=== PATIENT | female | born 1960 | race Caucasian/White ===

== ENCOUNTER 2023-04-11 14:45 | Outpatient (OUT) | payer BC, SELFPAY ==
--- NOTE | 2023-04-11 14:50 | MM_ITS ---
Patient Name: DESHAWN MANCIA MR#: [id number] : 1960 Exam Date: 04/11/2023 Ordering Doctor: IRMA Loredo CNP RADIOLOGY REPORT PROCEDURE: MM TOMOSYNTHESIS SCREENING BI COMPARISON: MG STEREO CORE NDL W CLIP LT, 11/16/2021. MAMMO POST BIOPSY LEFT, 11/16/2021. INDICATIONS: Screening Mammogram Calculator Name NCI Breast Cancer Risk Assessment Tool 5 Year Breast Cancer Risk 1.70% Lifetime Breast Cancer Risk 7.20% Personal Breast Cancer No Personal Ovarian Cancer No Treatments None Family Cancers None LOCATION: [facility] BREAST COMPOSITION: Heterogeneously dense,which may obscure small masses. FINDINGS: DIAGNOSTIC CATEGORY 2--BENIGN FINDING. NO CHANGE FROM COMPARISON. Scattered benign-appearing calcifications are present. Scattered benign-appearing lymph nodes are present. RIGHT BREAST: No significant suspicious finding. LEFT BREAST: No significant suspicious finding. Stable areas of focal asymmetry and two micro clip markers upper outer quadrant. RECOMMENDATIONS: ROUTINE MAMMOGRAM AND CLINICAL EVALUATION IN 12 MONTHS. PLEASE NOTE: A NORMAL MAMMOGRAM DOES NOT EXCLUDE THE POSSIBILITY OF BREAST CANCER. A CLINICALLY SUSPICIOUS PALPABLE LUMP SHOULD BE BIOPSIED. Dictated by: William Melchor MD on 04/12/2023 at 09:23 Approved by: William Melchor MD on 04/12/2023 at 09:26
== END 2023-04-11 14:46 | disposition home or self-care (01) ==
LOC: MAMMO 14:45
PROVIDERS: PCP Nurse Practitioner; Visit Provider Nurse Practitioner
DX: Z12.31 Encounter for screening mammogram for malignant neoplasm of breast (principal)
CPT/HCPCS: 77063; 77067

== ENCOUNTER 2025-03-27 07:36 | Outpatient (OUT) | payer MEDICARE, SELFPAY ==
--- OUTSIDE RECORDS SUMMARY | 2025-03-18 06:27 | XMS_ITS | Continuity of Care Document ---
Author Organization [facility] Address [address] [place] [address] Phone Care Team Providers Care Travel Agency Manager Name Role Phone Alexia Loredo NP-C Attending Provider Alexia Loredo NP-Francisco Primary Care Provider Care Teams Patient Care Team Team Status: Active Member Role/Relationship Status Dates Alexia Loredo NP-Francisco Primary Care Provider Active Visit Care Team Team Status: Active Member Role/Relationship Status Dates IFRAH Kahn Attending Provider Active Start: January 27, 2025 Patient Care Team Team Status: Inactive Member Role/Relationship Status Dates IFRAH Kahn Primary Care Provider Active Start: March 18, 2025 End: March 18, 2025Desire Kahntending ProviderActiveStart: March 18, 2025 End: March 18, 2025 Chief Complaint and Reason for Visit Chief Complaint Admit Date Medicare Wellness March 18, 2025 10:24am Reason for Visit Admit Date Elevated blood pressure reading March 18, 2025 10:24am Encounter for initial annual wellness visit (AWV) in Medicare patient March 18, 2025 10:24am Encounter for screening mamm ogram for malignant neoplasm of breast March 18, 2025 10:24am Epigastric pain March 18, 2025 10:24am Hiatal hernia March 18, 2025 10:24am Knee pain, left March 18, 2025 10:24am Mixed hyperlipidemia March 18, 2025 10:24am Allergies, Adverse Reactions, Alerts Allergen Type Severity Reaction Last Updated Verified Status No Known Allergies Allergy Unknown March 18, 2025 10:55amYesActive Social History Smoking Status Unknown if ever smoked Observation Status Observation Response Date of Response Legal Sex Female (finding) Sex Assigned At BirthFemaleMay 1960 Family History Relationship Condition Age at Onset Recorded Date/T tianna mother Diabetes mellitus Unknown Problems Active Problems Problem Diagnosis/Recorded Date Onset Date Stat us Polyp of urethra March 15, 2025 2:41pm Unknown Active Encounter for initial annual wellness visit (AWV) in Medicare patient March 18, 2025 6:22am Unknown A ctive Encounter for screening mamm ogram for malignant neoplasm of breast March 13, 2025 6:12pm Unknown Activ e Elevated blood pressure reading March 15, 2025 2:4 1pm Unknown Active Mixed hyperlipidemia March 18, 2025 6:24am Unknow n Active Epigastric pain March 18, 2025 11:22am Unknown Active Diverticulitis of colon with perforation March 15, 2025 2:41pm Unknown Active Knee pain, left March 18, 2025 11:21am Unknown Active Hiatal hernia March 18, 2025 11:22am Unknown Active Medications Medication Status Dose Units Route Directions Qty Days Refills S tart Date Stop Date End Date Reason(s) Instructions Adherence Multivitamin tablet Active 1 TAB PO Daily March 18, 2025 12:00amComplies with drug therapyAscorbic Acid (Vitamin C) 500 mg uvizkwPqatvi829GBSQUyrngCosjcovk 11th, 2025 12:00amComplies with drug therapyOmega-3 Fatty Acids ntzsjewIfgmso531CQCWOazbqZsjedmoq 11th, 2025 12:00am Complies with drug therapyMecobalamin (Vitamin B12) 500 mcg tablet,chewable ActiveMCGPONovember 2024 12:00amComplies with drug therapyOmeprazole 20 mg capsule,delayed release(DR/EC)Zzpkpr89BNXPFzddc756Raupgnqi 11th, 2025 12:00am Epigastric pain Hiatal hernia Epigastric pain Diaphragmatic hernia without obstruction or gangreneComplies with drug therapy Vital Signs Vital Reading Result Reference Range Collection Date/Time Height 65 [in_i] March 18, 2025 10:27uyYvlmpo13.31 kgMarch 18, 2025 10:37amBody Luxpksykllc50.5 [degF]97.6-99.0March 18, 2025 10:37amHeart Rate72 /min 60-100March 18, 2025 10:37amRespiratory rate18 /caf42-76EgvomuqtMarch 18, 2025 10:37amOxygen saturation by Pulse zwqpoxmg70 %95-100March 18, 2025 10:37am BP Zwuvkfcl068 mm[Hg]100-140March 18, 2025 10:37amBP Wruukwbvy02 mm[Hg] 60-100March 18, 2025 10:37amBMI (Body Mass Index)34.9 kg/f8TlrlvjudMarch 18, 2025 10:37am Advance Directives Advance Directive Response Recorded Date/ Time Advance Directives No January 12:36pm Insurance Providers Guarantor Edie Braxton Address [address] [place] [id number] Info.Home Phone: Coverage Status Update:2025 Payer Group Member ID Coverage Type Subscriber Relationship to Subscriber Effective Date Expiration Date Medicare [id number] Posey Id: [id number] [address] [facility] [address] Home Phone: Email: [email or web address] PFFS [id number] Posey Id: [id number] [address] [facility] [address] Home Phone: Email: [email or web address] Encounters Encounter Location(s) Arrival/Admit Date Discharge/Departure Date Discharge/Departure Disposition Provider(s) Non-patient / Non-visit -[facility] Family Medicine [facility] [place] [facility] [place] [place] 2024 11:59pm Alexia Loredo NP-IVONeparted Physician/Provider Office Visit-[facility] Family Medicine [facility]2024 10:24amNovember 2024 11:25amDischarged to home care or self care (routine discharge)ONEL KahnC Recent Diagnosis Onset Date Admit Date Elevated blood pressure reading Unknown March 18, 2025 10:24am Encounter for initial annual wellness visit (AWV) in Medicare patient Unknown March 18, 2025 10:24am Encounter for screening mamm ogram for malignant neoplasm of breast Unknown March 18, 2025 10:24 am Epigastric pain Unknown March 18, 025 10:24am Hiatal hernia Unknown March 18, 025 10:24am Knee pain, left Unknown March 18 025 10:24am Mixed hyperlipidemia Unknown March 182024 10:24am Assessments Diagnosis Onset Date Resolution Status Admit Date Elevated blood pressure reading acuteNovember 2024 10:24amEncounter for initial annual wellness visit (AWV) in Medicare patientacuteNovember 2024 10:24amEncounter for screening mammogram for malignant neoplasm of breastacuteNov2024 10:24am Epigastric painacuteNovember 2024 10:24amHiatal herniaacuteNovember 2024 10:24amKnee pain, leftacuteNovember 2024 10:24amMixed hyperlipidemia acuteNovember 2024 10:24am Plan of Treatment Author [facility]ia [facility]oredo [facility]Authored[facility] 2024 6:25amReviewed Ht/Wt/BMI Recommend eye exams yearly Recommend dental exam: twice a year Balance work/leisure activities exercise is recommended most days of the week (appropriate as chronic conditions allow) follow up yearly and prn will order mammogram no current meds check labs recommend diet low in fat and processed foods no current medications DASH diet Limit caffeine Contact office if chest pain, pressures, dizziness, shortness of breath, swelling in the legs Recommend slow position changes if you develop dizziness with position changes Future Tests Future scheduled test information is unavailable Pending Tests Test Name Ordered Date Scheduled Date Comprehensive Metabolic Panel March 18 6:25am XR knee LT 3V - NOT FOR ER USEMarch 18, 2025 11:21amMM screening mammo BI w/CADNovember 2024 6:23am Future Visits Future appointment information is unavailable Future Procedures Procedure Name Ordered Date Scheduled Date Dipstick and Microscopic March 18, 2025 6:2 5am Complete Blood Count Auto DiffNovember 2024 6:25amLipid PanelNovember 2024 6:25amThyroid Stimulating HormoneMarc[facility] 20[facility] 6:25am Future Medications Future medication information is unavailable Patient Instructions Patient instructions are unavailable
--- OUTSIDE RECORDS SUMMARY | 2025-03-27 07:43 | XMS_ITS | Clinical Summary ---
Author Organization [facility] Address [address] [place] [address], [address] [place] [address] Care Team Providers Care Fitting Supervisor Name Role Phone James David Joel APRN - HEAD OF CONSERVATION Primary Care Provider Allergies No known active allergies Medications MedicationSigDispense QuantityRefillsLast FilledStart DateEnd DateStatus Multiple Vitamin (MULTI VITAMIN DAILY PO) Take by mouthActive Blood Pressure KIT Indications:Elevated blood pressure reading1 kit by Does not apply route 2 times daily 1 kit 01/17/2019Active omeprazole (PRILOSEC) 20 MG delayed release capsule Indications:Gastroesophageal reflux disease, esophagitis presence not specified Take 1 capsule by mouth daily 90 capsule 01/17/2019Active levothyroxine (SYNTHROID) 75 MCG tablet Indications:Hypothyroidism, unspecified typeTake 1 tablet by mouth daily 60 tablet 02/01/2019Active Active Problems ProblemNoted DateDiagnosed EzqtBgmqzwvytesiin50/25/2019Elevated blood pressure egdlhbk8301/30/20190082Kdnpcnb92/25/2019Gastroesophageal reflux eqsfbak1501/17/2019 Resolved Problems ProblemNoted DateDiagnosed DateResolved DateColon cancer gvykzisxi09/11/2019 03/17/2019 Immunizations ImmunizationAdministration DatesNext DueInfluenza Virus Rfhczql0502/21/2019 Family History Medical HistoryRelationNameCommentsHigh Blood PressureFatherHigh Blood Pressure MotherRelationNameStatusCommentsFatherAliveMotherAlive Social History Tobacco UseTypesPacks/DayYears UsedDateSmoking Tobacco: FormerCigarettes Smokeless Tobacco: NeverAlcohol UseStandard Drinks/WeekCommentsYes0 (1 standard drink = 0.6 oz pure alcohol)PHQ-2AnswerDate RecordedPHQ-2 Ncouz446 CommentsNoSex and Gender InformationValueDate RecordedSex Assigned at BirthNot on fileLegal TsyYozlhr19/23/2019 2:01 PM EDTGender IdentityNot on file Sexual OrientationNot on file Last Filed Vital Signs Vital SignReadingTime TakenCommentsBlood Jhxkvlsg478/7802/20/2019 3:30 PM EDT Dnybi767402/20/2019 3:30 PM JMHXnyksemchtb39.1 ??C (97 ??F)02/20/2019 2:52 PM EDT Respiratory Fyqu5880 3:30 PM EDTOxygen Giiordhoai33%02/20/2019 3:30 PM EDTInhaled Oxygen Concentration--Ntackt18.7 kg (200 lb)02/20/2019 1:37 PM EDT Vavogb999.6 cm (5' 6 )02/20/2019 1:37 PM EDTBody Mass Index32.281 1:37 PM EDT Plan of Treatment Not on file Insurance Care Teams Team MemberRelationshipSpecialtyStart DateEnd Date David Ramirez APRN - HEAD OF CONSERVATION PCP - GeneralNurse Practitioner, Family12/28/18
--- OUTSIDE RECORDS SUMMARY | 2025-03-27 07:43 | XMS_ITS | Clinical Summary ---
Author Organization [employer] [facility] tem Address [facility] [place] [address] Care Team Providers Care Rig Mechanic Name Role Phone Alexia Loredo MANAGER [employer] Primary Care Provider Allergies No known active allergies Medications MedicationSigDispense QuantityRefillsLast FilledStart DateEnd DateStatus sod sulf-pot chloride-mag sulf 1.479-0.188- 0.225 gram tablet See instructional sheet given by office. Patient was given a [employer] voucher to use, this is not to be ran through patients insurance. 24 tablet 04/20/2022ctive omeprazole (PriLOSEC) 40 mg capsule Take 1 capsule (40 mg total) by mouth in the morning.03/31/2022ctive MULTIVITAMIN ORAL Take by mouth daily. Women's One A Day 50+Active psyllium husk (METAMUCIL ORAL) Take 2 tablets by mouth in the morning.Active Active Problems No known active problems Family History Medical HistoryRelationNameCommentsNo Known ProblemsFatherHypertensionMother RelationNameStatusCommentsFatherDeceasedMotherAlive Social History Tobacco UseTypesPacks/DayYears UsedDateSmoking Tobacco: FormerCigarettesQuit: 2018Smokeless Tobacco: Never Tobacco Cessation:Counseling Given: Not Answered Alcohol UseStandard Drinks/WeekCommentsYes0 (1 standard drink = 0.6 oz pure alcohol)sociallyChildcareAnswerDate JvndtitfFmzjbcevdRdowjas78/12/2019Employment AnswerDate JjwvsbzlGvbkscajkhIcywrbh15/12/2019Hunger ScreeningAnswerDate RecordedWithin the past 12 months we worried whether our food would run out before we got money to buy more.Never True04/20/2022Within the past 12 months the food we bought just didn't last and we didn't have money to get more.Never True04/20/2022CommentsUnknownSex and Gender InformationValueDate RecordedSex Assigned at BirthNot on fileLegal McjTmcwva45/06/2015 12:12 PM EDT Gender IdentityNot on fileSexual OrientationNot on file Last Filed Vital Signs Vital SignReadingTime TakenCommentsBlood Jznnldse647/80106/21/2021 12:53 PM EST Pulse--Szktdmkjhuy36.5 ??C (97.7 ??F)04/20/2022 12:53 PM ESTRespiratory Rate-- Oxygen Saturation--Inhaled Oxygen Concentration--Qtppji07.5 kg (195 lb) 04/20/2022 12:53 PM NMJWswjrz702.6 cm (5' 6 )04/20/2022 12:53 PM ESTBody Mass Index31.4704/20/2022 12:53 PM EST Plan of Treatment Health MaintenanceDue DateLast DoneCommentsDepression Asgxljbaw67/23/1972Tobacco Zkgaoxhzo18/23/1972DTaP,Tdap and Td Vaccines (1 - Tdap)09/27/1978Zoster (Shingles) Vaccine (1 of 2)09/27/2009dult BMI Zklethpnu50Fall Risk Abcoaxhhy06/23/2025OVID-19 Vaccine ( season)2025 03/18/2021, 06/08/2020, 05/15/2020Influenza Vtjgpoy80/, 02/21/2019, 02/19/2018, Additional history enyssyBafasiqqped99 RSV ( or age 60+ yrs) (1 - 1-dose 75+ series)09/27/2034 Medical Devices Not on file Procedures Procedure NamePriorityDate/TimeAssociated DiagnosisCommentsCOLONOSCOPYRoutine 05/25/2022 Diverticulitis from Last 3 Months or Most Recently Relevant to Health Maintenance Results * Colonoscopy (05/25/2022) Narrative Authorizing ProviderResult TypeResult StatusMichaeguillermo DELANEY PROCEDURE ORDERABLESFinal ResultPerforming OrganizationAddressCity/State/ZIP CodePhone Number MANUALLY TRANSCRIBED RESULTS from Last 3 Months or Most Recently Relevant to Health Maintenance Insurance Care Teams Team MemberRelationshipSpecialtyStart DateEnd Date Alexia Loredo, MANAGER [employer] PCP - GeneralNurse Qvazfikzfglr81/22/22
--- OUTSIDE RECORDS SUMMARY | 2025-03-27 07:43 | XMS_ITS | Clinical Summary ---
Author Organization [facility] Address [address] [place] [address] Care Team Providers Care Billing And Quality Technician Name Role Phone Aakash Hoffmann MD Primary Care Provider [phone] Alexia Loredo NP Unavailable [phone] Allergies No known active allergies Active Problems ProblemNoted DateDiagnosed DateEncounter for screening mammogram for malignant neoplasm of gfknba2605/15/2023 Family History Medical HistoryRelationNameCommentsHypertensionFatherHypertensionMotherRelation NameStatusCommentsFatherMother Social History Tobacco UseTypesPacks/DayYears UsedDateSmoking Tobacco: Every DayCigarettes Tobacco Cessation:Ready to Q uit: Not Asked; Counseling Given: Not Answered Alcohol UseStandard Drinks/TpdgRaceugjfOul61 (1 standard drink = 0.6 oz pure alcohol)CommentsUnknownSex and Gender InformationValueDate RecordedSex Assigned at BirthNot on fileLegal PuiCebxnr84/14/2023 12:34 PM EDTGender IdentityNot on fileSexual OrientationNot on file Last Filed Vital Signs Vital SignReadingTime TakenCommentsBlood Ckjhrhbi254/70005/10/2023 1:42 PM EST Ndhpt681605/10/2023 1:42 PM TQBUzisrrvlnfq56.6 ??C (97.8 ??F)05/10/2023 1:42 PM ESTRespiratory Klhp704405/10/2023 1:42 PM ESTOxygen Saturation--Inhaled Oxygen Concentration--Singpm29.5 kg (204 lb)05/10/2023 1:42 PM UWACljeue780.6 cm (5' 6 )05/10/2023 1:42 PM ESTBody Mass Index32.9305/10/2023 1:42 PM EST Plan of Treatment Not on file Insurance Care Teams Team MemberRelationshipSpecialtyStart DateEnd Date Aakash Hoffmann MD PCP - GeneralFamily Medicine11/18/22 Alexia Loredo NP Referring PhysicianNurse Practitioner11/18/22
--- OUTSIDE RECORDS SUMMARY | 2025-03-27 07:49 | XMS_ITS | CCD ---
Author Organization [facility]iniSyn[facility] Care Team Providers Care Habilitation Worker Name Role Phone Torrey Snow Primary Care Provider [phone] TORREY SNOW Primary Care Unavailable FARHAT JOHNSON Attending Unavailable TORREY SNOW Referring Unavailable TORREY SNOW Primary Care Unavailable TORREY SNOW Referring Unavailable TORREY SNOW Primary Care Unavailable TORREY SNOW Referring Unavailable TORREY SNOW Primary Care Unavailable TORREY SNOW Referring Unavailable TORREY SNOW Primary Care Unavailable MICAELA GOULD Admitting Unavailable MICAELA GOULD Attending Unavailable TORREY SNOW Primary Care Unavailable DR MOMO GOLDMAN Consulting Unavailaaron LADD, DR CANDICE Noyola Attending Unavailable WILBERTO, DR CANDICE Noyola Admitting Unavailable AICHHOLZ, SCHOOL PATROL ALEXIA Primary Care Unavailable Ruiz, DR Thomas Consulting Unavailable WILBERTO, DR CANDICE Noyola Consulting Unavailable JOEY, DR LIU Consulting Unavailable DILLAN, DEANNA Consulting Unavailable AICHHOLZ, SCHOOL PATROL ALEXIA Consulting Unavailable AICHHOLZ, SCHOOL PATROL ALEXIA Primary Care Unavailable AICHHOLZ, SCHOOL PATROL ALEXIA Attending Unavailable AICHHOLZ, SCHOOL PATROL ALEXIA Admitting Unavailable AICHHOLZ, SCHOOL PATROL ALEXIA Consulting Unavailable AICHHOLZ, SCHOOL PATROL ALEXIA Primary Care Unavailable AICHHOLZ, SCHOOL PATROL ALEXIA Attending Unavailable AICHHOLZ, SCHOOL PATROL ALEXIA Admitting Unavailable AICHHOLZ, SCHOOL PATROL ALEXIA Consulting Unavailable AICHHOLZ, SCHOOL PATROL ALEXIA Primary Care Unavailable AICHHOLZ, SCHOOL PATROL ALEXIA Attending Unavailable AICHHOLZ, SCHOOL PATROL ALEXIA Admitting Unavailable DR MICAELA AQUINO Consulting Unavailable Ruiz, DR Thomas Consulting Unavailable AICHHOLZ, SCHOOL PATROL ALEXIA Primary Care Unavailable AICHHOLZ, SCHOOL PATROL ALEXIA Attending Unavailable AICHHOLZ, SCHOOL PATROL ALEXIA Admitting Unavailable AICHHOLZ, SCHOOL PATROL ALEXIA Consulting Unavailable SUSI, DR MOMO Beavers Consulting Unavailaaron LOREDO, SCHOOL PATROL ALEXIA Primary Care Unavailable SUSI, DR MOMO Beavers Attending Unavailaaron GOLDMAN, DR MOMO Beavers Admitting UnavailDR Maurice Lima Consulting Unavailable AICHHOLZ, SCHOOL PATROL ALEXIA Primary Care Unavailable AICHHOLZ, SCHOOL PATROL ALEXIA Attending Unavailable AICHHOLZ, SCHOOL PATROL ALEXIA Admitting Unavailable AICHHOLZ, SCHOOL PATROL ALEXIA Consulting Unavailable SUSI, DR MOMO Beavers Consulting Unavailaaron LOREDO, SCHOOL PATROL ALEXIA Primary Care Unavailable SUSI, DR MOMO Beavers Attending Unavailaaron GOLDMAN, DR MOMO Beavers Admitting UnavailHENRIQUE Baires Consulting Unavailable EVITA YOUSSEF Consulting Unavailable SHINE MIRELES Consulting Unavailable Alexia Hall Attending Provider Alexia Hall Primary Care Provider Medications Current Medications MedicationDrug Class(es)DatesSig (Normalized)Sig (Original)ascorbic acid 500 mg oral tablet (1 source)Vitamin CStart: 04-35-0077fxmd 1 tablet by mouth once dailyAscorbic Acid (Vitamin C) 500 mg tablet Active 500 MG PO Daily March 18, 2025 12:00am Complieswith drug therapyazithromycin 250 mg oral tablet (2 sources)Macrolide AntimicrobialStart: 01-04-2019 End: 67-61-0472kryg 1 tablet by mouth once dailyazithromycin (ZITHROMAX) 250 MG tablet Take 1 tablet by mouth daily for 4 days 4 tablet 0 01/04/2019 01/08/2019 ActiveStart: 01-04-2019 End: 57-82-8111hwwcbasdhouy (ZITHROMAX) tablet 500 mgBlood Pressure KIT (1 source)Start: 22-77-4498Gfrmq Pressure KIT Indications: Elevated blood pressure reading 1 kit by Does not apply route 2 times daily 1 kit 0 01/17/2019 Activecalcium chloride 0.0014 meq/ml / potassium chloride 0.004 meq/ml / sodium chloride 0.103 meq/ml / sodium lactate 0.028 meq/ml injectable solution (1 source)Start: 74-64-5675lqgvbynn ringers infusionlevothyroxine sodium 0.075 mg oral tablet (1 source)l-ThyroxineStart: 29-97-6534seug 1 tablet by mouth once daily levothyroxine (SYNTHROID) 75 MCG tablet Indications: Hypothyroidism, unspecified type Take 1 tabletby mouth daily 60 tablet 0 02/01/2019 ActiveMultiple Vitamin (MULTI VITAMIN DAILY PO) (1 source)Multiple Vitamin (MULTI VITAMIN DAILY PO) Take by mouth 0 Active Multivitamin tablet (1 source)Start: 16-26-1921eeir 1 tablet by mouth once dailyMultivitamin tablet Active 1 TAB PO Daily March 18, 2025 12:00am Complies with drug therapy [place]-3 Fatty Acids capsule (1 source)Start: 32-63-9921fzvp 1 capsule by mouth once dailyOmega-3 Fatty Acids capsule Active 500 MG PO Daily March 18, 2025 12:00am Complies with drug th erapyomeprazole 20 mg delayed release oral capsule (2 sources)Proton Pump InhibitorStart: 40-00-7031idjt 1 capsule by mouth once dailyOmeprazole 20 mg capsule,delayed release(DR/EC) Active 20 MG PO Daily 30 March 18, 2025 12:00am Epigastric pain Hiatal hernia Epigastric pain Diaphragmatic hernia without obstruction or gangrene Complies with drug therapy Start: 07-66-0151gedy 1 capsule by mouth once dailyomeprazole (PRILOSEC) 20 MG delayed release capsule Indications: Gastroesophageal reflux disease, es ophagitis presence not specified Take 1 capsule by mouth daily 90 capsule 0 01/17/2019 Activevitamin b12 0.5 mg chewable tablet (1 source)Vitamin F00Wjvot: 54-19-2416Msvvkgybbmp (Vitamin B12) 500 mcg tablet,chewable Active MCG PO March 18, 2025 12:00am Complies with drug therapy Completed/Discontinued Medications MedicationDrug Class(es)DatesSig (Normalized)Sig (Original)magnesium sulfate 0.0277 meq/ml / potassium sulfate 0.0374 meq/ml / sodium sulfate 0.257 meq/ml oral solution (1 source)Start: 02-01-2019 End: 99-74-4129Ne Sulfate-K Sulfate-Mg Sulf (SUPREP BOWEL PREP KIT) 17.5-3.13-1.6 GM/177ML SOLN Take as directed 2Bottle 0 02/01/2019 02/20/2019 Discontinued (Stop Taking at Discharge)50 ml sodium chloride 9 mg/ml injection (1 source)Start: 01-04-2019 End: 01-04-20190.9 % sodium chloride bolustraMADol hydrochloride 50 mg oral tablet (1 source)Opioid AgonistStart: 01-04-2019 End: 16-01-8167dnyHFAkl (ULTRAM) tablet 50 mg Problems Active Problems Problem ClassificationProblemDateDocumented DateEpisodic/ChronicAbdominal hernia (3 sources)Diaphragmatic hernia without obstruction or gangrene; Translations: [Hiatal hernia]Onset: 394911-25-0176IemgeluyWixtflkem pain (2 sources)Epigastric pain; Translations: [Epigastric pain]73-81-0445Wtpdsgpb Anxiety disorders (1 source)Anxiety; Translations: [Anxiety]Onset: 597363-27-1630Gokayis Disorders of lipid metabolism (2 sources)Mixed hyperlipidemia; Translations: [Mixed hyperlipidemia]03-18-2025 ChronicDiverticulosis and diverticulitis (4 sources)Diverticulitis of large intestine with perforation and abscess without bleeding; Translations: [Diverticulitis of colon with perforation]Onset: 24-05-2601BbgiempTfuzwnjsvo disorders (1 source)Gastroesophageal reflux disease; Translations: [Gastroesophageal reflux disease]Onset: 854811-67-9712PhdauajRoavdiazrcls breast conditions (1 source)Diffuse cystic mastopathy of left breast; Translations: [DIFFUSE CYSTIC MASTOPATHY LT BREAST]Onset: 20-89-3709HvlsywvUecjo circulatory disease (3 sources)Elevated blood pressure; Translations: [Elevated blood-pressure reading, without diagnosis of hypertension]Onset: 545754-52-9888Vaegvhaq Other diseases of bladder and urethra (1 source)Polyp of urethra; Translations: [Urethral caruncle]18-08-5259Xfbrodwa Other liver diseases (1 source)Liver disease, unspecified; Translations: [LIVER DISEASE UNSPECIFIED] Onset: 38-52-5271DnhnparLgitw non-traumatic joint disorders (2 sources)Pain in left knee; Translations: [Left knee pain]05-15-5470Erjtrgtl Other nutritional; endocrine; and metabolic disorders (1 source)Obesity, unspecified; Translations: [OBESITY UNSPECIFIED]Onset: 49-84-6742NwxxdozYhsmk nutritional; endocrine; and metabolic disorders (1 source)Body mass index (BMI) 32.0-32.9, adult; Translations: [BODY MASS INDEX BMI 32.0-32.9 ADULT]Onset: 55-19-6388HbcmwbcAbyej screening for suspected conditions (not mental disorders or infectious disease) (15 sources)Other abnormal and inconclusive findings on diagnostic imaging of breast; Translations: [Encounter for screening mammogram for malignant neoplasm of breast]Onset: 12-01-9845IpgvuvekDinwcixpy (except that caused by tuberculosis or sexually transmitted disease) (1 source)Infective pneumonia; Translations: [Pneumonia due to organism]Episodic Screening and history of mental health and substance abuse codes (1 source)Personal history of nicotine dependence; Translations: [PERSONAL HISTORY OF NICOTINE DEPEND]Onset: 83-76-0520CrqwsymsGqhdbls disorders (1 source)Hypothyroidism; Translations: [Hypothyroidism]Onset: 01-30-2019 80-46-6943MfxazsnUgnumvvsvghw (1 source)Patient encounter status; Translations: [Colon cancer screening]Onset: 451775-81-9460Zaysawrcbkrv (1 source)CONTACT W/AND (SUSP) EXPOS COVID-19; Translations: [CONTACT W/AND (SUSP) EXPOS COVID-19]Onset: 04-13-2022 Past or Other Problems Problem ClassificationProblemDateDocumented DateEpisodic/ChronicNonmalignant breast conditions (1 source)Hypertrophy of breast; Translations: [HYPERTROPHY OF BREAST]Onset: 84-01-2208Nqfahhze Results Test NameValueInterpretationReference RangeFacilityCovid-19 PCR (CVDTBH)on 15-16-1071JLSA-CoV-2 (COVID-19) RNA JOSE E+probe Ql (Unsp spec)Not detectedNormal NOT DETECTEDThe [facility] HospitalComment on above:Result Comment: This test is not yet approved or cleared by the [place] FDA. When there are no FDA- approved or cleared tests available, and other criteria are met, FDA can make tests available under an emergency access mechanism called an Emergency Use Authorization (EUA). The EUA for this test is supported by the [place] of Health and Human Service's (HHS's) declaration that circumstances exist to justify the emergency use of in vitro diagnostics for the detection and/or diagnosis of the virus that causes COVID-19. This EUA will remain in effect (meaning this test can be used) for the duration of the COVID-19 declaration justifying emergency of IVDs, unless it is terminated or revoked by FDA (after which the test may no longer be used). When diagnostic testing is negative, the possibility of a false negative should be considered in the context of a patient's recent exposures and the presence of clinical signs and symptoms consistent with SARS-CoV-2.Performed By: #### CBC #### [facility] [address] [place] [address] Dr. Isaiah Harrell AUTO DIFFon 23-51-0776NGMI #0.0 103/ulNormal0.0-0.1[facility] HospitalComment on above:Performed By: #### CBC #### [facility] [address] [place] [address] Dr. Isaiah NevesBasophils/100 WBC (Bld)0.6 %Normal0.2-2.0[facility] Comment on above:Performed By: #### CBC #### [facility] [address] [place] [address] Dr. Isaiah Lara #0.3 103/ulNormal0.0-0.7The [facility] HospitalComment on above: Performed By: #### CBC #### [facility] [address] [place] [address] Dr. Isaiah Goodrichosinophils/100 WBC (Bld)3.9 %Normal0.9-7.0[facility] Comment on above:Performed By: #### CBC #### [facility] [address] [place] [address] Dr. Isaiah Goodrichrythrocyte distribution width (RBC) [Ratio]12.3 %Pfelhu94.0-15.0 [facility] HospitalComment on above:Performed By: #### CBC #### [facility] [address] [place] [address] Dr. Isaiah NevesHematocrit (Bld) [Volume fraction]35.3 %Critically low36.0-48.0 The [facility] HospitalComment on above:Performed By: #### CBC #### [facility] [address] [place] [address] Dr. Isaiah NevesHemoglobin (Bld) [Mass/Vol]12.1 g/sGXkgcpc48.0-16.0The [facility] HospitalComment on above:Performed By: #### CBC #### [facility] [address] [place] [address] Dr. Isaiah Spangler #0.02 10e3/ulNormal0.00-0.03The [facility] HospitalComment on above:Performed By: #### CBC #### [facility] [address] [place] [address] Dr. Isaiah Spangler %0.3 %Normal0.0-0.5The [facility] HospitalComment on above: Performed By: #### CBC #### [facility] [address] [place] [address] Dr. Isaiah Pitt #1.8 103/ulNormal1.2-3.8The [facility] HospitalComment on above:Performed By: #### CBC #### [facility] [address] [place] [address] Dr. Isaiah Mistryhocytes/100 WBC (Bld)26.7 %Voqjlv85.5-60.0The [facility] HospitalComment on above:Performed By: #### CBC #### [facility] [address] [place] [address] Dr. Isaiah NavaUAL DIFF REQNONormalThe [facility] HospitalComment on above: Performed By: #### CBC #### [facility] [address] [place] [address] Dr. Isaiah Wesley (RBC) [Entitic mass]31.0 myAldmje84.7-34.0The [facility] HospitalComment on above:Performed By: #### CBC #### [facility] [address] [place] [address] Dr. Isaiah Jaeger (RBC) [Mass/Vol]34.3 g/kNAbspse52.9-35.2The [facility] HospitalComment on above:Performed By: #### CBC #### [facility] [address] [place] [address] Dr. Isaiah JaegerV (RBC) [Entitic vol]90.5 vVCnghby95.0-99.0The [facility] HospitalComment on above:Performed By: #### CBC #### [facility] [address] [place] [address] Dr. Isaiah Garcia #0.4 103/ulNormal0.3-0.8The [facility] HospitalComment on above:Performed By: #### CBC #### [facility] [address] [place] [address] Dr. Isaiah Hurstocytes/100 WBC (Bld)6.4 %Normal1.7-12.0The [facility] Comment on above:Performed By: #### CBC #### [facility] [address] [place] [address] Dr. Isaiah Krueger #4.1 103/ulNormal1.4-6.5The [facility] HospitalComment on above:Performed By: #### CBC #### [facility] [address] [place] [address] Dr. Isaiah Wuutrophils/100 WBC (Bld)62.1 %Eeszoz12.0-75.0The [facility] HospitalComment on above:Performed By: #### CBC #### [facility] [address] [place] [address] Dr. Isaiah Holet mean volume (Bld) [Entitic vol]10.0 fLNormal9.5-13.5The [facility] HospitalComment on above:Performed By: #### CBC #### [facility] [address] [place] [address] Dr. Isaiah ChambersT282 103/zuIqjuyj250-470Jkt [facility] HospitalComment on above: Performed By: #### CBC #### [facility] [address] [place] [address] Dr. Isaiah GaleC3.90 106/ulCritically low4.20-5.40The [facility] HospitalComment on above:Performed By: #### CBC #### [facility] [address] [place] [address] Dr. Isaiah NevesWBC6.6 103/ulNormal4.0-11.0The [facility] HospitalComment on above: Performed By: #### CBC #### [facility] [address] [place] [address] Dr. Isaiah JasonF 14(COMP METB)on 63-15-3113Oiqlyzt [Mass/Vol]2.8 g/dL Critically low3.4-5.0The [facility] HospitalComment on above:Performed By: #### CMP #### [facility] [address] [place] [address] Dr. Isaiah NevesAlbumin/Globulin [Mass ratio]0.7 {ratio}NormalThe [facility] HospitalComment on above:Performed By: #### CMP #### [facility] [address] [place] [address] Dr. Isaiah GlassP [Catalytic activity/Vol]112 U/ZPmhdxl55-088Tfv [facility] HospitalComment on above:Performed By: #### CMP #### [facility] [address] [place] [address] Dr. Isaiah Guajardo [Catalytic activity/Vol]48 U/UErwbya40-27Pos [facility] HospitalComment on above:Performed By: #### CMP #### [facility] [address] [place] [address] Dr. Isaiah Leung gap [Moles/Vol]9.6 mmol/LNormalThe [facility] HospitalComment on above:Performed By: #### CMP #### [facility] [address] [place] [address] Dr. Isaiah Vanegas [Catalytic activity/Vol]22 U/RAcrouf59-56Qur [facility] HospitalComment on above:Performed By: #### CMP #### [facility] [address] [place] [address] Dr. Isaiah NevesBilirubin [Mass/Vol]0.2 mg/dLNormal0.2-1.0The [facility] Comment on above:Performed By: #### CMP #### [facility] [address] [address] [address] Isaiah NevesCalcium [Mass/Vol]8.7 mg/dLNormal8.5-10.1The [facility] Comment on above:Performed By: #### CMP #### [facility] [address] [address] [address] Isaiah NevesChloride [Moles/Vol]104 mmol/KIwmmxq68-267Bjz [facility] Comment on above:Performed By: #### CMP #### [facility] [address] [place] [address] Dr. Isaiah NevesCO2 [Moles/Vol]27.0 mmol/POyrozz24.0-32.0The [facility] Comment on above:Performed By: #### CMP #### [facility] [address] [place] [address] Dr. Isaiah NevesCreatinine [Mass/Vol]0.53 mg/dLCritically low0.55-1.02The [facility] HospitalComment on above:Performed By: #### CMP #### [facility] [address] [place] [address] Dr. Isaiah GoodrichGFR-AF MEXICAN>60Normal>=60The [facility] HospitalComment on above:Performed By: #### CMP #### [facility] [address] [address] [address] Isaiah GoodrichGFR-NON AF MEXICAN>60Normal>=60The [facility] HospitalComment on above:Performed By: #### CMP #### [facility] [address] [address] [address] Isaiah NevesGlobulin (S) [Mass/Vol]3.8 g/dLNormalThe [facility] HospitalComment on above:Performed By: #### CMP #### [facility] [address] [address] [address] Isaiah NevesGlucose [Mass/Vol]119 mg/dLCritically runz14-661[facility] HospitalComment on above:Performed By: #### CMP #### [facility] [address] [address] [address] Isaiah NevesPotassium [Moles/Vol]3.6 mmol/LNormal3.5-5.1The [facility] Comment on above:Performed By: #### CMP #### [facility] [address] [address] [address] Isaiah NevesProtein [Mass/Vol]6.6 g/dLNormal6.4-8.2[facility] Comment on above:Performed By: #### CMP #### [facility] [address] [address] [address] Isaiah Leonardodium [Moles/Vol]137 mmol/FMxjbxz825-774ZrcLancaster Municipal Hospital Comment on above:Performed By: #### CMP #### [facility] [address] [address] [address] Isaiah NevesUrea nitrogen [Mass/Vol]3.0 mg/dLCritically low7.0-18.0[facility] HospitalComment on above:Performed By: #### CMP #### [facility] [address] [address] [address] Isaiah Bergman nitrogen/Creatinine [Mass ratio]5.7 mg/mgNormalThe [facility] HospitalComment on above:Performed By: #### CMP #### [facility] [address] [address] [address] Isaiah Harrell AUTO DIFFon 77-37-1677EEQX #0.0 103/ulNormal0.0-0.1[facility] HospitalComment on above:Performed By: #### CBC #### [facility] [address] [address] [address] Isaiah NevesBaleannephils/100 WBC (Bld)0.6 %Normal0.2-2.0[facility] Comment on above:Performed By: #### CBC #### [facility] [address] [place] [address] Dr. Colon ChangEO #0.2 103/ulNormal0.0-0.7The [facility] HospitalComment on above: Performed By: #### CBC #### [facility] [address] [place] [address] Dr. Isaiah Goodrichosinophils/100 WBC (Bld)3.0 %Normal0.9-7.0The [facility] Comment on above:Performed By: #### CBC #### [facility] [address] [place] [address] Dr. Isaiah Goodrichrythrocyte distribution width (RBC) [Ratio]12.5 %Fywepl33.0-15.0 The [facility] HospitalComment on above:Performed By: #### CBC #### [facility] [address] [place] [address] Dr. Isaiah NevesHematocrit (Bld) [Volume fraction]36.0 %Ecqvwm06.0-48.0The [facility] HospitalComment on above:Performed By: #### CBC #### [facility] [address] [place] [address] Dr. Isaiah NevesHemoglobin (Bld) [Mass/Vol]12.2 g/sBTbjkts95.0-16.0The [facility] HospitalComment on above:Performed By: #### CBC #### [facility] [address] [place] [address] Dr. Isaiah Spangler #0.02 10e3/ulNormal0.00-0.03The [facility] HospitalComment on above:Performed By: #### CBC #### [facility] [address] [place] [address] Dr. Isaiah Spangler %0.3 %Normal0.0-0.5The [facility] HospitalComment on above: Performed By: #### CBC #### [facility] [address] [place] [address] Dr. Isaiah Pitt #1.7 103/ulNormal1.2-3.8The [facility] HospitalComment on above:Performed By: #### CBC #### [facility] [address] [place] [address] Dr. Yilan ChangLymphocytes/100 WBC (Bld)24.7 %Dqczpx23.5-60.0The [facility] HospitalComment on above:Performed By: #### CBC #### [facility] [address] [place] [address] Dr. Isaiah NavaUAL DIFF REQNONormalThe [facility] HospitalComment on above: Performed By: #### CBC #### [facility] [address] [place] [address] Dr. Isaiah Jaeger (RBC) [Entitic mass]31.3 ocSejxge87.7-34.0The [facility] HospitalComment on above:Performed By: #### CBC #### [facility] [address] [place] [address] Dr. Isaiah Jaeger (RBC) [Mass/Vol]33.9 g/tBJcbclh53.9-35.2The [facility] HospitalComment on above:Performed By: #### CBC #### [facility] [address] [place] [address] Dr. Isaiah Jaeger (RBC) [Entitic vol]92.3 dMRfngfn75.0-99.0The [facility] HospitalComment on above:Performed By: #### CBC #### [facility] [address] [place] [address] Dr. Isaiah Garcia #0.5 103/ulNormal0.3-0.8The [facility] HospitalComment on above:Performed By: #### CBC #### [facility] [address] [place] [address] Dr. Isaiah Hurstocytes/100 WBC (Bld)6.6 %Normal1.7-12.0The [facility] Comment on above:Performed By: #### CBC #### [facility] [address] [place] [address] Dr. Isaiah Krueger #4.5 103/ulNormal1.4-6.5The [facility] HospitalComment on above:Performed By: #### CBC #### [facility] [address] [place] [address] Dr. Isaiah Wuutrophils/100 WBC (Bld)64.8 %Qscjbw34.0-75.0The [facility] HospitalComment on above:Performed By: #### CBC #### [facility] Laboratory [address] [address] [address] Isaiah NevesPlatelet mean volume (Bld) [Entitic vol]10.1 fLNormal9.5-13.5The [facility] HospitalComment on above:Performed By: #### CBC #### [facility] [address] [address] [address] Isaiah NevesPLT272 103/bhSxyagw866-830Fwi [facility] on above: Performed By: #### CBC #### [facility] [address] [place] [address] Dr. Isaiah NevesRBC3.90 106/ulCritically low4.20-5.40The [facility] on above:Performed By: #### CBC #### [facility] [address] [place] [address] Dr. Isaiah NevesWBC7.0 103/ulNormal4.0-11.0The [facility] HospitalComment on above: Performed By: #### CBC #### [facility] [address] [place] [address] Dr. Isaiah NevesPROAp 14(COMP METB)on [id number] [Mass/Vol]2.6 g/dL Critically low3.4-5.0The [facility] on above:Performed By: #### CBC #### [facility] [address] [place] [address] Dr. Isaiah NevesAlbumin/Globulin [Mass ratio]0.7 {ratio}NormalThe [facility] HospitalCompromed[facility] on above:Performed By: #### CBC #### [facility] [address] [place] [address] Dr. Isaiah GlassP [Catalytic activity/Vol]125 U/LCritically enss20-506But [facility] on above:Performed By: #### CBC #### [facility] [address] [address] [address] Isaiah GlassT [Catalytic activity/Vol]60 U/LCritically mfty36-14Guk [facility] HospitalComment on above:Performed By: #### CBC #### [facility] [address] [address] [address] Isaiah NevesAnion gap [Moles/Vol]10.8 mmol/LNormalThe [facility] Comment on above:Performed By: #### CBC #### [facility] [address] [address] [address] Isaiah NevesAST [Catalytic activity/Vol]28 U/HEsyhwd26-27Tey [facility] HospitalComment on above:Performed By: #### CBC #### [facility] [address] [address] [address] Isaiah NevesBilirubin [Mass/Vol]0.3 mg/dLNormal0.2-1.0The [facility] Comment on above:Performed By: #### CBC #### [facility] [address] [address] [address] Isaiah NevesCalcium [Mass/Vol]8.1 mg/dLCritically low8.5-10.1The [facility] HospitalComment on above:Performed By: #### CBC #### [facility] [address] [address] [address] Isaiah NevesChloride [Moles/Vol]103 mmol/DAlabvj44-708Cez [facility] Comment on above:Performed By: #### CBC #### [facility] Laboratory [address] [address] [address] Isaiah NevesCO2 [Moles/Vol]25.7 mmol/MQcxkvr81.0-32.0The [facility] Comment on above:Performed By: #### CBC #### [facility] [address] [address] [address] Isaiah NevesCreatinine [Mass/Vol]0.51 mg/dLCritically low0.55-1.02The [facility] HospitalComment on above:Performed By: #### CBC #### [facility] [address] [address] [address] Isaiah GoodrichGFR-AF MEXICAN>60Normal>=60The [facility] HospitalComment on above:Performed By: #### CBC #### [facility] [address] [place] [address] Dr. Isaiah GoodrichGFR-NON AF MEXICAN>60Normal>=60The [facility] HospitalComment on above:Performed By: #### CBC #### [facility] [address] [place] [address] Dr. Isaiah NevesGlobulin (S) [Mass/Vol]3.8 g/dLNormalThe [facility] HospitalComment on above:Performed By: #### CBC #### [facility] [address] [place] [address] Dr. Isaiah NevesGlucose [Mass/Vol]110 mg/dLCritically dezx34-049Msn [facility] HospitalComment on above:Performed By: #### CBC #### [facility] [address] [place] [address] Dr. Isaiah NevesPotassium [Moles/Vol]3.5 mmol/LNormal3.5-5.1The [facility] Comment on above:Performed By: #### CBC #### [facility] [address] [place] [address] Dr. Isaiah NevesProtein [Mass/Vol]6.4 g/dLNormal6.4-8.2The [facility] Comment on above:Performed By: #### CBC #### [facility] [address] [place] [address] Dr. Isaiah NevesSodium [Moles/Vol]136 mmol/HLerztr361-722Cqe [facility] Comment on above:Performed By: #### CBC #### [facility] [address] [place] [address] Dr. Isaiah NevesUrea nitrogen [Mass/Vol]7.0 mg/dLNormal7.0-18.0The [facility] HospitalComment on above:Performed By: #### CBC #### [facility] [address] [place] [address] Dr. Isaiah NevesUrea nitrogen/Creatinine [Mass ratio]13.7 mg/mgNoWVUMedicine Harrison Community HospitalComment on above:Performed By: #### CBC #### [facility] [address] [id number] Isaiah NevesXR ABD FLAT UP_PA Satya [id number] ABD FLAT UP_PA CHEXAM: XR ABD FLAT UP_PA , 03/30/2022. COMPARISON STUDY: CT of the abdomen and pelvis with contrast 03/28/2022. FINDINGS: A total of 4 images were sent for interpretation. HISTORY: Lower abdominal pain. IMPRESSION: 1. The cardiomediastinal contours are within normal limits. 2. No dense consolidation, effusion, edema, failure or pneumothorax suspected. Minimal atelectatic change/fibrosis near the left costophrenic angle region noted. 3. High attenuation material within diverticula involving intrapelvic segment of the sigmoid colon is noted. Abnormal thickened appearance to the segment is suspected. Extraluminal foci of gas within the mid pelvic region from perforated diverticulitis again suspected. Please see report of CT of the abdomen and pelvis from 03/28/2022 for further detail. 4. The bowel pattern does not appear to be obstructive. Multiple subcentimeter pelvic phleboliths are identified. There are also clustered vascular phleboliths lateral to the left 10th and 11th ribs again noted. 5. Mild mid lumbar dextrocurvature with multilevel degenerative changes from L2-L3 through L5-S1 levels again noted. Electronically authenticated by: DEANNA DILLAN Date: 2022-03-30 11:07[facility] CenterCB AUTO DIFFon [id number] #0.0 103/ulNormal0.0-0.1The [facility] HospitalComment on above:Performed By: #### CBC #### [facility] [address] [place], [place] [address] Dr. Isaiah NevesBasophils/100 WBC (Bld)0.5 %Normal0.2-2.0The [facility] Comment on above:Performed By: #### CBC #### [facility] [address] [address] [address] Isaiah Lara #0.2 103/ulNormal0.0-0.7The [facility] HospitalComment on above: Performed By: #### CBC #### [facility] [address] [place] [address] Dr. Isaiah Goodrichosinophils/100 WBC (Bld)2.8 %Normal0.9-7.0The [facility] Comment on above:Performed By: #### CBC #### [facility] [address] [place] [address] Dr. Isaiah Goodrichrythrocyte distribution width (RBC) [Ratio]12.5 %Krfkrl31.0-15.0 The [facility] HospitalComment on above:Performed By: #### CBC #### [facility] [address] [place] [address] Dr. Isaiah NevesHematocrit (Bld) [Volume fraction]35.9 %Critically low36.0-48.0 The [facility] HospitalComment on above:Performed By: #### CBC #### [facility] [address] [place] [address] Dr. Isaiah NevesHemoglobin (Bld) [Mass/Vol]12.0 g/wUGwktun32.0-16.0The [facility] HospitalComment on above:Performed By: #### CBC #### [facility] [address] [place] [address] Dr. Isaiah Spangler #0.03 10e3/ulNormal0.00-0.03The [facility] HospitalComment on above:Performed By: #### CBC #### [facility] [address] [place] [address] Dr. Isaiah Spangler %0.4 %Normal0.0-0.5The [facility] HospitalComment on above: Performed By: #### CBC #### [facility] [address] [place] [address] Dr. Isaiah Pitt #1.6 103/ulNormal1.2-3.8The [facility] HospitalComment on above:Performed By: #### CBC #### [facility] [address] [place] [address] Dr. Yilan ChangLymphocytes/100 WBC (Bld)20.0 %Critically low20.5-60.0The [facility] HospitalComment on above:Performed By: #### CBC #### [facility] [address] [place] [address] Dr. Isaiah Roman DIFF REQNONormalThe [facility] HospitalComment on above: Performed By: #### CBC #### [facility] [address] [place] [address] Dr. Isaiah Jaeger (RBC) [Entitic mass]31.1 dfMpubjx60.7-34.0The [facility] HospitalComment on above:Performed By: #### CBC #### [facility] [address] [place] [address] Dr. Isaiah Jaeger (RBC) [Mass/Vol]33.4 g/oOAxlomi79.9-35.2The [facility] HospitalComment on above:Performed By: #### CBC #### [facility] [address] [place] [address] Dr. Isaiah Mcmahan (RBC) [Entitic vol]93.0 rHZchzse43.0-99.0The [facility] HospitalComment on above:Performed By: #### CBC #### [facility] [address] [place] [address] Dr. Isaiah Garcia #0.4 103/ulNormal0.3-0.8The [facility] HospitalComment on above:Performed By: #### CBC #### [facility] [address] [place] [address] Dr. Isaiah Hurstocytes/100 WBC (Bld)5.3 %Normal1.7-12.0The [facility] Comment on above:Performed By: #### CBC #### [facility] [address] [place] [address] Dr. Isaiah Krueger #5.5 103/ulNormal1.4-6.5The [facility] HospitalComment on above:Performed By: #### CBC #### [facility] [address] [place] [address] Dr. Isaiah Wuutrophils/100 WBC (Bld)71.0 %Arrtny35.0-75.0The [facility] Hospitalment on above:Performed By: #### CBC #### [facility] [address] [address] [address] Isaiah Holet mean volume (Bld) [Entitic vol]10.1 fLNormal9.5-13.5The [facility] HospitalComment on above:Performed By: #### CBC #### [facility] [address] [address] [address] Isaiah NevesPLT245 103/mvCrdqib862-989Cxf [facility] on above: Performed By: #### CBC #### [facility] [address] [place] [address] Dr. Isaiah NevesRBC3.86 106/ulCritically low4.20-5.40The [facility] on above:Performed By: #### CBC #### [facility] [address] [place] [address] Dr. Isaiah NevesWBC7.8 103/ulNormal4.0-11.0The [facility] on above: Performed By: #### CBC #### [facility] [address] [place] [address] Dr. Isaiah Torres 14(COMP METB)on [id number] [Mass/Vol]2.7 g/dL Critically low3.4-5.0The [facility] on above:Performed By: #### CMP #### [facility] [address] [place] [address] Dr. Isaiah NevesAlbumin/Globulin [Mass ratio]0.7 {ratio}NormalThe [facility] on above:Performed By: #### CMP #### [facility] [address] [place] [address] Dr. Isaiah GlassP [Catalytic activity/Vol]141 U/LCritically spps81-243Qoc [facility] on above:Performed By: #### CMP #### [facility] [address] [address] [address] Isaiah GlassT [Catalytic activity/Vol]92 U/LCritically aavg92-67Lwx [facility] HospitalComment on above:Performed By: #### CMP #### [facility] [address] [address] [address] Isaiah Zamoraon gap [Moles/Vol]16.8 mmol/LNormalThe [facility] Comment on above:Performed By: #### CMP #### [facility] [address] [address] [address] Isaiah NevesAST [Catalytic activity/Vol]65 U/LCritically tphz40-63Jkc [facility] HospitalComment on above:Performed By: #### CMP #### [facility] [address] [address] [address] Isaiah NeevsBilirubin [Mass/Vol]0.4 mg/dLNormal0.2-1.0The [facility] Comment on above:Performed By: #### CMP #### [facility] [address] [address] [address] Isaiah NevesCalcium [Mass/Vol]8.0 mg/dLCritically low8.5-10.1The [facility] HospitalComment on above:Performed By: #### CMP #### [facility] [address] [address] [address] Isaiah NevesChloride [Moles/Vol]104 mmol/TCoermw79-655Rvy [facility] Comment on above:Performed By: #### CMP #### [facility] [address] [address] [address] Isaiah NevesCO2 [Moles/Vol]20.6 mmol/LCritically low21.0-32.0The [facility] HospitalComment on above:Performed By: #### CMP #### [facility] [address] [address] [address] Isaiah NevesCreatinine [Mass/Vol]0.49 mg/dLCritically low0.55-1.02The [facility] HospitalComment on above:Performed By: #### CMP #### [facility] [address] [place] [address] Dr. Isaiah GoodrichGFR-AF MEXICAN>60Normal>=60The [facility] HospitalComment on above:Performed By: #### CMP #### [facility] [address] [place] [address] Dr. Isaiah GoodrichGFR-NON AF MEXICAN>60Normal>=60The [facility] HospitalComment on above:Performed By: #### CMP #### [facility] [address] [place] [address] Dr. Isaiah NevesGlobulin (S) [Mass/Vol]4.0 g/dLNormalThe [facility] HospitalComment on above:Performed By: #### CMP #### [facility] [address] [place] [address] Dr. Isaiah NevesGlucose [Mass/Vol]72 mg/dLCritically aoo19-918Llk [facility] HospitalComment on above:Performed By: #### CMP #### [facility] [address] [place] [address] Dr. Isaiah NevesPotassium [Moles/Vol]3.4 mmol/LCritically low3.5-5.1The [facility] HospitalComment on above:Performed By: #### CMP #### [facility] [address] [place] [address] Dr. Isaiah NevesProtein [Mass/Vol]6.7 g/dLNormal6.4-8.2[facility] Comment on above:Performed By: #### CMP #### [facility] [address] [place] [address] Dr. Isaiah NevesSodium [Moles/Vol]138 mmol/IViejfv989-974Uny [facility] Comment on above:Performed By: #### CMP #### [facility] [address] [place] [address] Dr. Isaiah NevesUrea nitrogen [Mass/Vol]14.0 mg/dLNormal7.0-18.0The [facility] HospitalComment on above:Performed By: #### CMP #### [facility] [address] [place] [address] Dr. Isaiah NevesUrea nitrogen/Creatinine [Mass ratio]28.6 mg/mgNoalThKettering Health TroyComment on above:Performed By: #### CMP #### [facility] [address] [place] [address] Dr. Isaiah Harrell AUTO DIFFon [id number] #0.0 103/ulNormal0.0-0.1The [facility] HospitalComment on above:Performed By: #### CBC #### [facility] [address] [place] [address] Dr. Isaiah NevesBasophils/100 WBC (Bld)0.3 %Normal0.2-2.0[facility] Comment on above:Performed By: #### CBC #### [facility] [address] [place] [address] Dr. Isaiah Lara #0.1 103/ulNormal0.0-0.7The [facility] HospitalComment on above: Performed By: #### CBC #### [facility] [address] [place] [address] Dr. Isaiah Goodrichosinophils/100 WBC (Bld)1.2 %Normal0.9-7.0[facility] Comment on above:Performed By: #### CBC #### [facility] [address] [place] [address] Dr. Isaiah Goodrichrythrocyte distribution width (RBC) [Ratio]12.8 %Pwirmx70.0-15.0 The [facility] HospitalComment on above:Performed By: #### CBC #### [facility] [address] [place] [address] Dr. Isaiah NevesHematocrit (Bld) [Volume fraction]37.8 %Sxtzlr10.0-48.0The [facility] HospitalComment on above:Performed By: #### CBC #### [facility] [address] [place] [address] Dr. Isaiah NevesHemoglobin (Bld) [Mass/Vol]12.9 g/xPQupecj58.0-16.0The [facility] HospitalComment on above:Performed By: #### CBC #### [facility] [address] [place] [address] Dr. Isaiah Spangler #0.03 10e3/ulNormal0.00-0.03The [facility] HospitalComprom[facility] on above:Performed By: #### CBC #### [facility] [address] [place] [address] Dr. Isaiah Spangler %0.3 %Normal0.0-0.5The [facility] HospitalComp[facility] on above: Performed By: #### CBC #### [facility] [address] [place] [address] Dr. Isaiah Pitt #1.5 103/ulNormal1.2-3.8The [facility] HospitalComprom[facility] on above:Performed By: #### CBC #### [facility] [address] [place] [address] Dr. Isiaah Mistryhocytes/100 WBC (Bld)15.5 %Critically low20.5-60.0The [facility] HospitalComprom[facility] on above:Performed By: #### CBC #### [facility] [address] [place] [address] Dr. Isaiah NaavUAL DIFF REQNONormalThe [facility] on above: Performed By: #### CBC #### [facility] [address] [place] [address] Dr. Isaiah Jaeger (RBC) [Entitic mass]31.6 fyGdtfez00.7-34.0The [facility] on above:Performed By: #### CBC #### [facility] [address] [place] [address] Dr. Isaiah Jaeger (RBC) [Mass/Vol]34.1 g/kQRvxyxl98.9-35.2The [facility] on above:Performed By: #### CBC #### [facility] [address] [place] [address] Dr. Isaiah Jaeger (RBC) [Entitic vol]92.6 xVNsieeq86.0-99.0The [facility] HospitalComment on above:Performed By: #### CBC #### [facility] [address] [address] [address] Isaiah Garcia #0.4 103/ulNormal0.3-0.8The [facility] HospitalComment on above:Performed By: #### CBC #### [facility] [address] [address] [address] Isaiah Hurstocytes/100 WBC (Bld)4.2 %Normal1.7-12.0The [facility] Comment on above:Performed By: #### CBC #### [facility] [address] [place] [address] Dr. Isaiah Krueger #7.5 103/ulCritically high1.4-6.5The [facility] Comment on above:Performed By: #### CBC #### [facility] [address] [place] [address] Dr. Isaiah Wuutrophils/100 WBC (Bld)78.5 %Critically high43.0-75.0The [facility] HospitalComment on above:Performed By: #### CBC #### [facility] [address] [place] [address] Dr. Isaiah Jeffries mean volume (Bld) [Entitic vol]9.8 fLNormal9.5-13.5The [facility] HospitalComment on above:Performed By: #### CBC #### [facility] [address] [place] [address] Dr. Isaiah NevesPLT250 103/vlQeaxxf628-209Ozg [facility] HospitalComment on above: Performed By: #### CBC #### [facility] [address] [place] [address] Dr. Isaiah NevesRBC4.08 106/ulCritically low4.20-5.40The [facility] HospitalComment on above:Performed By: #### CBC #### [facility] [address] [place] [address] Dr. Isaiah NevesWBC9.5 103/ulNormal4.0-11.0The [facility] HospitalComment on above: Performed By: #### CBC #### [facility] [address] [address] [address] Isaiah NevesCT ABD/PELV W CONon [id number] ABD/PELV W CONEXAMINATION: CT ABD/PELV W CON, 03/28/2022 9:19 AM EST HISTORY: Lower abdominal pain fever COMPARISON: None. TECHNIQUE: CT scan of the abdomen and pelvis was performed with IV contrast. CT dose reduction technique was used, including Automated Exposure Control. FINDINGS: LUNG BASES: No visible pulmonary or pleural disease. LIVER: Diffuse hypoattenuation consistent with hepatic steatosis. Focal area of sclerosis inferior right hepatic lobe measuring 1.2 cm axial image 52, nonspecific. Subtle contour deformity lateral inferior capsule axial image 54. BILIARY: No dilatation or calcification. PANCREAS: No lesion, fluid collection, ductal dilatation, or atrophy. SPLEEN: No enlargement or focal lesion. ADRENALS: No mass or enlargement. KIDNEYS: Left renal cortical cyst. No hydronephrosis or obstructing nephrolithiasis BOWEL/MESENTERY: Moderate wall thickening of the sigmoid colon with surrounding inflammatory changes. Area of mixed extraluminal air, soft tissue and fluid attenuation axial image 107 measuring 3.3 cm. Small hiatal hernia. Nonobstructive bowel gas pattern. Normal appendix. AORTA/VASCULAR: No aneurysm or dissection. RETROPERITONEUM: No mass or adenopathy. LYMPH NODES: No adenopathy. URINARY BLADDER: No visible focal wall thickening, lesion, or calculus. PELVIC ORGANS: No visible mass. Pelvic organs appropriate for patient age. ABDOMINAL WALL: No mass or hernia. BONES: No bony lesion or fracture. OTHER: Negative. IMPRESSION: Acute perforated sigmoid colon diverticulitis with likely developing phlegmon Right hepatic lobe capsular and parenchymal lesions as described above, nonspecific Electronically authenticated by: MAURICE MELCHOR Date: 2022-03-28 11:13NoWVUMedicine Harrison Community HospitalCULTURE BLOODon [id number] examination of blood, cultureCulture Observations: NO GROWTH AT 5 DAYS.NormalThe [facility] HospitalComment on above:Performed By: #### CBC #### [facility] [address] [address] [address] Isaiah NevesMicroscopic examination of blood, cultureCulture Observations: NO GROWTH AT 5 DAYS.NormalThe [facility] HospitalComment on above:Performed By: #### CBC #### [facility] [address] [place] [address] Dr. Isaiah Dunnevid-19 PCR (CVDTB)on [id number]-CoV-2 (COVID-19) RNA JOSE E+probe Ql (Unsp spec)Not detectedNormalNOT DETECTEDThe [facility] Comment on above:Result Comment: When diagnostic testing is negative, the possibility of a false negative should be considered in the context of a patient's recent exposures and the presence of clinical signs and symptoms consistent with SARS-CoV-2. This test is not yet approved or cleared by the [place] FDA. When there are no FDA-approved or cleared tests available, and other criteria are met, FDA can make tests available under an emergency access mechanism called an Emergency Use Authorization (EUA). The EUA for this test is supported by the [place] of Health and Human Service's declaration that circumstances exist to justify the emergency use of in vitro diagnostics for the detection and/or diagnosis of the virus that causes COVID-19. This EUA will remain in effect for the duration of the COVID-19 declaration justifying emergency of IVDs, unless it is terminated or revoked by the FDA (after which the test may no longer be used).Performed By: #### CVDTBH #### [facility] [address] [place] [address] Dr. Isaiah Luciano URINE PROFILEon [id number] Ql (U)SMALLAbnormal NEGATIVELancaster Municipal HospitalComment on above:Performed By: #### ERUR #### [facility] [address] [place] [address] Dr. Isaiah Herrera (U)CLEARNormalCLEARLancaster Municipal HospitalComment on above: Performed By: #### ERUR #### [facility] [address] [place] [address] Dr. Isaiah Castro (U)YELLOWNormalYELLOWThe [facility] HospitalComment on above: Performed By: #### ERUR #### [facility] [address] [place] [address] Dr. Isaiah Ovalle micrscopic examination will be performed if indicated. NormalLancaster Municipal HospitalComment on above:Performed By: #### ERUR #### [facility] [address] [place] [address] Dr. Isaiah NevesGlucose Ql (U)NegativeNormalNEGATIVELancaster Municipal HospitalComment on above:Performed By: #### ERUR #### [facility] [address] [place] [address] Dr. Isaiah NevesHemoglobin Ql (U)NegativeNormalNEGATIVELancaster Municipal Hospital Comment on above:Performed By: #### ERUR #### [facility] [address] [place] [address] Dr. Isaiah NevesKetones Ql (U)15 mg/dlAbnormalNEGWVUMedicine Barnesville Hospital Comment on above:Performed By: #### ERUR #### [facility] [address] [place] [address] Dr. Isaiah NevesLEUKOCYTESNegativeNormalNEGATIVELancaster Municipal HospitalComment on above:Performed By: #### ERUR #### [facility] [address] [place] [address] Dr. Isaiah NevesNitrite Ql (U)NegativeNormalNEGATIVELancaster Municipal HospitalComment on above:Performed By: #### ERUR #### [facility] [address] [place] [address] Dr. Isaiah NevespH (U)6.0 [pH]Normal5-9Lancaster Municipal HospitalComment on above: Performed By: #### ERUR #### [facility] [address] [place] [address] Dr. Isaiah NevesSPEC GRAVITY1.327Iwizgd5.005-<=1.025Lancaster Municipal HospitalComment on above:Performed By: #### ERUR #### [facility] [address] [place] [address] Dr. Isaiah Peoples PROTEINTRACENormalNEGATIVE/ TRACELancaster Municipal HospitalComment on above:Performed By: #### ERUR #### [facility] [address] [place] [address] Dr. Isaiah WISE INDNOT INDICATEDNormalThe [facility] HospitalComment on above:Performed By: #### ERUR #### [facility] [address] [place] [address] Dr. Isaiah Bustamante Qn (U)4 {Julien'U}/dLAbnormal0.2 - 1.0The [facility] HospitalComment on above:Performed By: #### ERUR #### [facility] [address] [place] [address] Dr. Isaiah NevesLIPASEon [id number] [Catalytic activity/Vol]91.0 U/LNormal 73.0-393.0The [facility] HospitalComment on above:Performed By: #### CBC #### [facility] [address] [place] [address] Dr. Isaiah NevesPROF 14(COMP METB)on 32-61-1596Zzrmbui [Mass/Vol]3.4 g/dLNormal 3.4-5.0The [facility] HospitalComment on above:Performed By: #### CBC #### [facility] [address] [place] [address] Dr. Isaiah NevesAlbumin/Globulin [Mass ratio]0.8 {ratio}NormalThe [facility] HospitalComment on above:Performed By: #### CBC #### [facility] [address] [place] [address] Dr. Isaiah High [Catalytic activity/Vol]130 U/LCritically dvjj63-975Xve [facility] HospitalComment on above:Performed By: #### CBC #### [facility] [address] [place] [address] Dr. Isaiah Guajardo [Catalytic activity/Vol]104 U/LCritically lwtp86-16Foi [facility] HospitalComment on above:Performed By: #### CBC #### [facility] [address] [place] [address] Dr. Isaiah Leung gap [Moles/Vol]13.1 mmol/LNormalThe [facility] Comment on above:Performed By: #### CBC #### [facility] [address] [address] [address] Isaiah NevesAST [Catalytic activity/Vol]72 U/LCritically vycu32-10Mrv [facility] HospitalComment on above:Performed By: #### CBC #### [facility] [address] [address] [address] Isaiah NevesBilirubin [Mass/Vol]0.6 mg/dLNormal0.2-1.0The [facility] Comment on above:Performed By: #### CBC #### [facility] [address] [address] [address] Isaiah NevesCalcium [Mass/Vol]8.7 mg/dLNormal8.5-10.1The [facility] Comment on above:Performed By: #### CBC #### [facility] [address] [address] [address] Isaiah NevesChloride [Moles/Vol]99 mmol/JOzbcux67-287Ifo [facility] Comment on above:Performed By: #### CBC #### [facility] [address] [address] [address] Isaiah NevesCO2 [Moles/Vol]24.7 mmol/PSztqgt27.0-32.0The [facility] Comment on above:Performed By: #### CBC #### [facility] [address] [address] [address] Isaiah NevesCreatinine [Mass/Vol]0.66 mg/dLNormal0.55-1.02The [facility] HospitalComment on above:Performed By: #### CBC #### [facility] [address] [address] [address] Isaiah GoodrichGFR-AF MEXICAN>60Normal>=60The [facility] HospitalComment on above:Performed By: #### CBC #### [facility] [address] [address] [address] Isaiah GoodrichGFR-NON AF MEXICAN>60Normal>=60The [facility] HospitalComment on above:Performed By: #### CBC #### [facility] [address] [address] [address] Isaiah NevesGlobulin (S) [Mass/Vol]4.4 g/dLNormOhio State Health SystemComment on above:Performed By: #### CBC #### [facility] [address] [address] [address] Isaiah NevesGlucose [Mass/Vol]95 mg/wQUvdisg13-781Fce [facility] Comment on above:Performed By: #### CBC #### [facility] [address] [address] [address] Isaiah NevesPotassium [Moles/Vol]3.8 mmol/LNormal3.5-5.1The [facility] Comment on above:Performed By: #### CBC #### [facility] [address] [address] [address] Isaiah eNvesProtein [Mass/Vol]7.8 g/dLNormal6.4-8.2The [facility] Comment on above:Performed By: #### CBC #### [facility] [address] [address] [address] Isaiah NevesSodium [Moles/Vol]133 mmol/LCritically ivx010-855Box [facility] HospitalComment on above:Performed By: #### CBC #### [facility] [address] [address] [address] Isaiah NevesUrea nitrogen [Mass/Vol]13.0 mg/dLNormal7.0-18.0The [facility] HospitalComment on above:Performed By: #### CBC #### [facility] [address] [address] [address] Isaiah Bergman nitrogen/Creatinine [Mass ratio]19.7 mg/mgNoWVUMedicine Harrison Community HospitalComment on above:Performed By: #### CBC #### [facility] [address] [address] [address] Isaiah NevesMAMMVeronica POST BIOPSY LEFTon [id number] POST BIOPSY LEFTPatient: DESHAWN BRAXTON Stephan Exam Date: 11/16/2021 : 1960 Gender:F Ordering : IRMA LOREDO [facility] Admission #: [id number] Family : Order #: [id number] CLICK HERE TO VIEW EXAM RADIOLOGY REPORT PROCEDURE: MAMMOGRAM POST BIOPSY IMAGES COMPARISON: MG MAMM LT DIAG FU, 11/04/2021. MG STEREO CORE NDL W CLIP LT, 11/16/2021. INDICATIONS: Mammography abnormal BREAST COMPOSITION: FINDINGS: BIOPSY MARKER: 2 metallic markers are identified. A spring marker indicates biopsy of the medial abnormality. A butterfly marker indicates biopsy the lateral abnormality. BREAST FINDINGS: Expected postprocedural changes with subcutaneous stranding and air Dictated by: Maurice Melchor MD on 11/16/2021 at 11:04 Approved by: Maurice Melchor MD on 11/16/2021 at 11:06[facility] CenterMG STEREO CORE NDL W CLIP LTon [id number] STEREO CORE NDL W CLIP LTPatient: DESHAWN BRAXTON Exam Date: 11/16/2021 : 1960 Gender:F Ordering : IRMA LOREDO [facility] Admission #: [id number] Family : Order #: [id number] CLICK HERE TO VIEW EXAM This report includes an Addendum and supersedes previous reports for this exam. RADIOLOGY REPORT PROCEDURE: MAMMOGRAM BIOPSY STEREO CORE COMPARISON: MG STEREO CORE NDL W CLIP LT, 11/16/2021. INDICATIONS: Abnormal findings on diagnostic imaging of breast DESCRIPTION: Following informed consent, digital stereotactic mammographic views were obtained to localize the lesion. Multiple vacuum-assisted core biopsies were obtained. Specimen images were obtained to confirm proper sampling. The location of the biopsy was then marked as indicated below. FINDINGS: RECOMMENDATIONS: SPECIMEN #, LOCATION: 6 samples medial left breast SPECIMEN IMAGE: Mild obtain BIOPSY NEEDLE: 10 gauge Revolve(r) vacuum core biopsy needle. MARKER(S) PLACED: A single spring shaped metallic marker was placed in the appropriate targeted location. MEDICATION: 3 cubic cm Buffered 1% lidocaine superficial; 7 cubic cm 1% lidocaine with epinephrine deep. COMPLICATIONS: None. PATHOLOGY / LAB: Pending. CONCLUSION: 1. Technically successful biopsy of the medial left breast lesion. 2. Pathology results are pending. An addendum will be added when pathology results are final. Dictated by: Maurice Melchor MD on 11/16/2021 at 11:16 Approved by: Maurice Melchor MD on 11/16/2021 at 11:16 ADDENDUM: The pathology report is now available and shows benign findings concordant with the imaging findings. Final diagnosis fibrocystic enves . Evidence of neoplasm is not seen. Surgical pathology report faxed to the ordering provider and receipt verified with Subha by telephone Dictated by: Maurice Melchor MD on 11/25/2021 at 08:51 Approved by: Maurice Melchor MD on 11/25/2021 at 08:52[facility] CenterMG STEREO CORE NDL W CLIP LTPatient: DESAHWN BRAXTON Exam Date: 11/16/2021 : 1960 Gender:F Ordering : IRMA ALEXIADennys LOREDO [facility] Admission #: [id number] Family : Order #: [id number] CLICK HERE TO VIEW EXAM This report includes an Addendum and supersedes previous reports for this exam. RADIOLOGY REPORT PROCEDURE: MAMMOGRAM BIOPSY STEREO CORE COMPARISON: MG MAMM LT DIAG FU, 11/04/2021. INDICATIONS: Mammography abnormal DESCRIPTION: Following informed consent, digital stereotactic mammographic views were obtained to localize the lesion. Multiple vacuum-assisted core biopsies were obtained. Specimen images were obtained to confirm proper sampling. The location of the biopsy was then marked as indicated below. FINDINGS: RECOMMENDATIONS: SPECIMEN #, LOCATION: Six samples, lateral left breast SPECIMEN IMAGE: Not obtained BIOPSY NEEDLE: 10 gauge Revolve(r) vacuum core biopsy needle. MARKER(S) PLACED: A single butterfly shape metallic marker was placed in the appropriate targeted location. MEDICATION: 5 cubic cm Buffered 1% lidocaine superficial; 10 cubic cm 1% lidocaine with epinephrine deep. COMPLICATIONS: None. PATHOLOGY / LAB: Pending. CONCLUSION: 1. Technically successful biopsy of the left lateral breast lesion. 2. Pathology results are pending. An addendum will be added when pathology results are final. Dictated by: Maurice Melchor MD on 11/16/2021 at 11:06 Approved by: Maurice Melchor MD on 11/16/2021 at 11:15 ADDENDUM: The pathology report is now available and shows benign findings concordant with the imaging findings. 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 Evidence of neoplasm is not seen. Pathology report faxed to ordering provider and confirmed by telephone with Subha Dictated by: Maurice Melchor MD on 11/25/2021 at 08:48 Approved by: Maurice Melchor MD on 11/25/2021 at 08:50[facility] CenterMG MAMM LT DIAG FUon [id number] MAMM LT DIAG FUPatient: DESHAWN BRAXTON Exam Date: 11/04/2021 : 1960 Gender:F Ordering : IRMA ALEXIA [facility]ED[facility] Admission #: [id number] Family : Order #: [id number] CLICK HERE TO VIEW EXAM RADIOLOGY REPORT PROCEDURE: MAMMOGRAM LEFT DIAGNOSTIC DIGITAL FOLLOW UP, 11/04/2021, 09:51 ULTRASOUND BREAST LEFT LIMITED, 11/04/2021, 10:13 COMPARISON: MG MAMM SCREEN 3D SHARDA CAD, 10/19/2021. INDICATIONS: Abnormal findings on diagnostic imaging of breast Calculator Name NCI Breast Cancer Risk Assessment Tool 5 Year Breast Cancer Risk 1.10% Lifetime Breast Cancer Risk 5.00% Personal Breast Cancer No Personal Ovarian Cancer No Treatments None Family Cancers None LOCATION: [facility] BREAST COMPOSITION: Heterogeneously dense,which may obscure small masses. FINDINGS: DIAGNOSTIC CATEGORY 4--SUSPICIOUS FOR MALIGNANCY. FINDING DOES NOT EXHIBIT CLASSIC FINDINGS OF BREAST CANCER: Spot compression views demonstrate two persistent areas of focal asymmetry with mild architectural distortion upper outer quadrant left breast. Ultrasound demonstrates a lesion at the 3 o'clock position, hard on elastography measuring 1.3 x 1.1 x 1.1 cm, this likely corresponds to the more superior lesion on the MLO projection. The 2nd lesion seen by mammography is not definitively seen by ultrasound. These findings were discussed with the patient. Stereotactic breast biopsy of both lesions was recommended to the patient. RECOMMENDATIONS: STEREOTACTIC BREAST BIOPSY: LEFT BREAST - TWO LESIONS PLEASE NOTE: A NORMAL MAMMOGRAM DOES NOT EXCLUDE THE POSSIBILITY OF BREAST CANCER. A CLINICALLY SUSPICIOUS PALPABLE LUMP SHOULD BE BIOPSIED. Dictated by: Maurice Melchor MD on 11/04/2021 at 10:48 Approved by: Maurice Melchor MD on 11/04/2021 at 11:01[facility] CenterUS BREAST LEFT LIMITEDon [id number] BREAST LEFT LIMITEDPatient: DESHAWN BRAXTON Exam Date: 11/04/2021 : 1960 Gender:F Ordering : IRMA LOREDO [facility] Admission #: [id number] Family : Order #: [id number] CLICK HERE TO VIEW EXAM RADIOLOGY REPORT PROCEDURE: MAMMOGRAM LEFT DIAGNOSTIC DIGITAL FOLLOW UP, 11/04/2021, 09:51 ULTRASOUND BREAST LEFT LIMITED, 11/04/2021, 10:13 COMPARISON: MG MAMM SCREEN 3D SHARDA CAD, 10/19/2021. INDICATIONS: Abnormal findings on diagnostic imaging of breast Calculator Name NCI Breast Cancer Risk Assessment Tool 5 Year Breast Cancer Risk 1.10% Lifetime Breast Cancer Risk 5.00% Personal Breast Cancer No Personal Ovarian Cancer No Treatments None Family Cancers None LOCATION: [facility] BREAST COMPOSITION: Heterogeneously dense,which may obscure small masses. FINDINGS: DIAGNOSTIC CATEGORY 4--SUSPICIOUS FOR MALIGNANCY. FINDING DOES NOT EXHIBIT CLASSIC FINDINGS OF BREAST CANCER: Spot compression views demonstrate two persistent areas of focal asymmetry with mild architectural distortion upper outer quadrant left breast. Ultrasound demonstrates a lesion at the 3 o'clock position, hard on elastography measuring 1.3 x 1.1 x 1.1 cm, this likely corresponds to the more superior lesion on the MLO projection. The 2nd lesion seen by mammography is not definitively seen by ultrasound. These findings were discussed with the patient. Stereotactic breast biopsy of both lesions was recommended to the patient. RECOMMENDATIONS: STEREOTACTIC BREAST BIOPSY: LEFT BREAST - TWO LESIONS PLEASE NOTE: A NORMAL MAMMOGRAM DOES NOT EXCLUDE THE POSSIBILITY OF BREAST CANCER. A CLINICALLY SUSPICIOUS PALPABLE LUMP SHOULD BE BIOPSIED. Dictated by: Maurice Melchor MD on 11/04/2021 at 10:48 Approved by: Maurice Melchor MD on 11/04/2021 at 11:01[facility] CenterMG MAMM SCREEN 3D SHARDA CADon [id number] MAMM SCREEN 3D SHARDA CADPatient: DESHAWN BRAXTON Exam Date: 10/19/2021 : 1960 Gender:F Ordering : IRMA LOREDO [facility] Admission #: [id number] Family : Order #: [id number] CLICK HERE TO VIEW EXAM RADIOLOGY REPORT PROCEDURE: MAMMOGRAM SCREENING 3D BILATERAL CAD COMPARISON: MG MAMM SHARDA SCRN W CAD DIG, 05/06/2013. INDICATIONS: Screening for malignant neoplasm of breast Calculator Name NCI Breast Cancer Risk Assessment Tool 5 Year Breast Cancer Risk 1.10% Lifetime Breast Cancer Risk 5.00% Personal Breast Cancer No Personal Ovarian Cancer No Treatments None Family Cancers None LOCATION: [facility] BREAST COMPOSITION: Heterogeneously dense,which may obscure small masses. FINDINGS: DIAGNOSTIC CATEGORY 0--INCOMPLETE: NEED ADDITIONAL IMAGING EVALUATION. RIGHT BREAST: No significant suspicious finding. LEFT BREAST: 2 asymmetric areas of greater density within the upper-outer quadrant, mid breast suspected to represent dense residual fibroglandular tissue, but a mass cannot be completely excluded when compared to patient's most recent studies (May 06, 2013). Spot magnification views and ultrasound evaluation are recommended to exclude a mass. RECOMMENDATIONS: ADDITIONAL MAMMOGRAPHIC VIEWS REQUIRED: LEFT BREAST - LEFT CRANIOCAUDAL SPOT MAGNIFICATION VIEW - LEFT OBLIQUE SPOT MAGNIFICATION VIEW - ULTRASOUND: LEFT BREAST PLEASE NOTE: A NORMAL MAMMOGRAM DOES NOT EXCLUDE THE POSSIBILITY OF BREAST CANCER. A CLINICALLY SUSPICIOUS PALPABLE LUMP SHOULD BE BIOPSIED. Dictated by: Micaela Aquino M.D. on 10/20/2021 at 09:43 Approved by: Micaela Aquino M.D. on 10/20/2021 at 10:38[facility] HospitalOG PANEL 2: 30 to 65on 10-14-2021..NormalLancaster Municipal Hospital Comment on above:Result Comment: Performed at: WBPerformed By: #### CBC #### [facility] [address] [place] [address] Dr. Isaiah Wright Gdln ACOG Wsmsudd42-30HywuadMtfWVUMedicine Harrison Community HospitalComment on above:Performed By: #### CBC #### [facility] [address] [address] [address] Isaiah NevesDIAGNOSIS:CommentBarney Children's Medical CenterComment on above: Result Comment: NEGATIVE FOR INTRAEPITHELIAL LESION OR MALIGNANCY. Performed at: WBPerformed By: #### CBC #### [facility] [address] [address] [address] Isaiah NevesHPV AptimaNegativeNormalNegativeLancaster Municipal HospitalComment on above:Result Comment: This nucleic acid amplification test detects fourteen high-risk HPV types (16,18,31,33,35,39,45,51,52,56,58,59,66,68) without differentiation. Performed at: =GPerformed By: #### CBC #### [facility] [address] [place] [address] Dr. Isaiah NevesMethodology:CommentWadsworth-Rittman Hospital on above: Result Comment: This liquid based ThinPrep(R) pap test was screened with the use of an image guided system. Performed at: WBPerformed By: #### CBC #### [facility] [address] [place] [address] Dr. Isaiah NevesNote:CommentNoCenterville on above:Result Comment: The Pap smear is a screening test designed to aid in the detection of premalignant and malignant conditions of the uterine cervix. It is not a diagnostic procedure and should not be used as the sole means of detecting cervical cancer. Both false-positive and false-negative reports do occur. . Performed at: WBPerformed By: #### CBC #### [facility] [address] [place] [address] Dr. Isaiah NevesPerformed by:CommentNoCenterville on above: Result Comment: Deb Linda, Case Repairer (ASCP) Performed at: WBPerformed By: #### CBC #### [facility] [address] [place] [address] Dr. Isaiah NevesSpecimegail adequacy:CommentWadsworth-Rittman Hospital on above:Result Comment: Satisfactory for evaluation. Performed at: WBPerformed By: #### CBC #### [facility] [address] [place] [address] Dr. Isaiah Harrell AUTO DIFFon [id number] #0.0 103/ulNormal0.0-0.1L[facility] Municipal HospitalComment on above:Performed By: #### CBC #### [facility] [address] [place] [address] Dr. Isaiah NevesBasophils/100 WBC (Bld)0.7 %Normal0.2-2.0[facility] Comment on above:Performed By: #### CBC #### [facility] [address] [place] [address] Dr. Isaiah Lara #0.1 103/ulNormal0.0-0.7The [facility] HospitalComment on above: Performed By: #### CBC #### [facility] [address] [place] [address] Dr. Isaiah Goodrichosinophils/100 WBC (Bld)2.3 %Normal0.9-7.0The [facility] Comment on above:Performed By: #### CBC #### [facility] [address] [place] [address] Dr. Isaiah Goodrichrythrocyte distribution width (RBC) [Ratio]13.4 %Lzsfja60.0-15.0 The [facility] HospitalComment on above:Performed By: #### CBC #### [facility] [address] [place] [address] Dr. Isaiah NevesHematocrit (Bld) [Volume fraction]42.0 %Nxjvjy19.0-48.0The [facility] HospitalComment on above:Performed By: #### CBC #### [facility] [address] [place] [address] Dr. Isaiah NevesHemoglobin (Bld) [Mass/Vol]13.3 g/iMOvnhsq32.0-16.0The [facility] Harrison Community Hospitalment on above:Performed By: #### CBC #### [facility] [address] [place] [address] Dr. Isaiah Spangler #0.01 10e3/ulNormal0.00-0.03The [facility] HospitalComment on above:Performed By: #### CBC #### [facility] [address] [place] [address] Dr. Isaiah Spangler %0.2 %Normal0.0-0.5The [facility] HospitalComment on above: Performed By: #### CBC #### [facility] [address] [place] [address] Dr. Isaiah Pitt #2.1 103/ulNormal1.2-3.8The [facility] HospitalComment on above:Performed By: #### CBC #### [facility] [address] [place] [address] Dr. Isaiah Hoppermphocytes/100 WBC (Bld)37.8 %Inxtgv85.5-60.0The [facility] HospitalComment on above:Performed By: #### CBC #### [facility] [address] [place] [address] Dr. Isaiah NavaUAL DIFF REQNONormalThe [facility] HospitalComment on above: Performed By: #### CBC #### [facility] [address] [place] [address] Dr. Isaiah Jaeger (RBC) [Entitic mass]30.9 oeBrrkyj16.7-34.0The [facility] HospitalComment on above:Performed By: #### CBC #### [facility] [address] [place] [address] Dr. Isaiah Jaeger (RBC) [Mass/Vol]31.7 g/hKLzdlxx89.9-35.2The [facility] HospitalComment on above:Performed By: #### CBC #### [facility] [address] [place] [address] Dr. Isaiah Jaeger (RBC) [Entitic vol]97.4 gUJslzil85.0-99.0The [facility] HospitalComment on above:Performed By: #### CBC #### [facility] [address] [place] [address] Dr. Isaiah Garcia #0.4 103/ulNormal0.3-0.8The [facility] HospitalComment on above:Performed By: #### CBC #### [facility] [address] [place] [address] Dr. Isaiah Hurstocytes/100 WBC (Bld)7.0 %Normal1.7-12.0The [facility] Comment on above:Performed By: #### CBC #### [facility] [address] [place] [address] Dr. Isaiah Krueger #2.9 103/ulNormal1.4-6.5The [facility] HospitalComment on above:Performed By: #### CBC #### [facility] [address] [address] [address] Isaiah Wuutrophils/100 WBC (Bld)52.0 %Jelgco52.0-75.0[facility] on above:Performed By: #### CBC #### [facility] [address] [address] [address] Isaiah Holet mean volume (Bld) [Entitic vol]11.0 fLNormal9.5-13.5The [facility] on above:Performed By: #### CBC #### [facility] [address] [place] [address] Dr. Isaiah NevesPLT273 103/gtKuovrc022-356Zhx [facility] on above: Performed By: #### CBC #### [facility] [address] [place] [address] Dr. Isaiah NevesRBC4.31 106/ulNormal4.20-5.40The [facility] on above:Performed By: #### CBC #### [facility] [address] [place] [address] Dr. Isaiah NevesWBC5.6 103/ulNormal4.0-11.0[facility] on above: Performed By: #### CBC #### [facility] [address] [place] [address] Dr. Isaiah NevesLIPID PROFILEon [id number]-HDL RATIO [facility] HospitalComp[facility] on above:Result Comment: 3.3 - 4.4 LOW RISK 4.4 - 7.1 AVERAGE RISK 7.1 - 11.0 MODERATE RISK >11.0 HIGH RISKPerformed By: #### URIC, TSH, LIPID, CMP #### [facility] [address] [place] [address] Dr. Isaiah NevesCholesterol [Mass/Vol]238 mg/dLCritically high<=200The [facility] on above:Performed By: #### URIC, TSH, LIPID, CMP #### [facility] [address] [place] [address] Dr. Isaiah Houstonesterol in HDL [Mass/Vol]84 mg/dLCritically vvjn69-45SlgMercy Health St. [facility] on above:Performed By: #### URIC, TSH, LIPID, CMP #### [facility] [address] [address] [address] Isaiah NevesCholesterol in LDL [Mass/Vol]144.4 mg/dLNoWVUMedicine Harrison Community HospitalComment on above:Performed By: #### URIC, TSH, LIPID, CMP #### [facility] [address] [address] [address] Isaiah Houstonesterluan.total/Cholesterol in HDL [Mass ratio]2.8 {ratio} NormalThe [facility] HospitalCompromedica [facility] on above:Performed By: #### URIC, TSH, LIPID, CMP #### [facility] [address] [address] [address] Isaiah Escobedo NORMAL> or = 60 mg/dl - LOW CARDIOVASCULAR RISK <40 mg/dl - HIGH CARDIOVASCULAR RISKNoWVUMedicine Harrison Community HospitalComment on above:Performed By: #### URIC, TSH, LIPID, CMP #### [facility] [address] [address] [address] Isaiah Horton CALC NORMALSEE BELOWBarney Children's Medical CenterComment on above:Result Comment: <100 mg/dl OPTIMAL 100 - 129 mg/dl NEAR OR ABOVE OPTIMAL 130 - 159 mg/dl BORDERLINE HIGH 160 - 189 mg/dl HIGH >190 mg/dl VERY HIGH Performed By: #### URIC, TSH, LIPID, CMP #### [facility] [address] [address] [address] Isaiah NevesTriglyceride [Mass/Vol]48 mg/dLNormal<=150[facility] Comment on above:Performed By: #### URIC, TSH, LIPID, CMP #### [facility] [address] [address] [address] Isaiah NevesVLDL CALC9.6 mg/dLNoWVUMedicine Harrison Community HospitalComment on above: Performed By: #### URIC, TSH, LIPID, CMP #### [facility] [address] [address] [address] Isaiah Torres 14(COMP METB)on [id number] [Mass/Vol]3.9 g/dLNormal 3.4-5.0The [facility] HospitalComment on above:Performed By: #### URIC, TSH, LIPID, CMP #### [facility] [address] [place] [address] Dr. Isaiah NevesAlbumin/Globulin [Mass ratio]1.0 {ratio}NormalThe [facility] HospitalComment on above:Performed By: #### URIC, TSH, LIPID, CMP #### [facility] [address] [place] [address] Dr. Isaiah High [Catalytic activity/Vol]77 U/QEmfbel29-216Xhu [facility] HospitalComment on above:Performed By: #### URIC, TSH, LIPID, CMP #### [facility] [address] [place] [address] Dr. Isaiah Guaajrdo [Catalytic activity/Vol]35 U/EJprwvv59-22Obf [facility] HospitalComment on above:Performed By: #### URIC, TSH, LIPID, CMP #### [facility] [address] [place] [address] Dr. Isaiah Leung gap [Moles/Vol]13.9 mmol/LNormalThe [facility] Comment on above:Performed By: #### URIC, TSH, LIPID, CMP #### [facility] [address] [place] [address] Dr. Isaiah Vanegas [Catalytic activity/Vol]25 U/WAyemam73-69Ohn [facility] Community Hospitalment on above:Performed By: #### URIC, TSH, LIPID, CMP #### [facility] [address] [place] [address] Dr. Isaiah NevesBilirubin [Mass/Vol]0.6 mg/dLNormal0.2-1.0The [facility] Comment on above:Performed By: #### URIC, TSH, LIPID, CMP #### [facility] [address] [place] [address] Dr. Isaiah NevesCalcium [Mass/Vol]8.9 mg/dLNormal8.5-10.1The [facility] Comment on above:Performed By: #### URIC, TSH, LIPID, CMP #### [facility] [address] [address] [address] Isaiah NevesChloride [Moles/Vol]102 mmol/AZkengl97-261Olh [facility] Comment on above:Performed By: #### URIC, TSH, LIPID, CMP #### [facility] [address] [address] [address] Isaiah NevesCO2 [Moles/Vol]26.1 mmol/RZqqvcb86.0-32.0The [facility] Comment on above:Performed By: #### URIC, TSH, LIPID, CMP #### [facility] [address] [place] [address] Dr. Isaiah NevesCreatinine [Mass/Vol]0.67 mg/dLNormal0.55-1.02The [facility] HospitalComment on above:Performed By: #### URIC, TSH, LIPID, CMP #### [facility] [address] [place] [address] Dr. Isaiah GoodrichGFR-AF MEXICAN>60Normal>=60The [facility] HospitalComment on above:Performed By: #### URIC, TSH, LIPID, CMP #### [facility] [address] [place] [address] Dr. Isaiah GoodrichGFR-NON AF MEXICAN>60Normal>=60The [facility] HospitalComment on above:Performed By: #### URIC, TSH, LIPID, CMP #### [facility] [address] [place] [address] Dr. Isaiah NevesGlobulin (S) [Mass/Vol]3.9 g/dLNormalThe [facility] HospitalComment on above:Performed By: #### URIC, TSH, LIPID, CMP #### [facility] [address] [place] [address] Dr. Isaiah NevesGlucose [Mass/Vol]99 mg/bETxxfhr95-686Yob [facility] Comment on above:Performed By: #### URIC, TSH, LIPID, CMP #### [facility] [address] [address] [address] Isaiah NevesPotassium [Moles/Vol]4.0 mmol/LNormal3.5-5.1The [facility] Comment on above:Performed By: #### URIC, TSH, LIPID, CMP #### [facility] [address] [place] [address] Dr. Isaiah NevesProtein [Mass/Vol]7.8 g/dLNormal6.4-8.2The [facility] Comment on above:Performed By: #### URIC, TSH, LIPID, CMP #### [facility] [address] [place] [address] Dr. Isaiah Leonardodium [Moles/Vol]138 mmol/YHpparn854-016Ckd [facility] Comment on above:Performed By: #### URIC, TSH, LIPID, CMP #### [facility] [address] [place] [address] Dr. Isaiah NevesUrea nitrogen [Mass/Vol]15.0 mg/dLNormal7.0-18.0[facility] HospitalComment on above:Performed By: #### URIC, TSH, LIPID, CMP #### [facility] [address] [place] [address] Dr. Isaiah Bergman nitrogen/Creatinine [Mass ratio]22.4 mg/mgNoWVUMedicine Harrison Community HospitalComment on above:Performed By: #### URIC, TSH, LIPID, CMP #### [facility] [address] [place] [address] Dr. Isaiah Torres [id number] uIU/mLCritically high0.358-3.740[facility] HospitalComment on above:Performed By: #### URIC, TSH, LIPID, CMP #### [facility] [address] [place] [address] Dr. Isaiah LUCIA BELOWBarney Children's Medical CenterComment on above: Result Comment: <0.34 UIU/ml HYPERTHYROID 0.34-5.60 UIU/ml EUTHYROID >5.60 UIU/ml HYPOTHYROIDPerformed By: #### URIC, TSH, LIPID, CMP #### [facility] [address] [address] [address] Isaiah Peoples RANDOM W/MICROSCOPICon [id number]V SEENLancaster Municipal HospitalComment on above:Performed By: #### CBC #### [facility] [address] [address] [address] Isaiah NevesBilirubin Ql (U)NegativeNormalNEGATIVERiverside Methodist Hospital on above:Performed By: #### CBC #### [facility] [address] [address] [address] Isaiah NevesCASTSEENAbnormalNONE SEENLancaster Municipal HospitalComment on above: Performed By: #### CBC #### [facility] [address] [address] [address] Isaiah NevesClarity (U)CLEARNormalCLEARLancaster Municipal HospitalComment on above: Performed By: #### CBC #### [facility] [address] [address] [address] Isaiah NevesColor (U)YELLOWNormalYELLOWLancaster Municipal HospitalComment on above: Performed By: #### CBC #### [facility] [address] [address] [address] Isaiah NevesCrystals LM Nom (Urine sed)NONE SEENNormalNONE SEENLancaster Municipal HospitalComment on above:Performed By: #### CBC #### [facility] [address] [address] [address] Colon ChangEpithelial cells LM Ql (Urine sed)RARENormalNONE SEEN /RARELancaster Municipal HospitalComment on above:Performed By: #### CBC #### [facility] [address] [address] [address] Isaiah NevesGlucose Ql (U)NegativeNormalNEGATIVELancaster Municipal HospitalComment on above:Performed By: #### CBC #### [facility] [address] [address] [address] Isaiah NevesHemoglobin Ql (U)NegativeNormalNEGATIVELancaster Municipal Hospital Comment on above:Performed By: #### CBC #### [facility] [address] [address] [address] Isaiah NevesHYALINE CASTRARENormalThe [facility] HospitalComment on above: Performed By: #### CBC #### [facility] [address] [address] [address] Isaiah Carreraones Ql (U)NegativeNormalNEGATIVELancaster Municipal HospitalComment on above:Performed By: #### CBC #### [facility] [address] [address] [address] Isaiah NevesLEUKOCYTESNegativeNormalNEGATIVEThe [facility] HospitalComment on above:Performed By: #### CBC #### [facility] [address] [address] [address] Isaiah NevesMUCOUSSMALLAbnormalNONE SEENLancaster Municipal HospitalComment on above:Performed By: #### CBC #### [facility] [address] [address] [address] Isaiah Mazariegostrite Ql (U)NegativeNormalNEGATIVELancaster Municipal HospitalComment on above:Performed By: #### CBC #### [facility] [address] [address] [address] Isaiah NevespH (U)6.0 [pH]Normal5-9[facility] HospitalComment on above: Performed By: #### CBC #### [facility] [address] [address] [address] Isaiah NevesRBCNONE SEENAbnormal0-2The [facility] HospitalComment on above: Performed By: #### CBC #### [facility] [address] [address] [address] Isaiah NevesSPEC GRAVITY1.784Wdkurh1.005-<=1.025The [facility] HospitalComment on above:Performed By: #### CBC #### [facility] [address] [address] [address] Isaiah NevesUA PROTEINNegativeNormalNEGATIVE/ TRACEThe [facility] Comment on above:Performed By: #### CBC #### [facility] [address] [address] [address] Isaiah NevesUrobilinogen Qn (U)0.2 {Julien'U}/dLNormal0.2 - 1.0The [facility] HospitalComment on above:Performed By: #### CBC #### [facility] [address] [address] [address] Isaiah NevesWBC0-2AbnormalNONE SEENThe [facility] HospitalComment on above: Performed By: #### CBC #### [facility] [address] [place] [address] Dr. Isaiah NevesURIC ACID SERUMon [id number] [Mass/Vol]5.9 mg/dLNormal 2.6-6.0The [facility] HospitalComment on above:Performed By: #### URIC, TSH, LIPID, CMP #### [facility] [address] [place] [address] Dr. Isaiah NevesLipid Profileon [id number] [Mass/Vol]257 mg/dLHigh<200 [facility] HospitalComment on above:Result Comment: Cholesterol Guidelines: <200 Desirable 200-240 Borderline >240 UndesirablePerformed By: #### CDP, LIP, CMPX #### [facility] [address] [place] [address] [place] [address] Serger: Isael Riojas, CLAREholesterol in HDL [Mass/Vol]88 mg/dLNormal>40 [facility] HospitalCompromedica [facility] on above:Result Comment: HDL Guidelines: <40 Undesirable 40-59 Borderline >59 DesirablePerformed By: #### CDP, LIP, CMPX #### [facility] [address] [place] [address] Serger: CLARE Spragueholesterol in LDL [Mass/Vol]158 mg/dLHigh0-130 [facility] HospitalComp[facility] on above:Result Comment: LDL Guidelines: <100 Desirable 100-129 Near to/above Desirable 130-159 Borderline >159 Undesirable Direct (measured) LDL and calculated LDL are not interchangeable tests.Performed By: #### CDP, LIP, CMPX #### [facility] [address] [place], [place] [id number] Serger: Kathryn Spraguestkaitlynn.total/Cholesterol in HDL [Mass ratio] 2.9 {ratio}Normal<5[facility] HospitalComment on above:Performed By: #### CDP, LIP, CMPX #### [facility] [address] [place], [place] [id number] Serger: Isael Riojas MDTriglyceride [Mass/Vol]54 mg/dLNormal<150[facility] Institute Of LivingComment on above:Result Comment: Triglyceride Guidelines: <150 Desirable 150-199 Borderline 200-499 High >499 Very high Based on AHA Guidelines for fasting triglyceride, February 2012.Performed By: #### CDP, LIP, CMPX #### [address] [place], [place] [id number] Serger: CLARE Spragueholesterol in VLDL [Mass/Vol]NOT REPORTEDNormal 1-30[facility] Of LivingComment on above:Performed By: #### CDP, LIP, CMPX #### [facility] [address] [place] [address] Serger: Isael Riojas [facility] CENTERM DIGITAL SCREEN W OR WO CAD BILATERALon [id number] DIGITAL SCREEN W OR WO CAD BILATERALEXAMINATION: BILATERAL DIGITAL SCREENING MAMMOGRAM 01/30/2019 TECHNIQUE: Screening mammography was performed with tomosynthesis including MLO and CC views of the bilateral breasts. Computer aided detection was used for the interpretation of this exam. COMPARISON: 05/06/2013 HISTORY: Screening. No current complaints nor prior procedures. Breast cancer in mother. FINDINGS: There are scattered areas of fibroglandular density. No new dominant masses, suspicious calcifications, nor areas of architectural distortion are seen. Tomosynthesis images demonstrate no suspicious abnormality. IMPRESSION: 1. Benign mammogram. 2. Based on the Tyrer-Cuzick (ERIN) model, this patient's lifetime risk for developing breast cancer is 25.6%. The [place] [employer] considers women with a 20% or greater lifetime risk for developing breast cancer as high risk. Women at high risk may benefit from additional screening, which may include an annual screening mammogram alternating every six (6) months with a breast MRI, as appropriate. Recommend this patient consult with her preferred provider about a Genetic Counseling consultation to discuss formal risk assessment and a Medical Oncology consultation to discuss risk reduction strategies. Assistance, if requested, is available through [facility]'s High-Risk Breast Program at [phone] or by placing an [facility] referral to the High-[facility] Clinic. BIRADS: BIRADS - CATEGORY 1 Negative, no evidence of malignancy. Normal interval follow-up is recommended in 12 months. OVERALL ASSESSMENT - NEGATIVE A letter of notification will be sent to the patient regarding the results. The [place] [employer] recommends annual mammograms for women 40 years and older. Interpreted by: Momo Darby MD Signed by: Momo Darby MD 01/30/19 Final resultNormalFayette County Memorial Hospital w/reflex to FT4on [id number] Qn 13.09 m[IU]/LHigh0.30-5.00[facility] HospitalComment on above:Performed By: #### JACQUELINE JASON, CMPX #### [facility] [address] [place] [address] Serger: Isael Riojas MDThyroxine, Freeon [id number], Free0.87 ng/dLLow0.93-1.70[facility] HospitalComment on above:Performed By: #### CASIE LIP, CMPX #### [facility] [address] [place] [address] Serger: LYDIA SpragueR CHEST (2 VW)on [id number] CHEST (2 VW) EXAMINATION: TWO XRAY VIEWS OF THE CHEST 01/30/2019 9:44 am COMPARISON: January 04, 2019 HISTORY: ORDERING SYSTEM PROVIDED HISTORY: Pneumonia due to infectious organism, unspecified laterality, unspecified part of lung TECHNOLOGIST PROVIDED HISTORY: follow up pneumonia FINDINGS: The cardiomediastinal silhouette is stable. The lungs are grossly clear. There is no pleural effusion. There is no pneumothorax. There is no acute osseous abnormality. IMPRESSION: No acute cardiopulmonary disease. Interpreted by: Andrey Sin MD Signed by: Andrey Sin MD 01/30/19 Final resultNoHenry County Hospital Auto Differentialon 01-04-2019 Basophils (Bld) [#/Vol]0.05 10*3/[facility] [place], KYBasophils/100 WBC (Bld)1 %0 - 2 %[facility], KYDifferential TypeNOT REPORTEDBethesda North Hospital [place], [place] Eosinophils (Bld) [#/Vol]0.17 10*3/[facility] [place], KYEosinophils/100 WBC (Bld)3 %1 - 4 %[facility]- [place], KYErythrocyte distribution width (RBC) [Ratio] 12.9 %11.8 - 14.4 %[facility], KYHematocrit (Bld) [Volume fraction]43.1 % 36.3 - 47.1 %[facility], KYHemoglobin (Bld) [Mass/Vol]14.5 g/dL11.9 - 15.1 g/dLAshtabula County Medical Center, KYImmature granulocytes (Bld) [#/Vol]0 %0[facility] [place], KYImmature granulocytes (Bld) [#/Vol]10*3/[facility] [place], KYLymphocytes (Bld) [#/Vol]2.19 10*3/[facility] [place], KYLymphocytes/100 WBC (Bld)38 %24 - 43 %[facility], KYMCH (RBC) [Entitic mass]32.7 pg25.2 - 33.5 pgBethesda North Hospital [place], KYMCHC (RBC) [Mass/Vol]33.6 g/dL28.4 - 34.8 g/dLKettering Health [facility]- [place], [place] MCV (RBC) [Entitic vol]97.1 fL82.6 - 102.9 fLAshtabula County Medical Center, KYMonocytes (Bld) [#/Vol]0.37 10*3/[facility] [place], KYMonocytes/100 WBC (Bld)7 %3 - 12 %[facility], MANJINDERPlatelet mean volume (Bld) [Entitic vol]9.6 fL8.1 - 13.5 fLAshtabula County Medical Center, KYPlatelets (Bld) [#/Vol]NOT REPORTEDPasadena, KYPlatelets (Bld) [#/Vol]279 10*3/uLAshtabula County Medical Center, INRBC (Bld) [#/Vol]4.44 10*6/uL3.95 - 5.11 m/[facility], INRBC morphology finding Nom (Bld)NOT REPORTEDAshtabula [facility], INSegmented neutrophils/100 WBC (Bld)51 %36 - 65 %[facility], MANJINDERSegs Absolute2.92[facility], INWBC (Bld) [#/Vol]5.7 10*3/uLAshtabula County Medical Center, INWBC (Bld) [#/Vol]0.0 10*3/uL0.0 per 100 WBCAshtabula County Medical Center, KYWBC MorphologyNOT REPORTEDAshtabula County [facility] Center, INCBC with Diffon [id number]. Basophil0.05 k/uLNormal0.00-0.20[facility] HospitalComment on above:Performed By: #### CDP, LIP, CMPX #### [address] [place] [address] Serger: Lázaro Sprague.Imm.Granulocyte<0.46Rqqzux3.00-0.30[facility] HospitalComment on above:Performed By: #### CDP, LIP, CMPX #### [address] [place] [id number] Serger: Lázaro Sprague.Neutrophil (Seg)2.92 k/uLNormal1.50-8.10[facility] HospitalComment on above:Performed By: #### CDP, LIP, CMPX #### [address] [place] [id number] Serger: Isael Shine, MDBasophils/100 WBC (Bld)1 %Normal0-2[facility] HospitalComment on above:Performed By: #### CDP, LIP, CMPX #### [address] [place] [address] Serger: Isael Riojas MDEosinophils (Bld) [#/Vol]0.17 10*3/uLNormal 0.00-0.44MerMercy Health [facility] HospitalComment on above:Performed By: #### CDP, LIP, CMPX #### [address] [place] [address] Serger: JESSE Spragueosinophils/100 WBC (Bld)3 %Normal1-4[facility] HospitalComment on above:Performed By: #### CDP, LIP, CMPX #### [address] [place] [address] Serger: Isael Riojas MDErythrocyte distribution width (RBC) [Ratio]12.9 %Zjowzg95.8-14.4[facility] HospitalComment on above:Performed By: #### CDP, LIP, CMPX #### [address] [place] [address] Serger: Isael Riojas MDHematocrit (Bld) [Volume fraction]43.1 %Normal 36.3-47.1[facility] HospitalComment on above:Performed By: #### CDP, LIP, CMPX #### [address] [place] [address] Serger: Isael Riojas MDHemoglobin (Bld) [Mass/Vol]14.5 g/dLNormal 11.9-15.1[facility] HospitalComment on above:Performed By: #### CDP, LIP, CMPX #### [address] [place], [facility]83 Serger: Isael Riojas MDImmature granulocytes (Bld) [#/Vol]0 %Normal0 [facility] HospitalComment on above:Performed By: #### CDP, LIP, CMPX #### [address] [place], [place] [id number] Serger: Akbar Spraguemphocytes (Bld) [#/Vol]2.19 10*3/uLNormal 1.10-3.70[facility] HospitalComment on above:Performed By: #### CDP, LIP, CMPX #### [address] [place] [address] Serger: Alejandrina Spraguehocytes/100 WBC (Bld)38 %Ceaiby06-55Ioihs Tiffin HospitalComment on above:Performed By: #### CDP, LIP, CMPX #### [address] [place], [facility]83 Serger: KATHY Sprague (RBC) [Entitic mass]32.7 clHleuyk98.2-33.5 [facility] HospitalComment on above:Performed By: #### CDP, LIP, CMPX #### [address] [place] [address] Serger: KATHY SpragueC (RBC) [Mass/Vol]33.6 g/yISdoawf22.4-34.8 [facility] HospitalComment on above:Performed By: #### CDP, LIP, CMPX #### [address] [place], [place] [id number] Serger: ROHIT Sprague (RBC) [Entitic vol]97.1 eWBvcpqv02.6-102.9 [facility] HospitalComment on above:Performed By: #### CDP, LIP, CMPX #### [address] [place], [facility]83 Serger: BETZY Spragueonocytes (Bld) [#/Vol]0.37 10*3/uLNormal 0.10-1.20[facility] HospitalComment on above:Performed By: #### CDP, LIP, CMPX #### [address] [place], [facility]83 Serger: BETZY Spragueonocytes/100 WBC (Bld)7 %Normal3-12[facility] HospitalComment on above:Performed By: #### CDP, LIP, CMPX #### [address] [place] [address] Serger: Dung Sprague (Seg)51 %Ohfunq99-93Yylbb [facility]iff[facility] HospitalComment on above:Performed By: #### CDP, LIP, CMPX #### [address] [place], [place] [address] Serger: TUTU Sprague Automated0.0 per 100 WBCNormal0.0[facility] HospitalComment on above:Performed By: #### CDP, LIP, CMPX #### [address] [place] [address] Serger: Yesenia Sprague mean volume (Bld) [Entitic vol]9.6 fL Normal8.1-13.5[facility] North HospitalComment on above:Performed By: #### CDP, LIP, CMPX #### [address] [place], [facility]83 Serger: SHERI Spraguelatelets (Bld) [#/Vol]279 10*3/dWKfarzy669-930 [facility] HospitalComment on above:Performed By: #### CDP, LIP, CMPX #### [address] [place], [facility]83 Serger: HERB Sprague (Bld) [#/Vol]4.44 10*6/uLNormal3.95-5.11[facility] HospitalComment on above:Performed By: #### CDP, LIP, CMPX #### [facility] [address] [place] [address] Serger: OCRY Sprague (Bld) [#/Vol]5.7 10*3/uLNormal3.5-11.3[facility] HospitalComment on above:Performed By: #### CDP, LIP, CMPX #### [facility] [address] [place] [address] Serger: Cora Sprague PerformedNOT REPORTEDNormalMercy Melbourne HospitalComment on above:Performed By: #### CDP, LIP, CMPX #### [address] [place] [address] Serger: Laura Spraguetelets (d) [#/Vol]NOT REPORTEDNormalMercy Melbourne HospitalComment on above:Performed By: #### CDP, LIP, CMPX #### [facility] [address] [place] [address] Serger: HERB Sprague morphology finding Nom (Bld)NOT REPORTED NormalMercy Melbourne HospitalComment on above:Performed By: #### CDP, LIP, CMPX #### [facility] [address] [place] [address] Serger: CORY Sprague MorphologyNOT REPORTEDNormalMercy Melbourne HospitalComment on above:Performed By: #### CDP, LIP, CMPX #### [facility] [address] [place], [place] [address] Serger: CLARE Spragueomp Metabolic Pr/rfx MGon [id number] [Catalytic activity/Vol]29 U/LNormal<32[facility] HospitalComment on above: Performed By: #### CDP, LIP, CMPX #### [facility] [address] [place], [place] [address] Serger: Isael Riojas MD(cont.)[facility] HospitalComment on above:Result Comment: Average GFR for 50-59 years old: 93 mL/min/1.73sq m Chronic Kidney Disease: <60 mL/min/1.73sq m Kidney failure: <15 mL/min/1.73sq m eGFR calculated using average adult body mass. Additional eGFR calculator available at: http://www.[employer]/multiple_crcl_2012.htmPerformed By: #### CDP, LIP, CMPX #### [address] [place], [facility]83 Serger: Isael Riojas MDAlbumin [Mass/Vol]4.4 g/dLNormal3.5-5.2MGenesis HospitalComment on above:Performed By: #### CDP, LIP, CMPX #### [address] [place], [facility]83 Serger: Isael Riojas MDAlbumin/Globulin [Mass ratio]1.3 {ratio}Normal 1.0-2.5[facility] HospitalComment on above:Performed By: #### CDP, LIP, CMPX #### [address] [place], [facility]83 Serger: Karma Spraguekaline Phos80 U/DMwjyof93-611VbohaBethesda North HospitalComment on above:Performed By: #### CDP, LIP, CMPX #### [address] [place] [address] Serger: Isael Riojas MDALT [Catalytic activity/Vol]22 U/LNormal5-33[facility] HospitalComment on above:Performed By: #### CDP, LIP, CMPX #### [facility] [address] [place] [address] Serger: Isael Riojas MDAnion gap [Moles/Vol]14 mmol/LNormal9-17[facility] HospitalComment on above:Performed By: #### CDP, LIP, CMPX #### [address] [place], [place] [id number] Serger: Isael Riojas MDBilirubin Ql (U)0.25 mg/dLLow0.3-1.2MercMemorial Health System HospitalComment on above:Performed By: #### CDP, LIP, CMPX #### [address] [place] [address] Serger: Isael Riojas MDBUN/CRE Koclb36Xseesx7-87Wnjoz [facility] Comment on above:Performed By: #### CDP, LIP, CMPX #### [address] [place] [address] Serger: CLARE Spraguealcium [Mass/Vol]9.3 mg/dLNormal8.6-10.4[facility] HospitalComment on above:Performed By: #### CDP, LIP, CMPX #### [address] [place] [address] Serger: CLARE Spraguehloride [Moles/Vol]97 mmol/NFij82-049Wnagl [facility]in HospitalComment on above:Performed By: #### CDP, LIP, CMPX #### [address] [place] [address] Serger: CLARE SpragueO2 [Moles/Vol]24 mmol/JGmeguz87-93Lbiup [facility] HospitalComment on above:Performed By: #### CDP, LIP, CMPX #### [address] [place], [place] [address] Serger: CLARE Spraguereatinine [Mass/Vol]0.59 mg/dLNormal0.50-0.90 [facility] HospitalComment on above:Performed By: #### CDP, LIP, CMPX #### [address] [place] [address] Serger: Isael Riojas MDGFR, Amer>60Normal>60[facility] Comment on above:Performed By: #### CDP, LIP, CMPX #### [address] [place] [address] Serger: CASI Sprague,non Amer>60Normal>60[facility] HospitalComment on above:Performed By: #### CDP, LIP, CMPX #### [address] [place], [place] [address] Serger: Isael Riojas MDGlucose [Mass/Vol]102 mg/dOAncf68-29Vudjd Melbourne HospitalComment on above:Performed By: #### CDP, LIP, CMPX #### [address] [place], [place] [address]683 Serger: Isael Riojas MDPotassium [Moles/Vol]4.9 mmol/LNormal3.7-5.3[facility] HospitalComment on above:Performed By: #### CDP, LIP, CMPX #### [address] [place] [address] Serger: Isael Riojas, MDProtein [Mass/Vol]7.9 g/dLNormal6.4-8.3[facility] HospitalComment on above:Performed By: #### CDP, LIP, CMPX #### [address] [place] [address] Serger: Isael Riojas MDSodium [Moles/Vol]135 mmol/YGuxmjf152-852Aotfg Melbourne HospitalComment on above:Performed By: #### CDP, LIP, CMPX #### [facility] [address] [place] [address] Serger: Isael Riojas [facility] OKLAHOMA CITYtaging:[facility] HospitalComment on above:Result Comment: Stage 1: Some kidney damage normal GFR Stage 2: Mild kidney damage GFR 60-89 Stage 3: Moderate kidney damage GFR 30-59 Stage 4: Severe kidney damage GFR 15-29 Stage 5: Severe kidney damage GFR <15 ESRD - chronic treatment by dialysis or transplantPerformed By: #### CDP, LIP, CMPX #### [facility] [address] [place] [address] Serger: Isael Riojas MDUrea nitrogen [Mass/Vol]12 mg/dLNormal6-20[facility] HospitalComment on above:Performed By: #### CDP, LIP, CMPX #### [facility] [address] [place] [address] Serger: Isael Riojas [facility] STROUDomprehensive Metabolic Panel w/ Reflex to MGon [id number] [Mass/Vol]4.4 g/dL3.5 - 5.2 g/dLAshtabula County Medical Center, [place] Albumin/Globulin [Mass ratio]1.3 {ratio}[facility], KYALP [Catalytic activity/Vol]80 U/L35 - 104 U/[facility], KYALT [Catalytic activity/Vol] 22 U/L5 - 33 U/[facility], KYAnion gap [Moles/Vol]14 mmol/L9 - 17 mmol/L [facility], KYAST [Catalytic activity/Vol]29 U/L<32[facility], [place] Bilirubin Ql (U)0.25 mg/dLLow0.3 - 1.2 mg/dLAshtabula County Medical Center, KYBun/Cre Ratio20 [facility], KYCalcium [Mass/Vol]9.3 mg/dL8.6 - 10.4 mg/dLAshtabula County Medical Center, KYChloride [Moles/Vol]97 mmol/LLow98 - 107 mmol/LMVan Wert County Hospital, KYCO2 [Moles/Vol]24 mmol/L20 - 31 mmol/[facility], KYCreatinine [Mass/Vol]0.59 mg/dL0.5 - 0.9 mg/dLAshtabula County Medical Center, KYGFR >60>60 mL/minAshtabula County Medical Center, KYGFR Non->60>60 mL/minAshtabula County Medical Center, KYGlucose [Mass/Vol]102 mg/xAQehp43 - 99 mg/dLAshtabula County Medical Center, KYInterpretation and review of laboratory resultsAbnormalAshtabula County Medical Center, KYPotassium [Moles/Vol]4.9 mmol/L3.7 - 5.3 mmol/LMVan Wert County Hospital, KYProtein [Mass/Vol]7.9 g/dL6.4 - 8.3 g/dLAshtabula County Medical Center, KYSodium [Moles/Vol]135 mmol/L135 - 144 mmol/[facility], KYUrea nitrogen [Mass/Vol]12 mg/dL6 - 20 mg/dLAshtabula County Medical Center, KYD- Dimer Teston 56-37-2995I-Dimer Test0.32 mg/L FEUNormal0.19-0.50[facility] HospitalComment on above:Result Comment: Elevated levels of D dimer can be seen in any state of coagulation activation including DVT, PE, arterial thrombosis, DIC, inflamatory disease, trauma, malignancy, sepsis, infection, hematoma, liver disease, post surgical state, , atherosclerosis, old age. When combined with a low clinical probability, a D dimer value of <0.50 mg/L is considered negative for DVT and PE (negative predictive value of 98%).Performed By: #### JOANA ROSARIO #### [facility] [address] [place] [address] Serger: Isael Riojas, MDD-Dimer, Quantitativeon 22-10-3371S-Dimer, Quant 0.32[facility], KYComment on above: Elevated levels of D dimer can be seen in any state of coagulation activation including DVT, PE, arterial thrombosis, DIC, inflamatory disease, trauma, malignancy, sepsis, infection, hematoma, liver disease, post surgical state, , atherosclerosis, old age. When combined with a low clinical probability, a D dimer value of <0.50 mg/L is considered negative for DVT and PE (negative predictive value of 98%). Lipaseon 51-67-0353Jcabet [Catalytic activity/Vol]41 U/TCdogui53-19NksppBethesda North HospitalComment on above:Performed By: #### CDP, LIP, CMPX #### [facility] [address] [place] [address] Serger: Isael Riojas MDLipase [Catalytic activity/Vol]41 U/L13 - 60 U/L [facility], INMetabolic Panelon 84-88-4630LFS/1.73 sq M predicted among non-blacks MDRD (S/P/Bld) [Vol rate/Area][facility], INComment on above: Average GFR for 50-59 years old: 93 mL/min/1.73sq m Chronic Kidney Disease: <60 mL/min/1.73sq m Kidney failure: <15 mL/min/1.73sq m eGFR calculated using average adult body mass. Additional eGFR calculator available at: http://www.[employer]/multiple_crcl_2012.htm Stage 1: Some kidney damage normal GFR Stage 2: Mild kidney damage GFR 60-89 Stage 3: Moderate kidney damage GFR 30-59 Stage 4: Severe kidney damage GFR 15-29 Stage 5: Severe kidney damage GFR <15 ESRD - chronic treatment by dialysis or transplant Microscopic Urinalysison 03-37-2041Dbvjzhpuw, UANOT REPORTEDPeoples Hospital, KYBacteria, UATRACEAbnormMadison Health, KYCasts UANOT REPORTED/LPF [facility], KYCrystals UANOT REPORTEDNone /HPFAshtabula County Medical Center, [place] Epithelial Cells UA5 TO 10[facility], KYInterpretation and review of laboratory resultsAbnormSumma Health [facility], KYMucus, UANOT REPORTEDNonLake County [facility], KYOther Observations UANOT REPORTEDNOT REQ.[facility], KYRBC (U) [#/Vol][facility] [place], KYRenal Epithelial, UrineNOT REPORTED0 /HPF [facility], KYTrichomonas, UANOT REPORTEDNoneMeWestern Reserve Hospital, KYWBC, UA2 TO 5[facility], KYYeast, UANOT REPORTEDNoneMeWestern Reserve Hospital, [place]-[facility], KYTroponinon [id number] I.cardiac [Mass/Vol]ng/mLNormal<0.03 [facility] HospitalComment on above:Result Comment: Troponin T results cannot be compared to Troponin-I results.Performed By: #### JOANA ROSARIO #### [facility] [address] [place] [address] Serger: Nadine Sprague I.cardiac [Mass/Vol][facility] HospitalComment on above:Result Comment: Reference Range: <0.03 Within reference range. 0.03-0.09 Possible myocardial damage. Repeat at appropriate intervals to rule out chronic elevation. >= 0.10 Indicative of myocardial damage. Patients with high levels of Biotin oral intake (i.e >5mg/day) may have falsely decreased Troponin T levels. Samples collected within 8 hours of biotin intake may require additional information for diagnosis.Performed By: #### JOANA ROSARIO #### [facility] [address] [place], [place] [address] Serger: Nadine Sprague I.cardiac [Mass/Vol]NOT REPORTEDNormal 0-14[facility] HospitalComment on above:Performed By: #### TROPSANJEEV FamE #### [facility] [address] [place], [place] [address] Serger: Nadine Sprague I.cardiac [Mass/Vol][facility], [place] Comment on above:Reference Range: <0.03 Within reference range. 0.03-0.09 Possible myocardial damage. Repeat at appropriate intervals to rule out chronic elevation. >= 0.10 Indicative of myocardial damage. Patients with high levels of Biotin oral intake (i.e >5mg/day) may have falsely decreased Troponin T levels. Samples collected within 8 hours of biotin intake may require additional information for diagnosis. Troponin T.cardiac [Mass/Vol]ug/L<0.03 ng/mLPasadena, KYComment on above:Troponin T results cannot be compared to Troponin-I results.Troponin, High SensitivityNOT REPORTED0 - 14 ng/LMEly, KYUA w/Reflex Cultureon [id number] Acid,UrNegativeNormalNEGMerSt. Vincent's Medical CenterComment on above:Performed By: #### UAX, UMICAO #### [facility] [address] [place], [facility]83 Serger: Isael Riojas MDBilirubin, SemiQt,UrNegativeNormalNEGMerSt. Vincent's Medical CenterComment on above:Performed By: #### UAX, UMICAO #### [facility] [address] [place], [facility]83 Serger: CLARE Spragueolor (U)YELLOWNormalYAvita Health System Galion Hospital Comment on above:Performed By: #### UAX, UMICAO #### [address] [place], [facility]83 Serger: Isael Riojas MDGlucose Ql (U)NegativeNormalNEGBethesda North HospitalComment on above:Performed By: #### UAX, UMICAO #### [facility] [address] [place], [facility]83 Serger: Isael Riojas MDHemoglobin, UrNegativeNormalNEGBethesda North HospitalComment on above:Performed By: #### UAX, UMICAO #### [facility] [address] [place], [facility]83 Serger: Isael Riojas MDLeukocyte esterase Test strip Ql (U)Negative NormalNEGBethesda North HospitalComment on above:Performed By: #### UAX, UMICAO #### [facility] [address] [place], [place] [address] Serger: Aminta Sprague,UrNegativeNormAvita Health System [facility] Comment on above:Performed By: #### UAX, UMICAO #### [facility] [address] [place], [place] [address] Serger: Sheri SpragueH (U)7.5 [pH]Normal5.0-9.0[facility] Comment on above:Performed By: #### UAX, UMICAO #### [facility] [address] [place], [place] [address] Serger: SHERI Spraguerotein Ql (U)NegativeNormalMemorial Health System Selby General HospitalComment on above:Performed By: #### UAX, UMICAO #### [facility] [address] [place], [place] [address] Serger: EVA Spraguepecific gravity (U) [Rel density]1.010Normal 1.010-1.020[facility] HospitalComment on above:Performed By: #### UAX, UMICAO #### [facility] [address] [place], [place] [address] Serger: TYRON SpragueurbidityCLEARNormalCLEARBethesda North Hospital Comment on above:Performed By: #### UAX, UMICAO #### [facility] [address] [place], [place] [address] Serger: Toni Sprague,UrNormalNormalLakeHealth Beachwood Medical CenterComment on above:Performed By: #### UAX, UMICAO #### [facility] [address] [place], [place] [address] Serger: Sadia SpragueNOT REPORTEDGre[facility] Hospital Comment on above:Performed By: #### UAX, UMICAO #### [facility] [address] [place] [address] Serger: Isael Riojas MDUrinalysis Reflex to Cultureon 01-04-2019 Bilirubin UrineNegativeNEGATIVEMercy Health- [place], KYColor, UAYELLOWYELLOWMercy Health- [place], KYGlucose, UrNegativeNEGATIVEMercy Health- [place], KYKetones Ql (U) NegativeNEGATIVEMercy Health- [place], KYLeukocyte esterase Test strip Ql (U)Negative NEGATIVEMercy Health- [place], KYNitrite, UrineNegativeNEGATIVEMercy Health- [place], [place] pH, UA7.5[facility]- [place], KYProtein (U) [Mass/Vol]NegativeNEGATIVEMercy Health- [place], KYSpecific [place], UA1.010[facility]- [place], KYTurbidity UACLEARCLEARMercy Health- [place], KYUrinalysis CommentsNOT REPORTEDMercy Health- [place], KYUrine Hgb NegativeNEGATIVEMercy Health- [place], KYUrobilinogen, UrineNormalNormalMercy Health- [place], KYUrinalysis,Microon 01-04-2019-----NormalMercy Melbourne HospitalComment on above:Performed By: #### UAX, UMICAO #### [facility] [address] [place] [address] [place] [address] Serger: Isael Riojas MDBacteria LM.HPF (Urine sed) [#/Area]TRACEAbnormal NONEMercy Melbourne HospitalComment on above:Performed By: #### UAX, UMICAO #### [facility] [address] [place] [address] Serger: Isael Riojas MDEpithelial cells LM.HPF (Urine sed) [#/Area]5 TO 13Xzfdio4-20Cylgf [facility] HospitalComment on above:Performed By: #### UAX, UMICAO #### [facility] [address] [place] [address] Serger: GINNA SpragueBC (U) [#/Vol]NoneNormal0-2[facility] Comment on above:Performed By: #### UAX, UMICAO #### [address] [place] [address] Serger: Isael Riojas MDWBC (U) [#/Vol]2 TO 1Tmxdzn1-6Lqksm Melbourne HospitalComment on above:Performed By: #### UAX, UMICAO #### [address] [place], [place] [address] Serger: Bernadette Sprague sediment LM Ql (Urine sed)NOT REPORTED NormalNONEMey Melbourne HospitalComment on above:Performed By: #### UAX, UMICAO #### [address] [place] [address] Serger: Beatriz Sprague LM.LPF (Urine sed) [#/Area]NOT REPORTED NormalMercy Melbourne HospitalComment on above:Performed By: #### UAX, UMICAO #### [address] [place] [address] Serger: Allison Sprague LM Nom (Urine sed)NOT REPORTEDNormalNONE [facility] HospitalComment on above:Performed By: #### UAX, UMICAO #### [address] [place], [place] [address] Serger: Isael Riojas MDEpithelial, RenalNOT URMPKRQKNgrtoz0Pzchf Melbourne HospitalComment on above:Performed By: #### UAX, UMICAO #### [address] [place] [address] Serger: BEZTY Spragueucus StrandsNOT REPORTEDNormalNONEMercy Melbourne HospitalComment on above:Performed By: #### UAX, UMICAO #### [address] [place] [address] Serger: Isael Riojas MDOther ObservationsNOT REPORTEDNormalNREQPeoples Hospital HospitalComment on above:Performed By: #### UAX, UMICAO #### [facility] [address] [place] [address] [place] [address] Serger: Isael Riojas MDTrichomonasNOT REPORTEDNormalNONEMeChoctaw Health Center HospitalComment on above:Performed By: #### UAX, UMICAO #### [facility] [address] [place] [address] Serger: Isael Riojas MDYeast LM Ql (Urine sed)NOT REPORTEDNormalNONE [facility] HospitalComment on above:Performed By: #### UAX, UMICAO #### [address] [place] [address] Serger: Isael Riojas MDXR CHEST (2 VW)on 21-37-5286PT CHEST (2 VW) EXAMINATION: TWO XRAY VIEWS OF THE CHEST 01/04/2019 8:09 am COMPARISON: None HISTORY: ORDERING SYSTEM PROVIDED HISTORY: cough, CP TECHNOLOGIST PROVIDED HISTORY: cough, CP Initial evaluation. FINDINGS: Slight eventration of the anterior right hemidiaphragm. Suggestion of minimal airspace opacity in the posterior base of at least one of the lower lobes. Otherwise clear lungs. No definite findings of pneumothorax or pleural effusion. Normal mediastinal, hilar, and cardiac contours. No obvious acute fracture. Included joints maintain anatomic alignment. IMPRESSION: Minimal airspace opacity in the posterior base of at least one lower lobe, favored to represent atelectasis or scarring over pneumonia or aspiration. Interpreted by: Momo Darby MD Signed by: Momo Darby MD 01/04/19 Final resultNormalBethesda North HospitalXR CHEST STANDARD (2 VW)on 01-04-2019 EXAMINATION: TWO XRAY VIEWS OF THE CHEST 01/04/2019 8:09 am COMPARISON: None HISTORY: ORDERING SYSTEM PROVIDED HISTORY: cough, CP TECHNOLOGIST PROVIDED HISTORY: cough, CP Initial evaluation. FINDINGS:Slight eventration of the anterior right hemidiaphragm. Suggestion of minimal airspace opacity in the posterior base of at least one of the lower lobes. Otherwise clear lungs. No definite findings of pneumothorax or pleural effusion. Normal mediastinal, hilar, and cardiac contours. No obvious acute fracture. Included joints maintain anatomic alignment.[facility] MANJINDERMinimal airspace opacity in the posterior base of at least one lower lobe, favored to represent atelectasis or scarring over pneumonia or aspiration.[facility] Medical CenterMiranda Mhpn Incoming Radiant Results From aiHit - 01/04/2019 8:22 AM EDT EXAMINATION: TWO XRAY VIEWS OF THE CHEST 01/04/2019 8:09 am COMPARISON: None HISTORY: ORDERING SYSTEM PROVIDED HISTORY: cough, CP TECHNOLOGIST PROVIDED HISTORY: cough, CP Initial evaluation. FINDINGS: Slight eventration of the anterior right hemidiaphragm. Suggestion of minimal airspace opacity in the posterior base of at least one of the lower lobes. Otherwise clear lungs. No definite findings of pneumothorax or pleural effusion. Normal mediastinal, hilar, and cardiac contours. No obvious acute fracture. Included joints maintain anatomic alignment. IMPRESSION: Minimal airspace opacity in the posterior base of at least one lower lobe, favored to represent atelectasis or scarring over pneumonia or aspiration. [facility] MANJINDER Vital Signs Date TimeVital SignValuePerforming UynmkyludMbazylne50-77-6267 10:37-0500Body .1 Alina Loredo PLANT NURS[employer] WORKER-C Work Phone: [phone] [place], [place] 4610711-11-2025 10:37-0500 Body mass index (BMI) [Ratio]34.9 kg/m2Alexia Loredo PLANT NURS[employer] WORKER-C Work Phone: [phone] [place], [place] 5472911-11-2025 10:37-0500 Body dpiylzktodn02.5 [degF]Alexia Gertrude PLANT NURSERY WORKER-C Work Phone: [phone]-[facility]11-11-2025 10:37-0500 Body wszqec07.31 kgAlexia Loredo PLANT NURSERY WORKER-C Work Phone: [phone]-[facility]11-11-2025 10:37-0500 Diastolic blood lpcocmqd19 mm[Hg]Alexia Loredo PLANT NURS[employer] WORKER-C Work Phone: [facility]11-11-2025 10:37-0500 Heart rate72 /Yimi Hiltonholz PLANT NURSERY WORKER-C Work Phone: [facility]11-11-2025 10:37-0500 Respiratory rate18 /minAlexia Hiltonholz PLANT NURSERY WORKER-C Work Phone: [facility]11-11-2025 10:37-0500 SaO2% (BldA) [Mass fraction]98 %Alexia Palomoz PL[employer] NURS[employer] WORKER-C Work Phone: [facility]11-11-2025 10:37-0500 Systolic blood szoexvqe840 mm[Hg]Alexia Palomoz PLANT NURSERY WORKER-C Work Phone: [facility]10-16-2019 15:00-0400 BP Fnizxdhom81 mm[Hg][facility], MW46-55-5100 15:00-0400BP Odvnpaaf957 mm[Hg][facility], KH04-11-3669 15:00-0400Pulse (Heart Rate)74 /[facility], NC25-73-3071 15:00-0400Pulse Tkznpsfb45 %[facility], VR08-03-9630 15:00-0400Respiratory Rate16 /[facility], SS08-52-0899 14:52-0400Body Urwhegernnm72 [degF][facility], CL63-01-0312 13:37-0400BMI (Body Mass Index)32.28 kg/g5VfcrqcProvidence Hospital, UH25-44-7381 13:37-0400Body jlhfty50.72 kgProvidence Hospital, IT95-86-5284 13:37-6885Xtfuvi895.6 [facility], HK21-50-7573 09:05-0400BP Fpbgrzujj22 mm[Hg]Farhat WhitakerOhio Valley Surgical Hospital, VI82-37-9743 09:05-0400BP Nqskeucc873 mm[Hg]Farhat JohnsonAshtabula [facility], KQ83-68-5512 09:05-0400Pulse (Heart Rate)64 /minFarhat [facility], DY57-14-6801 09:05-0400Pulse Rekqyhfo59 %Farhat [facility], CB42-51-8727 09:05-0400Respiratory Rate 16 /minFarhat [facility], FR63-13-9338 07:35-0400Body Oumsgagmwhc06.1 [degF]Farhat [facility], AK36-30-7301 07:35-0400Body .18 kg Farhat JohnsonAshtabula County Medical Center, [place] Encounters Encounter DateEncounter TypeCare ProviderFacilityStart: 03-18-2025 End: 23-35-0142wbnlztxxyeAkbo Jairo Loredo PLANT NURSERY WORKER-C Work Phone: -[facility] ClydeStart: 03-18-2025 End: 69-72-2723Bzgpjtb encounter procedureLisa Jairo Torreshjack PLANT NURSERY WORKER-C-[facility] Work Phone: Start: 95-20-7085Hxsiumh encounter procedureLisa Gertrude PLANT NURSERY WORKER-C [facility] Phone: [facility]: 60-93-6518Hqh- patient / Non-visitLisa Jairo Torreshholaudra PLANT NURSERY WORKER-C-[facility] Work Phone: Start: 05-25-2022 End: 84-76-1076kogkcajitvWL MICHAEL E GRILLISFacility:J9Qxxrd: 05-23-2022 End: 49-78-6608zdwloywfsgCH MICHAEL E GRILLISFacility:E8Yjadk: 03-28-2022 End: 02-75-4389Euabsmrbmb and management of inpatientDR MOMO GOLDMAN Facility:Y5Snacf: 11-16-2021 End: 98-99-7713gouaelksbeOH Maurice WestFacility:Y1Mkmuf: 11-04-2021 End: 59-98-0448pdemnimmvpAQ Maurice WestFacility:K5Qyzph: 10-19-2021 End: 20-68-0112eotdluakohRMU ALEXIA HILTONJACKFacility:G8Rqpyf: 10-11-2021 End: 32-17-4106ldhrbkftxdBUB ALEXIA CELINEBIGGFacility:M7Ffmup: 65-97-9423Xynbmkbvc for general adult medical examination without abnormal findingsCNP ALEXIA CELINEHarshaJACK [facility] HospitalStart: 09-29-2021 End: 21-68-4852cjrtrbkrbhZXS ALEXIA CELINEBIGGFacility:P7Yqlbd: 09-29-2021 End: 02-34-4547Lqqieoklv for general adult medical examination without abnormal findingsCNP ALEXIA CELINEBIGGFacility:Z9Veinx: 02-20-2019 End: 99-93-8022Ylvbezd encounter procedureSCINDY [facility] [place] Start: 02-20-2019 End: 17-50-4187Mnmaujqgdk hospital visit by Lilliam Gould Work Phone: mthz ORStart: 01-30-2019 End: 60-43-2752Nvlbkdq encounter [facility] Start: 01-30-2019 End: 07-37-8248Csvedhg encounter [facility] Start: 01-04-2019 End: 45-22-7856Yffdtyllx department patient visitSMADDY [facility] HospitalStart: 01-04-2019 End: 67-65-1479Wakrtxuwr department patient visitFarhat Johnson Work Phone: [facility] EDComment on above:Pneumonia due to organism (Primary Dx) Procedures DateProcedureProcedure DetailPerforming ClinicianStart: 11-26-7704TWSEUDKQD PATIENTSHAWN DEATSStart: 33-99-9637SJQZVE PERIPHERAL IVSHRELLN DEATSStart: 23-07-6318Kgixueyzz mammography bi 2-view breast inc cadCOAL MOUNTAINN DEATSStart: 51-37-7132Bwubo of free thyroxineCOAL MOUNTAINGail DEATSStart: 73-35-2047Mssaj of thyroid stimulating hormone tshSHAWN DEATSStart: 69-11-8198Pvdvb panelSHAWN DEATSStart: 94-45-1407Yzwwkwarrf exam chest 2 viewsSHAWN DEATSStart: 79-96-0170Yqbhnfcbej microscopic onlySHAWN DEATSStart: 08-08-4258Oymiv dip stick/tablet rgnt auto w/o microscopySHAWN DEATSStart: 19-88-6523Wihdvyjhpk exam chest 2 viewsAWN DEATS Start: 73-71-4862Dhyhp of lipaseSHAWN DEATSStart: 89-90-5293Enbyj of troponin quantitativeSHAWN DEATSStart: 64-12-2482Fcrvt count complete auto&auto difrntl wbcSHAWN DEATSStart: 06-12-2040Qjuhhv dgradj products d-dimer quantitativeSHAWN DEATSStart: 83-65-6914Uhe routine ecg w/least 12 lds w/i&rSHAWN DEATSStart: 94-98-6476Vqhxnnwxfk microscopic onlyTyler Sandy Work Phone: Start: 65-40-5066Kssdj dip stick/tablet rgnt auto w/o microscopyTyler Sandy Work Phone: Start: 17-91-9332Ersjihqaso exam chest 2 viewsTyler Sandy Work Phone: Start: 10-90-9492Sbyku of lipaseTyler Sandy Work Phone: Start: 49-86-6671Gbfcx of troponin quantitativeTyler Sandy Work Phone: Start: 31-22-2802Vzspw count complete auto&auto difrntl wbcTyler Sandy Work Phone: Start: 79-28-3821Uhfkse dgradj products d-dimer quantitativeTyler Sandy Work Phone: Start: 73-28-6033Yfe routine ecg w/least 12 lds w/i&r Farhat Sandy Work Phone: Plan of Treatment DateCare ActivityDetailAuthorStart: 70-19-9841Gpdsv screenLipid screenAshtabula County Medical Center, KYStart: 11-78-0580Vlzaik cancer screenBreast cancer screenAshtabula County Medical Center, KYStart: 01-66-1013Hnljs Cancer Screen FIT/FOBTColon Cancer Screen FIT/FOBTAshtabula County Medical Center, KYStart: 42-47-7140FJE testingTSH testingAshtabula County Medical Center, KYStart: 63-68-9290Bdazeiwd cancer screenCervical cancer screenAshtabula County Medical Center, MANJINDERComment on above:Postponed from 09/27/1980 (Patient Refused)Start: 14-25-0687RMvK/Tdap/Td vaccine (1 - Tdap)DTaP/Tdap/Td vaccine (1 - Tdap)[facility] INComment on above:Postponed from 09/27/1978 (Patient Refused)Start: 08-90-2181Qhuidyxeq C screenHepatitis C [facility], MANJINDERComment on above:Postponed from 1959 (Patient Refused)Start: 19-59-4936RKH screenHIV [facility], INComment on above:Postponed from 09/27/1974 (Patient Refused)Start: 89-59-0857Ufejdsky Vaccine (1 of 2)Shingles Vaccine (1 of 2)[facility], INComment on above:Postponed from 09/27/2009 (Patient Refused) Start: 30-35-1493Fxqoyidhr vaccinationFlu vaccine (#1)[facility] CenterMANJINDER Comment on above:Postponed from 01/06/2019 (Unavailable)Start: 02-28-2019 End: 24-73-8985Zbvgym Visit02/28/2019 Office Visit Primary Care Torrey Snow APRN - [employer] [address] [place] [address] [phone] [facility] CenterfinStart: 01-30-2019 End: 18-23-3567Meamkccaxgr62/25/[address] [facility] Start: 01-17-2019 End: 49-51-6089Ukppbm Visit01/17/2019 Office Visit Primary Care Torrey Snow APRN - [employer] [address] [place] [address] [phone] [facility]art: 09-34-1156Qpgheuhuu vaccinationFlu vaccine (#1) [facility]: 85-12-1788Nwwjiu cancer screenBreast cancer screen [facility]: 56-09-1797Ifdrb cancer screen colonoscopyColon cancer screen colonoscopyHenry County Hospital: 13-60-2608Fqifdfpj Vaccine (1 of 2)Shingles Vaccine (1 of 2)[facility]: 51-87-6166Vsbljllt screen Diabetes screenHenry County Hospital: 22-69-1182Izyqw screenLipid screen [facility]: 84-83-0408Gxvphnds cancer screenCervical cancer screenHenry County Hospital: 07-52-2781UQeW/Tdap/Td vaccine (1 - Tdap) DTaP/Tdap/Td vaccine (1 - Tdap)[facility]: 49-06-5996UJC screen HIV screenHenry County Hospital: 08-92-4777Zswujoptyize 0-64 years Vaccine (1 of 1 - PPSV23)Pneumococcal 0-64 years Vaccine (1 of 1 - PPSV23)[facility]: 89-54-2394Vydlslsli C screenHepatitis C [place], [place] Comprehensive metabolic 2000 panel - Serum or PlasmaToledo HospitalEKG 12 LeadEKG 12 Lead ECG STAT 01/04/2019 7:38 AM EDTMEly, [place] MG Breast - bilateral ScreeningToledo HospitalXR Knee - left 3 ViewsBaptist Health [facility] Payers DatePayer CategoryPayerPolicy [id number] [employer] WH[employer] - EXCHANGE xxxxxxxxxxxx 2018-Present [phone] [address] [address]brkjqphsujkk [id number] [id number] 2.16.840.1.437940.[id number] 2.16.840.1.604572.3.57[id number] 2.16.840.1.426893.3.57[id number] 2.16.840.1.095807.3.57[id number] 2..840.1.485568.3.57[id number] 2.16.840.1.272359.3.57[id number] 2.840.1.485401.3.57[id number] 2.16.840.1.092006.3.57[id number] 2.16.840.1.577064.3.57[id number] 2..840.1.925323.3.57[id number] 2.16840.1.162930.3.57[id number] 2.16840.1.180635.3.57[id number] 2.16840.1.540832.3.57[id number] 2.16840.1.358807.3.579.2.593 [id number] [id number] Social History DateTypeDetailFacilityStart: 01-04-2019 End: 82-00-8791Otfanhb smoking status NHISFormer smokerBethesda North Hospital [place], [place] History of tobacco useCigarette SmokerAshtabula County Medical Center, KYSex Assigned At Not on fileAshtabula County Medical Center, KYStart: 91-50-6889Hgvvfrq intakeYesMVan Wert County Hospital, KYTobacco smoking status NHISUnknown if ever smokedThe [facility] Work Phone: SexFemale (finding)[facility] Start: 77-72-3050Ivx Assigned At BirthFeBellevue Hospital Evaluation note Note Date & TypeNoteFacilityEvaluation note* Diagnosis Onset Date Resolution Status Admit Date Elevated blood pressure reading acuteNovember 2024 10:24amEncounter for initial annual wellness visit (AWV) in Medicare patientacuteNovember 2024 10:24amEncounter for screening mammogram for malignant neoplasm of breastacuteNovember 2024 10:24am Epigastric painacuteNovember 2024 10:24amHiatal herniaacuteNovember 2024 10:24amKnee pain, leftacuteNovember 2024 10:24amMixed hyperlipidemia acuteNovember 2024 10:24am [facility] Work Phone: Reason for referral (narrative) Note Date & TypeNoteFacilityReason for referral (narrative)No reason for referral information availableThe [facility] Work Phone: Discharge Instructions * Attachments The following attachments cannot be sent through Care Everywhere. * Pneumonia (Chinese) * Chest Pain (Chinese) documented in this encounter* Instructions* Hayley Browning RN - 02/20/2019 See me in the office as needed. Current guidelines call for a repeat colonoscopy in 10 years. Call the GI clinic at if you have a problem or question. It's normal to have a feeling of fullness or mild cramping in your abdomen afterwards due to air that is put into your bowel during the procedure. Mild activities such as walking will help you pass the air. You may resume your regular diet. CALL THE DOCTOR IF YOU HAVE: Chest pain or trouble breathing. A hoarse voice or trouble swallowing Bleeding from your rectum, vomiting or spitting up of blood that is more than a few streaks or red or black stools A fever above 101F or if you have chills Pain that is worse or different than any pain you had before the procedure Nausea or vomiting that lasts for more then 2 hours. If symptoms are to severe call 911 or go to the nearest Emergency Room. documented in this encounter Assessments Diagnosis Pneumonia due to organism- Primary Pneumonia due to other specified organism Advance Directives TypeDate RecordedPatient RepresentativeExplanationAdvance Directives and Living WillPower of AttorneyTypeDate RecordedPatient RepresentativeExplanationAdvance Directives and Living WillPower of Storekeeper [employer] Advance Directive Response Recorded Date/ Time Advance Directives No January 12:36pm Summary Purpose Family History Relationship Condition Age at Onset Recorded Date/T tianna mother Diabetes mellitus Unknown History of Present Illness * Alexia Christensen RN - 02/20/2019 2:53 PM EDT Report given to Hayley MESA documented in this encounter Chief Complaint and Reason for Visit Chief [...] 10:24am Mixed hyperlipidemia March 18, 2025 10:24am Additional Source Comments Reason for Visit (unrecogniz ed section and content) ReasonCommentsChest Painpt c/o left lateral chest wall pain, onset 1 week ago after having a coldStatusReasonSpecialtyDiagnoses / ProceduresReferred By ContactReferred To Contact Diagnoses Encounter for screening for malignant neoplasm of colon SCREENING, COLON CANCER SCREENING Procedures [place] COLON CA SCRN NOT HI RSK IND COLORECTAL CANCER SCREENING, NOT HIGH RISK Micaela Gould MD [address] [place] [address] [place] [address] [facility] INFORMATION SOURCE (unrecogn ized section and content) DATE CREATED AUTHOR 02/20/2019 [facility] DATE CREATED AUTHOR AUTHOR'S ORGANIZ ATION 05/26/2022 [facility] Care Teams (unrecognized sec tion and content) Team Status: Active Member Role/Relationship Status Dates IFRAH Kahn Primary Care Provider Active Team Status: Active Member Role/Relationship Status Dates IFRAH Kahn Attending Provider Active Start: January 27, 2025 Team Status: Inactive Member Role/Relationship Status Dates IFRAH Kahn Primary Care Provider Active Start: March 18, 2025 End: March 18, 2025Desire Kahntenlee ProviderActiveStart: March 18, 2025 End: March 18, 2025 Goals (unrecognized section and content) Goals may be documented in a n alternate section FOR RECORDS PERTAINING TO PATIENTS WHO ARE OR HAVE BEEN ENROLLED IN A CHEMICAL DEPENDENCY/SUBSTANCEABUSE PROGRAM, SOME INFORMATION MAY BE OMITTED. This clinical summary was aggregated from multiple sources. Caution should be exercised in using it in the provision of clinical care. This summary normalizes information from multiple sources, and as a consequence, information in this document may materially change the coding, format and clinical context of patient data. In addition, data may be omitted in some cases. CLINICAL DECISIONS SHOULD BE BASED ON THE PRIMARY CLINICAL RECORDS. [facility]. provides no warranty or guarantee of the accuracy or completeness of information in this document.
--- NOTE | 2025-03-27 07:58 | XR_ITS ---
The [address] [address] Patient Name: DESHAWN MANCIA MRN: [id number] date: 1960 Sex: F Assigned Patient Location: LAB Current Patient Location: LAB Accession/Order Number: [id number] Exam Date: 03/27/2025 08:00 Report Date: 03/27/2025 08:28 At the request of: KEDAR ASHTON NP Procedure: XR knee LT 3V LEFT KNEE - 3 views COMPARISON: None CLINICAL DATA: Increasing knee pain for several months. No injury. AP, lateral and internal oblique views were obtained. No acute fracture or dislocation is identified. There is no disproportionate joint space narrowing. Minor marginal spurring is noted, greatest at the posterior patella. A tiny rounded loose body is not excluded on the lateral aspect of the tibial spines. There is a trace amount joint fluid. No soft tissue swelling is visualized. XR/XR knee LT 3V IMPRESSION: MINOR DEGENERATIVE CHANGE. NO ACUTE BONY FINDINGS. Impression dictated by: Rosie Gupta M.D. 03/27/2025 8:28 AM Dictation Location: [place] [address] Electronically authenticated by: [id number] Y Date: 03/27/2025 08:28
[2025-03-27 08:06] LABS: Hematocrit 40.1 % (36.0-48.0); Hemoglobin 13.5 g/dL (12.0-16.0); Immature Granulocytes Abs Auto 0.01 10^3/uL (0.00-0.03); Immature Granulocytes Pct Auto 0.2 % (0.0-0.5); Lymphocytes Absolute Auto 2.2 10^3/uL (1.2-3.8); Mean Corpuscular HGB Conc 33.7 g/dL (29.9-35.2); Mean Corpuscular Hemoglobin 32.1 pg (26.7-34.0); Mean Corpuscular Volume 95.5 fL (81.0-99.0); Platelet Count 283 10^3/uL (150-450); Red Blood Count 4.20 10^6/uL (4.20-5.40); White Blood Count 5.8 10^3/uL (4.0-11.0)
[2025-03-27 08:06] LABS: Glucose Urine UA NEGATIVE (NEGATIVE)
[2025-03-27 08:19] LABS: Cast Seen? NONE SEEN #/LPF (NONE SEEN); Crystals Seen? None Seen #/HPF (None Seen)
[2025-03-27 09:24] LABS: Alanine Aminotransferase 36 U/L (14-59); Albumin Globulin Ratio 1.0; Albumin Level 3.7 g/dL (3.4-5.0); Alkaline Phosphatase 96 U/L (46-116); Anion Gap 12.1; Aspartate Amino Transferase 26 U/L (15-37); Blood Urea Nitrogen 14.0 mg/dL (7.0-18.0); Calcium 8.4 mg/dL (8.5-10.1); Carbon Dioxide 28.9 mmol/L (21.0-32.0); Chloride 102 mmol/L (98-107); Cholesterol 231 mg/dL (<=200); Estimated GFR (African America >60 (>=60 mL/min/1.73m^2); Estimated GFR (Non-African Ame >60 (>=60 mL/min/1.73m^2); Globulin 3.7 g/dL; Glucose 105 mg/dL (74-106); HDL Cholesterol 75 mg/dL (40-60); Potassium 4.0 mmol/L (3.5-5.1); Sodium 139 mmol/L (136-145); Thyroid Stimulating Hormone 7.047 uIU/mL (0.358-3.740); Total Protein 7.4 g/dL (6.4-8.2); Triglycerides 53 mg/dL (<=150); VLDL CHOLESTEROL 10.6 mg/dL
== END 2025-03-27 07:37 | disposition home or self-care (01) ==
LOC: LAB 07:40
PROVIDERS: PCP Nurse Practitioner; Visit Provider Nurse Practitioner
DX: E78.2 Mixed hyperlipidemia (principal); R03.0 Elevated blood-pressure reading, without diagnosis of hypertension; K57.20 Diverticulitis of large intestine with perforation and abscess without bleeding; M25.562 Pain in left knee
CPT/HCPCS: 36415; 73562; 80053; 80061; 81001; 84443; 85025

== ENCOUNTER 2025-04-16 07:01 | Outpatient (OUT) | payer MEDICARE, SELFPAY ==
--- NOTE | 2025-04-16 | MM_ITS ---
Patient Name: DESHAWN MANCIA MR#: [id number] : 1960 Exam Date: 04/16/2025 Ordering Doctor: IRMA ASHTON CNP RADIOLOGY REPORT PROCEDURE: MM TOMOSYNTHESIS SCREENING BI COMPARISON: MM TOMOSYNTHESIS SCREENING BI, 04/11/2023. MAMMO POST BIOPSY LEFT, 11/16/2021. MG MAMM SHARDA SCRN W CAD DIG, 05/06/2013. INDICATIONS: Screening mammogram; Z12.31 Calculator Name NCI Breast Cancer Risk Assessment Tool 5 Year Breast Cancer Risk 1.80% Lifetime Breast Cancer Risk 6.80% Personal Breast Cancer No Personal Ovarian Cancer No Treatments None Family Cancers None LOCATION: [facility] BREAST COMPOSITION: The breasts are heterogeneously dense, which may obscure small masses. FINDINGS: RIGHT BREAST: No significant suspicious finding. LEFT BREAST: No significant suspicious finding. But I neck calcifications are present. DIAGNOSTIC CATEGORY 2--BENIGN FINDING. NO CHANGE FROM COMPARISON. RECOMMENDATIONS: ROUTINE MAMMOGRAM AND CLINICAL EVALUATION IN 12 MONTHS. Dictated by: Cheng Velasquez MD on 04/16/2025 at 14:02 Approved by: Cheng Velasquez MD on 04/16/2025 at 14:05
--- OUTSIDE RECORDS SUMMARY | 2025-04-16 07:04 | XMS_ITS | CCD ---
Author Organization [facility] CliniSyvt Care Team Providers Care Rn Clinical Quality Name Role Phone Torrey Snow Primary Care Provider TORREY SNOW Primary Care Unavailable FARHAT JOHNSON [...] WILBERTO, DR CANDICE Noyola Admitting Unavailable AICHHOLZ, AGRICULTURAL PLOW OPERATOR ALEXIA Primary Care Unavailable Ruiz, DR Thomas Consulting Unavailable WILBERTO, DR CANDICE Noyola Consulting Unavailable JOEY, DR LIU Consulting Unavailable DILLAN, DEANNA Consulting Unavailable AICHHOLZ, AGRICULTURAL PLOW OPERATOR ALEXIA Consulting Unavailable AICHHOLZ, AGRICULTURAL PLOW OPERATOR ALEXIA Primary Care Unavailable AICHHOLZ, AGRICULTURAL PLOW OPERATOR ALEXIA Attending Unavailable AICHHOLZ, AGRICULTURAL PLOW OPERATOR ALEXIA Admitting Unavailable AICHHOLZ, AGRICULTURAL PLOW OPERATOR ALEXIA Consulting Unavailable AICHHOLZ, AGRICULTURAL PLOW OPERATOR ALEXIA Primary Care Unavailable AICHHOLZ, AGRICULTURAL PLOW OPERATOR ALEXIA Attending Unavailable AICHHOLZ, AGRICULTURAL PLOW OPERATOR ALEXIA Admitting Unavailable AICHHOLZ, AGRICULTURAL PLOW OPERATOR ALEXIA Consulting Unavailable AICHHOLZ, AGRICULTURAL PLOW OPERATOR ALEXIA Primary Care Unavailable AICHHOLZ, AGRICULTURAL PLOW OPERATOR ALEXIA Attending Unavailable AICHHOLZ, AGRICULTURAL PLOW OPERATOR ALEXIA Admitting Unavailable DR MICAELA AQUINO Consulting Unavailable Ruiz, DR Thomas Consulting Unavailable AICHHOLZ, AGRICULTURAL PLOW OPERATOR ALEXIA Primary Care Unavailable AICHHOLZ, AGRICULTURAL PLOW OPERATOR ALEXIA Attending Unavailable AICHHOLZ, AGRICULTURAL PLOW OPERATOR ALEXIA Admitting Unavailable AICHHOLZ, AGRICULTURAL PLOW OPERATOR ALEXIA Consulting Unavailable SUSI, DR MOMO Beavers Consulting Unavailaaron LOREDO, AGRICULTURAL PLOW OPERATOR ALEXIA Primary Care Unavailable SUSI, DR MOMO Beavers Attending Unavailaaron GOLDMAN, DR MOMO Beavers Admitting UnavailDR Maurice Lima Consulting Unavailable AICHHOLZ, AGRICULTURAL PLOW OPERATOR ALEXIA Primary Care Unavailable AICHHOLZ, AGRICULTURAL PLOW OPERATOR ALEXIA Attending Unavailable AICHHOLZ, AGRICULTURAL PLOW OPERATOR ALEXIA Admitting Unavailable AICHHOLZ, AGRICULTURAL PLOW OPERATOR ALEXIA Consulting Unavailable SUSI, DR MOMO Beavers Consulting Unavailaaron LOREDO, AGRICULTURAL PLOW OPERATOR ALEXIA Primary Care Unavailable SUSI, DR MOMO Beavers Attending Unavailaaron GOLDMAN, DR MOMO Beavers Admitting UnavailHENRIQUE Baires Consulting Unavailable EVITA YOUSSEF Consulting Unavailable SHINE MIRELES Consulting Unavailable Alexia Hall Attending Provider [phone] Alexia Hall Primary Care Provider Medications Current Medications MedicationDrug Class(es)DatesSig (Normalized)Sig (Original)ascorbic acid 500 mg oral tablet (1 source)Vitamin CStart: 12-25-0106rghu 1 tablet by mouth once dailyAscorbic Acid (Vitamin C) 500 mg tablet Active 500 MG PO Daily March 18, 2025 12:00am Complieswith drug therapyazithromycin 250 mg oral tablet (2 sources)Macrolide AntimicrobialStart: 01-04-2019 End: 56-91-8354ruzz 1 tablet by mouth once dailyazithromycin (ZITHROMAX) 250 MG tablet Take 1 tablet by mouth daily for 4 days 4 tablet 0 01/04/2019 01/08/2019 ActiveStart: 01-04-2019 End: 50-31-7360jgymsronhlya (ZITHROMAX) tablet 500 mgBlood Pressure KIT (1 source)Start: 74-20-1524Jiise Pressure KIT Indications: Elevated blood pressure reading 1 kit by Does not apply route 2 times daily 1 kit 0 01/17/2019 Activecalcium chloride 0.0014 meq/ml / potassium chloride 0.004 meq/ml / sodium chloride 0.103 meq/ml / sodium lactate 0.028 meq/ml injectable solution (1 source)Start: 98-31-5324rpvhcuhm ringers infusionlevothyroxine sodium 0.075 mg oral tablet (1 source)l-ThyroxineStart: 66-31-0544kvjd 1 tablet by mouth once daily levothyroxine (SYNTHROID) 75 MCG tablet Indications: Hypothyroidism, unspecified type Take 1 tabletby mouth daily 60 tablet 0 02/01/2019 ActiveMultiple Vitamin (MULTI VITAMIN DAILY PO) (1 source)Multiple Vitamin (MULTI VITAMIN DAILY PO) Take by mouth 0 Active Multivitamin tablet (1 source)Start: 89-01-8917fspj 1 tablet by mouth once dailyMultivitamin tablet Active 1 TAB PO Daily March 18, 2025 12:00am Complies with drug therapy Veteran-3 Fatty Acids capsule (1 source)Start: 34-85-7607bgba 1 capsule by mouth once dailyOmega-3 Fatty Acids capsule Active 500 MG PO Daily March 18, 2025 12:00am Complies with drug th erapyomeprazole 20 mg delayed release oral capsule (2 sources)Proton Pump InhibitorStart: 55-04-1417unfz 1 capsule by mouth once dailyOmeprazole 20 mg capsule,delayed release(DR/EC) Active 20 MG PO Daily 30 March 18, 2025 12:00am Epigastric pain Hiatal hernia Epigastric pain Diaphragmatic hernia without obstruction or gangrene Complies with drug therapy Start: 87-79-0536pghu 1 capsule by mouth once dailyomeprazole (PRILOSEC) 20 MG delayed release capsule Indications: Gastroesophageal reflux disease, es ophagitis presence not specified Take 1 capsule by mouth daily 90 capsule 0 01/17/2019 Activevitamin b12 0.5 mg chewable tablet (1 source)Vitamin H08Ggrar: 57-29-3113Qqgxyajrxdy (Vitamin B12) 500 mcg tablet,chewable Active MCG PO March 18, 2025 12:00am Complies with drug therapy Completed/Discontinued Medications MedicationDrug Class(es)DatesSig (Normalized)Sig (Original)magnesium sulfate 0.0277 meq/ml / potassium sulfate 0.0374 meq/ml / sodium sulfate 0.257 meq/ml oral solution (1 source)Start: 02-01-2019 End: 44-36-6184Np Sulfate-K Sulfate-Mg Sulf (SUPREP BOWEL PREP KIT) 17.5-3.13-1.6 GM/177ML SOLN Take as directed 2Bottle 0 02/01/2019 02/20/2019 Discontinued (Stop Taking at Discharge)50 ml sodium chloride 9 mg/ml injection (1 source)Start: 01-04-2019 End: 01-04-20190.9 % sodium chloride bolustraMADol hydrochloride 50 mg oral tablet (1 source)Opioid AgonistStart: 01-04-2019 End: 00-15-6888ywcSYNwq (ULTRAM) tablet 50 mg Problems Active Problems Problem ClassificationProblemDateDocumented DateEpisodic/ChronicAbdominal hernia (3 sources)Diaphragmatic hernia without obstruction or gangrene; Translations: [Hiatal hernia]Onset: 790205-52-9459FtbkgobdSjlmfdpcj pain (2 sources)Epigastric pain; Translations: [Epigastric pain]20-17-8372Yblkvtbu Anxiety disorders (1 source)Anxiety; Translations: [Anxiety]Onset: 167153-92-5279Ryhlytf Disorders of lipid metabolism (2 sources)Mixed hyperlipidemia; Translations: [Mixed hyperlipidemia]03-18-2025 ChronicDiverticulosis and diverticulitis (4 sources)Diverticulitis of large intestine with perforation and abscess without bleeding; Translations: [Diverticulitis of colon with perforation]Onset: 02-39-0624PwhndthOiogltwjxn disorders (1 source)Gastroesophageal reflux disease; Translations: [Gastroesophageal reflux disease]Onset: 268433-21-2404EzrtzqoFdbndoyrkpac breast conditions (1 source)Diffuse cystic mastopathy of left breast; Translations: [DIFFUSE CYSTIC MASTOPATHY LT BREAST]Onset: 71-66-5444ZdljbarLtllw circulatory disease (3 sources)Elevated blood pressure; Translations: [Elevated blood-pressure reading, without diagnosis of hypertension]Onset: 367596-80-0596Cnusoiut Other diseases of bladder and urethra (1 source)Polyp of urethra; Translations: [Urethral caruncle]44-78-7509Rqejdpqq Other liver diseases (1 source)Liver disease, unspecified; Translations: [LIVER DISEASE UNSPECIFIED] Onset: 56-86-3033GalxcryIgmdb non-traumatic joint disorders (2 sources)Pain in left knee; Translations: [Left knee pain]52-70-3032Uzgxcdzw Other nutritional; endocrine; and metabolic disorders (1 source)Obesity, unspecified; Translations: [OBESITY UNSPECIFIED]Onset: 60-38-5847PvzjokxPbnqv nutritional; endocrine; and metabolic disorders (1 source)Body mass index (BMI) 32.0-32.9, adult; Translations: [BODY MASS INDEX BMI 32.0-32.9 ADULT]Onset: 74-63-0651UehckbmOadao screening for suspected conditions (not mental disorders or infectious disease) (15 sources)Other abnormal and inconclusive findings on diagnostic imaging of breast; Translations: [Encounter for screening mammogram for malignant neoplasm of breast]Onset: 27-46-5871SgdqpbifGilxnrvwe (except that caused by tuberculosis or sexually transmitted disease) (1 source)Infective pneumonia; Translations: [Pneumonia due to organism]Episodic Screening and history of mental health and substance abuse codes (1 source)Personal history of nicotine dependence; Translations: [PERSONAL HISTORY OF NICOTINE DEPEND]Onset: 32-54-2240QktvyokaOexcsfm disorders (1 source)Hypothyroidism; Translations: [Hypothyroidism]Onset: 01-30-2019 95-26-7168FcvwlkjJjzwwqghaect (1 source)Patient encounter status; Translations: [Colon cancer screening]Onset: 032395-03-7949Eqvivxmptanx (1 source)CONTACT W/AND (SUSP) EXPOS COVID-19; Translations: [CONTACT W/AND (SUSP) EXPOS COVID-19]Onset: 04-13-2022 Past or Other Problems Problem ClassificationProblemDateDocumented DateEpisodic/ChronicNonmalignant breast conditions (1 source)Hypertrophy of breast; Translations: [HYPERTROPHY OF BREAST]Onset: 53-93-1497Kdnlpnik Results Test NameValueInterpretationReference RangeFacilityCovid-19 PCR (CVDTBH)on 23-91-4125IXQG-CoV-2 (COVID-19) RNA JOSE E+probe Ql (Unsp spec)Not detectedNormal NOT DETECTEDThe [facility] HospitalComment on above:Result Comment: This test is not yet approved or cleared by the [place] FDA. When there are no FDA- approved or cleared tests available, and other criteria are met, FDA can make tests available under an emergency access mechanism called an Emergency Use Authorization (EUA). The EUA for this test is supported by the [place] of Health and Human Service's (HHS's) declaration [...] consistent with SARS-CoV-2.Performed By: #### CBC #### [facility] [address] [place] [address] Dr. Isaiah Harrell AUTO DIFFon 54-50-4332EMFE #0.0 103/ulNormal0.0-0.1[facility] HospitalComment on above:Performed By: #### CBC #### [facility] [address] [place] [address] Dr. Isaiah NevesBasophils/100 WBC (Bld)0.6 %Normal0.2-2.0[facility] Comment on above:Performed By: #### CBC #### [facility] [address] [place] [address] Dr. Isaiah Lara #0.3 103/ulNormal0.0-0.7The [facility] HospitalComment on above: Performed By: #### CBC #### [facility] [address] [place] [address] Dr. Isaiah Goodrichosinophils/100 WBC (Bld)3.9 %Normal0.9-7.0[facility] Comment on above:Performed By: #### CBC #### [facility] [address] [place] [address] Dr. Isaiah Goodrichrythrocyte distribution width (RBC) [Ratio]12.3 %Eyhtvn86.0-15.0 [facility] HospitalComment on above:Performed By: #### CBC #### [facility] [address] [place] [address] Dr. Isaiah NevesHematocrit (Bld) [Volume fraction]35.3 %Critically low36.0-48.0 The [facility] HospitalComment on above:Performed By: #### CBC #### [facility] [address] [place] [address] Dr. Isaiah NevesHemoglobin (Bld) [Mass/Vol]12.1 g/lPQxnttq43.0-16.0The [facility] HospitalComment on above:Performed By: #### CBC #### [facility] [address] [place] [address] Dr. Isaiah Spangler #0.02 10e3/ulNormal0.00-0.03The [facility] HospitalComment on above:Performed By: #### CBC #### [facility] [address] [place] [address] Dr. Isaiah Spangler %0.3 %Normal0.0-0.5The [facility] HospitalComment on above: Performed By: #### CBC #### [facility] [address] [place] [address] Dr. Isaiah Pitt #1.8 103/ulNormal1.2-3.8The [facility] HospitalComment on above:Performed By: #### CBC #### [facility] [address] [place] [address] Dr. Isaiah Mistryhocytes/100 WBC (Bld)26.7 %Wfdqmr38.5-60.0The [facility] HospitalComment on above:Performed By: #### CBC #### [facility] [address] [place] [address] Dr. Isaiah NavaUAL DIFF REQNONormalThe [facility] HospitalComment on above: Performed By: #### CBC #### [facility] [address] [place] [address] Dr. Isaiah Wesley (RBC) [Entitic mass]31.0 gxWqwodb51.7-34.0The [facility] HospitalComment on above:Performed By: #### CBC #### [facility] [address] [place] [address] Dr. Isaiah Jaeger (RBC) [Mass/Vol]34.3 g/vUJviurf85.9-35.2The [facility] HospitalComment on above:Performed By: #### CBC #### [facility] [address] [place] [address] Dr. Isaiah JaegerV (RBC) [Entitic vol]90.5 qNOageka60.0-99.0The [facility] HospitalComment on above:Performed By: #### CBC #### [facility] [address] [place] [address] Dr. Isaiah Garcia #0.4 103/ulNormal0.3-0.8The [facility] HospitalComment on above:Performed By: #### CBC #### [facility] [address] [place] [address] Dr. Isaiah Hurstocytes/100 WBC (Bld)6.4 %Normal1.7-12.0The [facility] Comment on above:Performed By: #### CBC #### [facility] [address] [place] [address] Dr. Isaiah Krueger #4.1 103/ulNormal1.4-6.5The [facility] HospitalComment on above:Performed By: #### CBC #### [facility] [address] [place] [address] Dr. Isaiah Wuutrophils/100 WBC (Bld)62.1 %Lxtwta58.0-75.0The [facility] HospitalComment on above:Performed By: #### CBC #### [facility] [address] [place] [address] Dr. Isaiah Holet mean volume (Bld) [Entitic vol]10.0 fLNormal9.5-13.5The [facility] HospitalComment on above:Performed By: #### CBC #### [facility] [address] [place] [address] Dr. Isaiah ChambersT282 103/qgAsodrg363-228Ucs [facility] HospitalComment on above: Performed By: #### CBC #### [facility] [address] [place] [address] Dr. Isaiah GaleC3.90 106/ulCritically low4.20-5.40The [facility] HospitalComment on above:Performed By: #### CBC #### [facility] [address] [place] [address] Dr. Isaiah NevesWBC6.6 103/ulNormal4.0-11.0The [facility] HospitalComment on above: Performed By: #### CBC #### [facility] [address] [place] [address] Dr. Isaiah JasonF 14(COMP METB)on 77-42-4013Igqieyv [Mass/Vol]2.8 g/dL Critically low3.4-5.0The [facility] HospitalComment on above:Performed By: #### CMP #### [facility] [address] [place] [address] Dr. Isaiah NevesAlbumin/Globulin [Mass ratio]0.7 {ratio}NormalThe [facility] HospitalComment on above:Performed By: #### CMP #### [facility] [address] [place] [address] Dr. Isaiah GlassP [Catalytic activity/Vol]112 U/CGhvjuc51-654Tcf [facility] HospitalComment on above:Performed By: #### CMP #### [facility] [address] [place] [address] Dr. Isaiah Guajardo [Catalytic activity/Vol]48 U/MVikdkd42-65Xnn [facility] HospitalComment on above:Performed By: #### CMP #### [facility] [address] [place] [address] Dr. Isaiah Leung gap [Moles/Vol]9.6 mmol/LNormalThe [facility] HospitalComment on above:Performed By: #### CMP #### [facility] [address] [place] [address] Dr. Isaiah Vanegas [Catalytic activity/Vol]22 U/ISqkdhx27-81Xrl [facility] HospitalComment on above:Performed By: #### CMP #### [facility] [address] [place] [address] Dr. Isaiah NevesBilirubin [Mass/Vol]0.2 mg/dLNormal0.2-1.0The [facility] Comment on above:Performed By: #### CMP #### [facility] [address] [address] [address] Isaiah NevesCalcium [Mass/Vol]8.7 mg/dLNormal8.5-10.1The [facility] Comment on above:Performed By: #### CMP #### [facility] [address] [address] [address] Isaiah NevesChloride [Moles/Vol]104 mmol/BNiiutp11-842Lef [facility] Comment on above:Performed By: #### CMP #### [facility] [address] [place] [address] Dr. Isaiah NevesCO2 [Moles/Vol]27.0 mmol/GXywuev06.0-32.0The [facility] Comment on above:Performed By: #### CMP #### [facility] [address] [place] [address] Dr. Isaiah NevesCreatinine [Mass/Vol]0.53 mg/dLCritically low0.55-1.02The [facility] HospitalComment on above:Performed By: #### CMP #### [facility] [address] [place] [address] Dr. Isaiah GoodrichGFR-AF SWAZI>60Normal>=60The [facility] HospitalComment on above:Performed By: #### CMP #### [facility] [address] [address] [address] Isaiah GoodrichGFR-NON AF SWAZI>60Normal>=60The [facility] HospitalComment on above:Performed By: #### CMP #### [facility] [address] [address] [address] Isaiah NevesGlobulin (S) [Mass/Vol]3.8 g/dLNormalThe [facility] HospitalComment on above:Performed By: #### CMP #### [facility] [address] [address] [address] Isaiah NevesGlucose [Mass/Vol]119 mg/dLCritically dhjy51-787Ufv [facility] HospitalComment on above:Performed By: #### CMP #### [facility] [address] [address] [address] Isaiah NevesPotassium [Moles/Vol]3.6 mmol/LNormal3.5-5.1The [facility] Comment on above:Performed By: #### CMP #### [facility] [address] [address] [address] Isaiah NevesProtein [Mass/Vol]6.6 g/dLNormal6.4-8.2[facility] Comment on above:Performed By: #### CMP #### [facility] [address] [address] [address] Isaiah Leonardodium [Moles/Vol]137 mmol/HKenngo240-056BxwAvita Health System [facility] Hospital Comment on above:Performed By: #### CMP #### [facility] [address] [address] [address] Isaiah NevesUrea nitrogen [Mass/Vol]3.0 mg/dLCritically low7.0-18.0[facility] HospitalComment on above:Performed By: #### CMP #### [facility] [address] [address] [address] Isaiah Bergman nitrogen/Creatinine [Mass ratio]5.7 mg/mgNormalThe [facility] HospitalComment on above:Performed By: #### CMP #### [facility] [address] [address] [address] Isaiah Harrell AUTO DIFFon 59-92-6483YUYS #0.0 103/ulNormal0.0-0.1[facility] HospitalComment on above:Performed By: #### CBC #### [facility] [address] [address] [address] Isaiah NevesBaleannephils/100 WBC (Bld)0.6 %Normal0.2-2.0[facility] Comment on above:Performed By: #### CBC #### [facility] [address] [place] [address] Dr. Colon ChangEO #0.2 103/ulNormal0.0-0.7The [facility] HospitalComment on above: Performed By: #### CBC #### [facility] [address] [place] [address] Dr. Isaiah Goodrichosinophils/100 WBC (Bld)3.0 %Normal0.9-7.0The [facility] Comment on above:Performed By: #### CBC #### [facility] [address] [place] [address] Dr. Isaiah Goodrichrythrocyte distribution width (RBC) [Ratio]12.5 %Mjtbqm22.0-15.0 The [facility] HospitalComment on above:Performed By: #### CBC #### [facility] [address] [place] [address] Dr. Isaiah NevesHematocrit (Bld) [Volume fraction]36.0 %Odolcz64.0-48.0The [facility] HospitalComment on above:Performed By: #### CBC #### [facility] [address] [place] [address] Dr. Isaiah NevesHemoglobin (Bld) [Mass/Vol]12.2 g/eNIqtsms09.0-16.0The [facility] HospitalComment on above:Performed By: #### CBC #### [facility] [address] [place] [address] Dr. Isaiah Spangler #0.02 10e3/ulNormal0.00-0.03The [facility] HospitalComment on above:Performed By: #### CBC #### [facility] [address] [place] [address] Dr. Isaiah Spangler %0.3 %Normal0.0-0.5The [facility] HospitalComment on above: Performed By: #### CBC #### [facility] [address] [place] [address] Dr. Isaiah Pitt #1.7 103/ulNormal1.2-3.8The [facility] HospitalComment on above:Performed By: #### CBC #### [facility] [address] [place] [address] Dr. Yilan ChangLymphocytes/100 WBC (Bld)24.7 %Wxbznp86.5-60.0The [facility] HospitalComment on above:Performed By: #### CBC #### [facility] [address] [place] [address] Dr. Isaiah NavaUAL DIFF REQNONormalThe [facility] HospitalComment on above: Performed By: #### CBC #### [facility] [address] [place] [address] Dr. Isaiah Jaeger (RBC) [Entitic mass]31.3 geAvelva22.7-34.0The [facility] HospitalComment on above:Performed By: #### CBC #### [facility] [address] [place] [address] Dr. Isaiah Jaeger (RBC) [Mass/Vol]33.9 g/gVFamtzf09.9-35.2The [facility] HospitalComment on above:Performed By: #### CBC #### [facility] [address] [place] [address] Dr. Isaiah Jaeger (RBC) [Entitic vol]92.3 pMEsmyxu61.0-99.0The [facility] HospitalComment on above:Performed By: #### CBC #### [facility] [address] [place] [address] Dr. Isaiah Garcia #0.5 103/ulNormal0.3-0.8The [facility] HospitalComment on above:Performed By: #### CBC #### [facility] [address] [place] [address] Dr. Isaiah Hurstocytes/100 WBC (Bld)6.6 %Normal1.7-12.0The [facility] Comment on above:Performed By: #### CBC #### [facility] [address] [place] [address] Dr. Isaiah Krueger #4.5 103/ulNormal1.4-6.5The [facility] HospitalComment on above:Performed By: #### CBC #### [facility] [address] [place] [address] Dr. Isaiah Wuutrophils/100 WBC (Bld)64.8 %Yiffsb35.0-75.0The [facility] HospitalComment on above:Performed By: #### CBC #### [facility] [address] [address] [address] Isaiah NevesPlatelet mean volume (Bld) [Entitic vol]10.1 fLNormal9.5-13.5The [facility] HospitalComment on above:Performed By: #### CBC #### [facility] [address] [address] [address] Isaiah NevesPLT272 103/zjOpgzbl840-246Ltt [facility] on above: Performed By: #### CBC #### [facility] [address] [place] [address] Dr. Isaiah NevesRBC3.90 106/ulCritically low4.20-5.40The [facility] on above:Performed By: #### CBC #### [facility] [address] [place] [address] Dr. Isaiah NevesWBC7.0 103/ulNormal4.0-11.0The [facility] HospitalComment on above: Performed By: #### CBC #### [facility] [address] [place] [address] Dr. Isaiah NevesPROAp 14(COMP METB)on [id number] [Mass/Vol]2.6 g/dL Critically low3.4-5.0The [facility] on above:Performed By: #### CBC #### [facility] [address] [place] [address] Dr. Isaiah NevesAlbumin/Globulin [Mass ratio]0.7 {ratio}NormalThe [facility] HospitalCommunson healthcare [facility] on above:Performed By: #### CBC #### [facility] [address] [place] [address] Dr. Isaiah GlassP [Catalytic activity/Vol]125 U/LCritically pxec14-887Lqr [facility] on above:Performed By: #### CBC #### [facility] [address] [address] [address] Isaiah GlassT [Catalytic activity/Vol]60 U/LCritically mhpe35-01Ziq [facility] HospitalComment on above:Performed By: #### CBC #### [facility] [address] [address] [address] Isaiah NevesAnion gap [Moles/Vol]10.8 mmol/LNormalThe [facility] Comment on above:Performed By: #### CBC #### [facility] [address] [address] [address] Isaiah NevesAST [Catalytic activity/Vol]28 U/QKgrzmt91-89Abr [facility] HospitalComment on above:Performed By: #### CBC #### [facility] [address] [address] [address] Isaiah NevesBilirubin [Mass/Vol]0.3 mg/dLNormal0.2-1.0The [facility] Comment on above:Performed By: #### CBC #### [facility] [address] [address] [address] Isaiah NevesCalcium [Mass/Vol]8.1 mg/dLCritically low8.5-10.1The [facility] HospitalComment on above:Performed By: #### CBC #### [facility] [address] [address] [address] Isaiah NevesChloride [Moles/Vol]103 mmol/IKaanqm85-075Bwc [facility] Comment on above:Performed By: #### CBC #### [facility] [address] [address] [address] Isaiah NevesCO2 [Moles/Vol]25.7 mmol/CNgiohu79.0-32.0The [facility] Comment on above:Performed By: #### CBC #### [facility] [address] [address] [address] Isaiah NevesCreatinine [Mass/Vol]0.51 mg/dLCritically low0.55-1.02The [facility] HospitalComment on above:Performed By: #### CBC #### [facility] [address] [address] [address] Isaiah GoodrichGFR-AF SWAZI>60Normal>=60The [facility] HospitalComment on above:Performed By: #### CBC #### [facility] [address] [place] [address] Dr. Isaiah GoodrichGFR-NON AF SWAZI>60Normal>=60The [facility] HospitalComment on above:Performed By: #### CBC #### [facility] [address] [place] [address] Dr. Isaiah NevesGlobulin (S) [Mass/Vol]3.8 g/dLNormalThe [facility] HospitalComment on above:Performed By: #### CBC #### [facility] [address] [place] [address] Dr. Isaiah NevesGlucose [Mass/Vol]110 mg/dLCritically wnqe99-468Cjh [facility] HospitalComment on above:Performed By: #### CBC #### [facility] [address] [place] [address] Dr. Isaiah NevesPotassium [Moles/Vol]3.5 mmol/LNormal3.5-5.1The [facility] Comment on above:Performed By: #### CBC #### [facility] [address] [place] [address] Dr. Isaiah NevesProtein [Mass/Vol]6.4 g/dLNormal6.4-8.2The [facility] Comment on above:Performed By: #### CBC #### [facility] [address] [place] [address] Dr. Isaiah NevesSodium [Moles/Vol]136 mmol/ZThucwe378-408Aws [facility] Comment on above:Performed By: #### CBC #### [facility] [address] [place] [address] Dr. Isaiah NevesUrea nitrogen [Mass/Vol]7.0 mg/dLNormal7.0-18.0The [facility] HospitalComment on above:Performed By: #### CBC #### [facility] [address] [place] [address] Dr. Isaiah NevesUrea nitrogen/Creatinine [Mass ratio]13.7 mg/mgNoUniversity Hospitals Beachwood Medical CenterComment on above:Performed By: #### CBC #### [facility] [id number] Isaiah NevesXR ABD FLAT UP_PA Satya [id number] ABD FLAT UP_PA CHEXAM: XR ABD FLAT [...] Electronically authenticated by: DEANNA DILLAN Date: 2022-03-30 11:07[facility] HospitalCB AUTO DIFFon [id number] #0.0 103/ulNormal0.0-0.1The [facility] HospitalComment on above:Performed By: #### CBC #### [facility] [address] [place], [place] [address] Dr. Isaiah NevesBasophils/100 WBC (Bld)0.5 %Normal0.2-2.0The [facility] Comment on above:Performed By: #### CBC #### [facility] [address] [address] [address] Isaiah Lara #0.2 103/ulNormal0.0-0.7The [facility] HospitalComment on above: Performed By: #### CBC #### [facility] [address] [place] [address] Dr. Isaiah Goodrichosinophils/100 WBC (Bld)2.8 %Normal0.9-7.0The [facility] Comment on above:Performed By: #### CBC #### [facility] [address] [place] [address] Dr. Isaiah Goodrichrythrocyte distribution width (RBC) [Ratio]12.5 %Awkuvr89.0-15.0 The [facility] HospitalComment on above:Performed By: #### CBC #### [facility] [address] [place] [address] Dr. Isaiah NevesHematocrit (Bld) [Volume fraction]35.9 %Critically low36.0-48.0 The [facility] HospitalComment on above:Performed By: #### CBC #### [facility] [address] [place] [address] Dr. Isaiah NevesHemoglobin (Bld) [Mass/Vol]12.0 g/rPPiqdge08.0-16.0The [facility] HospitalComment on above:Performed By: #### CBC #### [facility] [address] [place] [address] Dr. Isaiah Spangler #0.03 10e3/ulNormal0.00-0.03The [facility] HospitalComment on above:Performed By: #### CBC #### [facility] [address] [place] [address] Dr. Isaiah Spangler %0.4 %Normal0.0-0.5The [facility] HospitalComment on above: Performed By: #### CBC #### [facility] [address] [place] [address] Dr. Isaiah Pitt #1.6 103/ulNormal1.2-3.8The [facility] HospitalComment on above:Performed By: #### CBC #### [facility] [address] [place] [address] Dr. Yilan ChangLymphocytes/100 WBC (Bld)20.0 %Critically low20.5-60.0The [facility] HospitalComment on above:Performed By: #### CBC #### [facility] [address] [place] [address] Dr. Isaiah Roman DIFF REQNONormalThe [facility] HospitalComment on above: Performed By: #### CBC #### [facility] [address] [place] [address] Dr. Isaiah Jaeger (RBC) [Entitic mass]31.1 ffMhoplj13.7-34.0The [facility] HospitalComment on above:Performed By: #### CBC #### [facility] [address] [place] [address] Dr. Isaiah Jaeger (RBC) [Mass/Vol]33.4 g/eNTtujbs39.9-35.2The [facility] HospitalComment on above:Performed By: #### CBC #### [facility] [address] [place] [address] Dr. Isaiah Mcmahan (RBC) [Entitic vol]93.0 hPPiuxjh79.0-99.0The [facility] HospitalComment on above:Performed By: #### CBC #### [facility] [address] [place] [address] Dr. Isaiah Garcia #0.4 103/ulNormal0.3-0.8The [facility] HospitalComment on above:Performed By: #### CBC #### [facility] [address] [place] [address] Dr. Isaiah Hurstocytes/100 WBC (Bld)5.3 %Normal1.7-12.0The [facility] Comment on above:Performed By: #### CBC #### [facility] [address] [place] [address] Dr. Isaiah Krueger #5.5 103/ulNormal1.4-6.5The [facility] HospitalComment on above:Performed By: #### CBC #### [facility] [address] [place] [address] Dr. Isaiah Wuutrophils/100 WBC (Bld)71.0 %Nsvuqc68.0-75.0The [facility] Centerment on above:Performed By: #### CBC #### [facility] [address] [address] [address] Isaiah Holet mean volume (Bld) [Entitic vol]10.1 fLNormal9.5-13.5The [facility] HospitalComment on above:Performed By: #### CBC #### [facility] [address] [address] [address] Isaiah NevesPLT245 103/etMzsogs058-295Ybu [facility] on above: Performed By: #### CBC #### [facility] [address] [place] [address] Dr. Isaiah NevesRBC3.86 106/ulCritically low4.20-5.40The [facility] on above:Performed By: #### CBC #### [facility] [address] [place] [address] Dr. Isaiah NevesWBC7.8 103/ulNormal4.0-11.0The [facility] on above: Performed By: #### CBC #### [facility] [address] [place] [address] Dr. Isaiah Torres 14(COMP METB)on [id number] [Mass/Vol]2.7 g/dL Critically low3.4-5.0The [facility] on above:Performed By: #### CMP #### [facility] [address] [place] [address] Dr. Isaiah NevesAlbumin/Globulin [Mass ratio]0.7 {ratio}NormalThe [facility] on above:Performed By: #### CMP #### [facility] [address] [place] [address] Dr. Isaiah GlassP [Catalytic activity/Vol]141 U/LCritically oipm46-399Ysk [facility] on above:Performed By: #### CMP #### [facility] [address] [address] [address] Isaiah GlassT [Catalytic activity/Vol]92 U/LCritically pbcf59-72Lvo [facility] HospitalComment on above:Performed By: #### CMP #### [facility] [address] [address] [address] Isaiah Zamoraon gap [Moles/Vol]16.8 mmol/LNormalThe [facility] Comment on above:Performed By: #### CMP #### [facility] [address] [address] [address] Isaiah NevesAST [Catalytic activity/Vol]65 U/LCritically scdv46-16Srk [facility] HospitalComment on above:Performed By: #### CMP #### [facility] [address] [address] [address] Isaiah NevesBilirubin [Mass/Vol]0.4 mg/dLNormal0.2-1.0The [facility] Comment on above:Performed By: #### CMP #### [facility] [address] [address] [address] Isaiah NevesCalcium [Mass/Vol]8.0 mg/dLCritically low8.5-10.1The [facility] HospitalComment on above:Performed By: #### CMP #### [facility] [address] [address] [address] Isaiah NevesChloride [Moles/Vol]104 mmol/QJxpgne26-906Ihg [facility] Comment on above:Performed By: #### CMP #### [facility] [address] [address] [address] Isaiah NevesCO2 [Moles/Vol]20.6 mmol/LCritically low21.0-32.0The [facility] HospitalComment on above:Performed By: #### CMP #### [facility] [address] [address] [address] Isaiah NevesCreatinine [Mass/Vol]0.49 mg/dLCritically low0.55-1.02The [facility] HospitalComment on above:Performed By: #### CMP #### [facility] [address] [place] [address] Dr. Isaiah GoodrichGFR-AF SWAZI>60Normal>=60The [facility] HospitalComment on above:Performed By: #### CMP #### [facility] [address] [place] [address] Dr. Isaiah GoodrichGFR-NON AF SWAZI>60Normal>=60The [facility] HospitalComment on above:Performed By: #### CMP #### [facility] [address] [place] [address] Dr. Isaiah NevesGlobulin (S) [Mass/Vol]4.0 g/dLNormalThe [facility] HospitalComment on above:Performed By: #### CMP #### [facility] [address] [place] [address] Dr. Isaiah NevesGlucose [Mass/Vol]72 mg/dLCritically ins84-743Hmm [facility] HospitalComment on above:Performed By: #### CMP #### [facility] [address] [place] [address] Dr. Isaiah NevesPotassium [Moles/Vol]3.4 mmol/LCritically low3.5-5.1The [facility] HospitalComment on above:Performed By: #### CMP #### [facility] [address] [place] [address] Dr. Isaiah NevesProtein [Mass/Vol]6.7 g/dLNormal6.4-8.2[facility] Comment on above:Performed By: #### CMP #### [facility] [address] [place] [address] Dr. Isaiah NevesSodium [Moles/Vol]138 mmol/WGoblcy964-823Yll [facility] Comment on above:Performed By: #### CMP #### [facility] [address] [place] [address] Dr. Isaiah NevesUrea nitrogen [Mass/Vol]14.0 mg/dLNormal7.0-18.0The [facility] HospitalComment on above:Performed By: #### CMP #### [facility] [address] [place] [address] Dr. Isaiah NevesUrea nitrogen/Creatinine [Mass ratio]28.6 mg/mgNoalThDelaware County HospitalComment on above:Performed By: #### CMP #### [facility] [address] [place] [address] Dr. Isaiah Harrell AUTO DIFFon [id number] #0.0 103/ulNormal0.0-0.1The [facility] HospitalComment on above:Performed By: #### CBC #### [facility] [address] [place] [address] Dr. Isaiah NevesBasophils/100 WBC (Bld)0.3 %Normal0.2-2.0[facility] Comment on above:Performed By: #### CBC #### [facility] [address] [place] [address] Dr. Isaiah Lara #0.1 103/ulNormal0.0-0.7The [facility] HospitalComment on above: Performed By: #### CBC #### [facility] [address] [place] [address] Dr. Isaiah Goodrichosinophils/100 WBC (Bld)1.2 %Normal0.9-7.0[facility] Comment on above:Performed By: #### CBC #### [facility] [address] [place] [address] Dr. Isaiah Goodrichrythrocyte distribution width (RBC) [Ratio]12.8 %Orubwb94.0-15.0 The [facility] HospitalComment on above:Performed By: #### CBC #### [facility] [address] [place] [address] Dr. Isaiah NevesHematocrit (Bld) [Volume fraction]37.8 %Urifnh37.0-48.0The [facility] HospitalComment on above:Performed By: #### CBC #### [facility] [address] [place] [address] Dr. Isaiah NevesHemoglobin (Bld) [Mass/Vol]12.9 g/zXUmawsm06.0-16.0The [facility] HospitalComment on above:Performed By: #### CBC #### [facility] [address] [place] [address] Dr. Isaiah Spangler #0.03 10e3/ulNormal0.00-0.03The [facility] HospitalCommunson [facility] on above:Performed By: #### CBC #### [facility] [address] [place] [address] Dr. Isaiah Spangler %0.3 %Normal0.0-0.5The [facility] HospitalCommunson [facility] on above: Performed By: #### CBC #### [facility] [address] [place] [address] Dr. Isaiah Pitt #1.5 103/ulNormal1.2-3.8The [facility] HospitalCommun[facility] on above:Performed By: #### CBC #### [facility] [address] [place] [address] Dr. Isaiah Mistryhocytes/100 WBC (Bld)15.5 %Critically low20.5-60.0The [facility] HospitalCommunson [facility] on above:Performed By: #### CBC #### [facility] [address] [place] [address] Dr. Isaiah NavaUAL DIFF REQNONormalThe [facility] on above: Performed By: #### CBC #### [facility] [address] [place] [address] Dr. Isaiah Jaeger (RBC) [Entitic mass]31.6 gvGmxhud89.7-34.0The [facility] on above:Performed By: #### CBC #### [facility] [address] [place] [address] Dr. Isaiah Jaegre (RBC) [Mass/Vol]34.1 g/sPUcdsgd51.9-35.2The [facility] on above:Performed By: #### CBC #### [facility] [address] [place] [address] Dr. Isaiah Jaeger (RBC) [Entitic vol]92.6 wYKbotfn74.0-99.0The [facility] HospitalComment on above:Performed By: #### CBC #### [facility] [address] [address] [address] Isaiah Garcia #0.4 103/ulNormal0.3-0.8The [facility] HospitalComment on above:Performed By: #### CBC #### [facility] [address] [address] [address] Isaiah Hurstocytes/100 WBC (Bld)4.2 %Normal1.7-12.0The [facility] Comment on above:Performed By: #### CBC #### [facility] [address] [place] [address] Dr. Isaiah Krueger #7.5 103/ulCritically high1.4-6.5The [facility] Comment on above:Performed By: #### CBC #### [facility] [address] [place] [address] Dr. Isaiah Wuutrophils/100 WBC (Bld)78.5 %Critically high43.0-75.0The [facility] HospitalComment on above:Performed By: #### CBC #### [facility] [address] [place] [address] Dr. Isaiah Jeffries mean volume (Bld) [Entitic vol]9.8 fLNormal9.5-13.5The [facility] HospitalComment on above:Performed By: #### CBC #### [facility] [address] [place] [address] Dr. Isaiah NevesPLT250 103/nrCgyevk009-445Uqa [facility] HospitalComment on above: Performed By: #### CBC #### [facility] [address] [place] [address] Dr. Isaiah NevesRBC4.08 106/ulCritically low4.20-5.40The [facility] HospitalComment on above:Performed By: #### CBC #### [facility] [address] [place] [address] Dr. Isaiah NevesWBC9.5 103/ulNormal4.0-11.0The [facility] HospitalComment on above: Performed By: #### CBC #### [facility] [address] [address] [address] Isaiah NevesCT ABD/PELV W CONon [id number] ABD/PELV W CONEXAMINATION: CT ABD/PELV W CON, [...] Electronically authenticated by: MAURICE MELCHOR Date: 2022-03-28 11:13NoUniversity Hospitals Beachwood Medical CenterCULTURE BLOODon [id number] examination of blood, cultureCulture Observations: NO GROWTH AT 5 DAYS.NormalThe [facility] HospitalComment on above:Performed By: #### CBC #### [facility] [address] [address] [address] Isaiah NevesMicroscopic examination of blood, cultureCulture Observations: NO GROWTH AT 5 DAYS.NormalThe [facility] HospitalComment on above:Performed By: #### CBC #### [facility] [address] [place] [address] Dr. Isaiah Dunnevid-19 PCR (CVDTB)on [id number]-CoV-2 (COVID-19) RNA JOSE E+probe Ql (Unsp spec)Not detectedNormalNOT DETECTEDThe [facility] Comment on above:Result Comment: When diagnostic [...] for this test is supported by the [place] of Health and Human Service's declaration that [...] longer be used).Performed By: #### CVDTBH #### [facility] [address] [place] [address] Dr. Isaiah Luciano URINE PROFILEon [id number] Ql (U)SMALLAbnormal NEGATIVEAvita Health System Galion HospitalComment on above:Performed By: #### ERUR #### [facility] [address] [place] [address] Dr. Isaiah Herrera (U)CLEARNormalCLEARAvita Health System Galion HospitalComment on above: Performed By: #### ERUR #### [facility] [address] [place] [address] Dr. Isaiah Castro (U)YELLOWNormalYELLOWThe [facility] HospitalComment on above: Performed By: #### ERUR #### [facility] [address] [place] [address] Dr. Isaiah Ovalle micrscopic examination will be performed if indicated. NormalAvita Health System Galion HospitalComment on above:Performed By: #### ERUR #### [facility] [address] [place] [address] Dr. Isaiah NevesGlucose Ql (U)NegativeNormalNEGATIVEAvita Health System Galion HospitalComment on above:Performed By: #### ERUR #### [facility] [address] [place] [address] Dr. Isaiah NevesHemoglobin Ql (U)NegativeNormalNEGATIVEAvita Health System [facility] Hospital Comment on above:Performed By: #### ERUR #### [facility] [address] [place] [address] Dr. Isaiah NevesKetones Ql (U)15 mg/dlAbnormalNEGOhio State University [facility] Comment on above:Performed By: #### ERUR #### [facility] [address] [place] [address] Dr. Isaiah NevesLEUKOCYTESNegativeNormalNEGATIVEAvita Health System Galion HospitalComment on above:Performed By: #### ERUR #### [facility] [address] [place] [address] Dr. Isaiah NevesNitrite Ql (U)NegativeNormalNEGATIVEAvita Health System Galion HospitalComment on above:Performed By: #### ERUR #### [facility] [address] [place] [address] Dr. Isaiah NevespH (U)6.0 [pH]Normal5-9[facility] HospitalComment on above: Performed By: #### ERUR #### [facility] [address] [place] [address] Dr. Isaiah NevesSPEC GRAVITY1.149Fjxzcp5.005-<=1.025[facility] HospitalComment on above:Performed By: #### ERUR #### [facility] [address] [place] [address] Dr. Isaiah Peoples PROTEINTRACENormalNEGATIVE/ TRACEAvita Health System Galion HospitalComment on above:Performed By: #### ERUR #### [facility] [address] [place] [address] Dr. Isaiah WISE INDNOT INDICATEDNormalThe [facility] HospitalComment on above:Performed By: #### ERUR #### [facility] [address] [place] [address] Dr. Isaiah Bustamante Qn (U)4 {Julien'U}/dLAbnormal0.2 - 1.0The [facility] HospitalComment on above:Performed By: #### ERUR #### [facility] [address] [place] [address] Dr. Isaiah NevesLIPASEon [id number] [Catalytic activity/Vol]91.0 U/LNormal 73.0-393.0The [facility] HospitalComment on above:Performed By: #### CBC #### [facility] [address] [place] [address] Dr. Isaiah NevesPROF 14(COMP METB)on 30-01-6455Vjmevch [Mass/Vol]3.4 g/dLNormal 3.4-5.0The [facility] HospitalComment on above:Performed By: #### CBC #### [facility] [address] [place] [address] Dr. Isaiah NevesAlbumin/Globulin [Mass ratio]0.8 {ratio}NormalThe [facility] Montpelier HospitalComment on above:Performed By: #### CBC #### [facility] [address] [place] [address] Dr. Isaiah High [Catalytic activity/Vol]130 U/LCritically kakx96-922Dsk [facility] HospitalComment on above:Performed By: #### CBC #### [facility] [address] [place] [address] Dr. Isaiah Guajardo [Catalytic activity/Vol]104 U/LCritically lswr51-23Bkg [facility] HospitalComment on above:Performed By: #### CBC #### [facility] [address] [place] [address] Dr. Isaiah Leung gap [Moles/Vol]13.1 mmol/LNormalThe [facility] Comment on above:Performed By: #### CBC #### [facility] [address] [address] [address] Isaiah NevesAST [Catalytic activity/Vol]72 U/LCritically egox49-65Hln [facility] HospitalComment on above:Performed By: #### CBC #### [facility] [address] [address] [address] Isaiah NevesBilirubin [Mass/Vol]0.6 mg/dLNormal0.2-1.0The [facility] Comment on above:Performed By: #### CBC #### [facility] [address] [address] [address] Isaiah NevesCalcium [Mass/Vol]8.7 mg/dLNormal8.5-10.1The [facility] Comment on above:Performed By: #### CBC #### [facility] [address] [address] [address] Isaiah NevesChloride [Moles/Vol]99 mmol/UGgcvqb66-414Zev [facility] Comment on above:Performed By: #### CBC #### [facility] [address] [address] [address] Isaiah NevesCO2 [Moles/Vol]24.7 mmol/CUhqhze57.0-32.0The [facility] Comment on above:Performed By: #### CBC #### [facility] [address] [address] [address] Isaiah NevesCreatinine [Mass/Vol]0.66 mg/dLNormal0.55-1.02The [facility] HospitalComment on above:Performed By: #### CBC #### [facility] [address] [address] [address] Isaiah GoodrichGFR-AF SWAZI>60Normal>=60The [facility] HospitalComment on above:Performed By: #### CBC #### [facility] [address] [address] [address] Isaiah GoodrichGFR-NON AF SWAZI>60Normal>=60The [facility] HospitalComment on above:Performed By: #### CBC #### [facility] [address] [address] [address] Isaiah NevesGlobulin (S) [Mass/Vol]4.4 g/dLNormUniversity Hospitals Portage Medical CenterComment on above:Performed By: #### CBC #### [facility] [address] [address] [address] Isaiah NevesGlucose [Mass/Vol]95 mg/nDJapofz46-009Wuq [facility] Comment on above:Performed By: #### CBC #### [facility] [address] [address] [address] Isaiah NevesPotassium [Moles/Vol]3.8 mmol/LNormal3.5-5.1The [facility] Comment on above:Performed By: #### CBC #### [facility] [address] [address] [address] Isaiah NevesProtein [Mass/Vol]7.8 g/dLNormal6.4-8.2The [facility] Comment on above:Performed By: #### CBC #### [facility] [address] [address] [address] Isaiah NevesSodium [Moles/Vol]133 mmol/LCritically vuc360-087Ctg [facility] HospitalComment on above:Performed By: #### CBC #### [facility] [address] [address] [address] Isaiah NevesUrea nitrogen [Mass/Vol]13.0 mg/dLNormal7.0-18.0The [facility] HospitalComment on above:Performed By: #### CBC #### [facility] [address] [address] [address] Isaiah Bergman nitrogen/Creatinine [Mass ratio]19.7 mg/mgNoUniversity Hospitals Beachwood Medical CenterComment on above:Performed By: #### CBC #### [facility] [address] [address] [address] Isaiah NevesMAMMVeronica POST BIOPSY LEFTon [id number] POST BIOPSY LEFTPatient: DESHAWN BRAXTON Stephan Exam Date: 11/16/2021 : 1960 Gender:F Ordering : [facility] Admission #: [id number] Family : Order #: [id number] CLICK HERE TO VIEW EXAM RADIOLOGY REPORT [...] by: Maurice Melchor MD on 11/16/2021 at 11:06[facility] HospitalMG STEREO CORE NDL W CLIP LTon [id number] STEREO CORE NDL W CLIP LTPatient: DESHAWN BRAXTON Exam Date: 11/16/2021 : 1960 Gender:F Ordering : [facility] Admission #: [id number] Family : Order #: [id number] CLICK HERE TO VIEW EXAM This report [...] with the imaging findings. Final diagnosis fibrocystic neves . Evidence of neoplasm is not seen. Surgical pathology report faxed to the ordering provider and receipt verified with Subha by telephone Dictated by: Maurice Melchor MD on 11/25/2021 at 08:51 Approved by: Maurice Melchor MD on 11/25/2021 at 08:52[facility] HospitalMG STEREO CORE NDL W CLIP LTPatient: DESHAWN BRAXTON Exam Date: 11/16/2021 : 1960 Gender:F Ordering : [facility] ALEXIADennys [facility] Admission #: [id number] Family : Order #: [id number] CLICK HERE TO VIEW EXAM This report [...] by: Maurice Melchor MD on 11/25/2021 at 08:50[facility] HospitalMG MAMM LT DIAG FUon [id number] MAMM LT DIAG FUPatient: DESHAWN BRAXTON Exam Date: 11/04/2021 : 1960 Gender:F Ordering : [facility] ALEXIA [facility] Admission #: [id number] Family : Order #: [id number] CLICK HERE TO VIEW EXAM RADIOLOGY REPORT [...] Treatments None Family Cancers None LOCATION: [facility] BREAST COMPOSITION: Heterogeneously dense,which may obscure [...] by: Maurice Melchor MD on 11/04/2021 at 11:01[facility] HospitalUS BREAST LEFT LIMITEDon [id number] BREAST LEFT LIMITEDPatient: DESHAWN BRAXTON Exam Date: 11/04/2021 : 1960 Gender:F Ordering : [facility] Admission #: [id number] Family : Order #: [id number] CLICK HERE TO VIEW EXAM RADIOLOGY REPORT [...] Treatments None Family Cancers None LOCATION: [facility] BREAST COMPOSITION: Heterogeneously dense,which may obscure [...] by: Maurice Melchor MD on 11/04/2021 at 11:01[facility] HospitalMG MAMM SCREEN 3D SHARDA CADon [id number] MAMM SCREEN 3D SHARDA CADPatient: DESHAWN BRAXTON Exam Date: 10/19/2021 : 1960 Gender:F Ordering : [facility] Admission #: [id number] Family : Order #: [id number] CLICK HERE TO VIEW EXAM RADIOLOGY REPORT PROCEDURE: MAMMOGRAM SCREENING 3D BILATERAL CAD COMPARISON: MG MAMM SHARDA SCRN W CAD DIG, 05/06/2013. INDICATIONS: Screening for malignant neoplasm of breast Calculator Name NCI Breast Cancer Risk Assessment Tool 5 Year Breast Cancer Risk 1.10% Lifetime Breast Cancer Risk 5.00% Personal Breast Cancer No Personal Ovarian Cancer No Treatments None Family Cancers None LOCATION: [facility] BREAST COMPOSITION: Heterogeneously dense,which may obscure [...] by: Micaela Aquino M.D. on 10/20/2021 at 10:38[facility] HospitalOG PANEL 2: 30 to 65on 10-14-2021..NormalAvita Health [facility] Comment on above:Result Comment: Performed at: WBPerformed By: #### CBC #### [facility] [address] [place] [address] Dr. Isaiah Wright Gdln ACOG Nxdpkan60-95JuvmvvAcoUniversity Hospitals Beachwood Medical CenterComment on above:Performed By: #### CBC #### [facility] [address] [address] [address] Isaiah NevesDIAGNOSIS:CommentMercy Health Perrysburg HospitalComment on above: Result Comment: NEGATIVE FOR INTRAEPITHELIAL LESION OR MALIGNANCY. Performed at: WBPerformed By: #### CBC #### [facility] [address] [address] [address] Isaiah NevesHPV AptimaNegativeNormalNegativeAvita Health System Galion HospitalComment on above:Result Comment: This nucleic acid amplification test detects fourteen high-risk HPV types (16,18,31,33,35,39,45,51,52,56,58,59,66,68) without differentiation. Performed at: =GPerformed By: #### CBC #### [facility] [address] [place] [address] Dr. Isaiah NevesMethodology:CommentEast [facility] Hospital on above: Result Comment: This liquid based ThinPrep(R) pap test was screened with the use of an image guided system. Performed at: WBPerformed By: #### CBC #### [facility] [address] [place] [address] Dr. Isaiah NevesNote:CommentNoHenry County Hospital on above:Result Comment: The Pap smear is a screening test designed to aid in the detection of premalignant and malignant conditions of the uterine cervix. It is not a diagnostic procedure and should not be used as the sole means of detecting cervical cancer. Both false-positive and false-negative reports do occur. . Performed at: WBPerformed By: #### CBC #### [facility] [address] [place] [address] Dr. Isaiah NevesPerformed by:CommentNoHenry County Hospital on above: Result Comment: Deb Linda, [employer] (ASCP) Performed at: WBPerformed By: #### CBC #### [facility] [address] [place] [address] Dr. Isaiah NevesSpecimegail adequacy:CommentEast [facility] Regional Hospital on above:Result Comment: Satisfactory for evaluation. Performed at: WBPerformed By: #### CBC #### [facility] [address] [place] [address] Dr. Isaiah Harrell AUTO DIFFon [id number] #0.0 103/ulNormal0.0-0.1[facility] HospitalComment on above:Performed By: #### CBC #### [facility] [address] [place] [address] Dr. Isaiah NevesBasophils/100 WBC (Bld)0.7 %Normal0.2-2.0[facility] Comment on above:Performed By: #### CBC #### [facility] [address] [place] [address] Dr. Isaiah Lara #0.1 103/ulNormal0.0-0.7The [facility] HospitalComment on above: Performed By: #### CBC #### [facility] [address] [place] [address] Dr. Isaiah Goodrichosinophils/100 WBC (Bld)2.3 %Normal0.9-7.0The [facility] Comment on above:Performed By: #### CBC #### [facility] [address] [place] [address] Dr. Isaiah Goodrichrythrocyte distribution width (RBC) [Ratio]13.4 %Mtykxh84.0-15.0 The [facility] HospitalComment on above:Performed By: #### CBC #### [facility] [address] [place] [address] Dr. Isaiah NevesHematocrit (Bld) [Volume fraction]42.0 %Rouvqv78.0-48.0The [facility] HospitalComment on above:Performed By: #### CBC #### [facility] [address] [place] [address] Dr. Isaiah NevesHemoglobin (Bld) [Mass/Vol]13.3 g/rPDvbcij61.0-16.0The [facility] Centerment on above:Performed By: #### CBC #### [facility] [address] [place] [address] Dr. Isaiah Spangler #0.01 10e3/ulNormal0.00-0.03The [facility] HospitalComment on above:Performed By: #### CBC #### [facility] [address] [place] [address] Dr. Isaiah Spangler %0.2 %Normal0.0-0.5The [facility] HospitalComment on above: Performed By: #### CBC #### [facility] [address] [place] [address] Dr. Isaiah Pitt #2.1 103/ulNormal1.2-3.8The [facility] HospitalComment on above:Performed By: #### CBC #### [facility] [address] [place] [address] Dr. Isaiah Hopeprmphocytes/100 WBC (Bld)37.8 %Kvkofb46.5-60.0The [facility] HospitalComment on above:Performed By: #### CBC #### [facility] [address] [place] [address] Dr. Isaiah NavaUAL DIFF REQNONormalThe [facility] HospitalComment on above: Performed By: #### CBC #### [facility] [address] [place] [address] Dr. Isaiah Jaeger (RBC) [Entitic mass]30.9 kqRginkm15.7-34.0The [facility] HospitalComment on above:Performed By: #### CBC #### [facility] [address] [place] [address] Dr. Isaaih Jaeger (RBC) [Mass/Vol]31.7 g/wSGqvvef76.9-35.2The [facility] HospitalComment on above:Performed By: #### CBC #### [facility] [address] [place] [address] Dr. Isaiah Jaeger (RBC) [Entitic vol]97.4 nFWjfkdk94.0-99.0The [facility] HospitalComment on above:Performed By: #### CBC #### [facility] [address] [place] [address] Dr. Isaiah Garcia #0.4 103/ulNormal0.3-0.8The [facility] HospitalComment on above:Performed By: #### CBC #### [facility] [address] [place] [address] Dr. Isaiah Hurstocytes/100 WBC (Bld)7.0 %Normal1.7-12.0The [facility] Comment on above:Performed By: #### CBC #### [facility] [address] [place] [address] Dr. Isaiah Krueger #2.9 103/ulNormal1.4-6.5The [facility] HospitalComment on above:Performed By: #### CBC #### [facility] [address] [address] [address] Isaiah Wuutrophils/100 WBC (Bld)52.0 %Twfktv97.0-75.0[facility] on above:Performed By: #### CBC #### [facility] [address] [address] [address] Isaiah Holet mean volume (Bld) [Entitic vol]11.0 fLNormal9.5-13.5The [facility] on above:Performed By: #### CBC #### [facility] [address] [place] [address] Dr. Isaiah NevesPLT273 103/qlPjegcv792-622Tql [facility] on above: Performed By: #### CBC #### [facility] [address] [place] [address] Dr. Isaiah NevesRBC4.31 106/ulNormal4.20-5.40The [facility] on above:Performed By: #### CBC #### [facility] [address] [place] [address] Dr. Isaiah NevesWBC5.6 103/ulNormal4.0-11.0[facility] on above: Performed By: #### CBC #### [facility] [address] [place] [address] Dr. Isaiah NevesLIPID PROFILEon [id number]-HDL RATIO [facility] HospitalCommunson healthcare [facility] on above:Result Comment: 3.3 - 4.4 LOW RISK 4.4 - 7.1 AVERAGE RISK 7.1 - 11.0 MODERATE RISK >11.0 HIGH RISKPerformed By: #### URIC, TSH, LIPID, CMP #### [facility] [address] [place] [address] Dr. Isaiah NevesCholesterol [Mass/Vol]238 mg/dLCritically high<=200The [facility] on above:Performed By: #### URIC, TSH, LIPID, CMP #### [facility] [address] [place] [address] Dr. Isaiah Houstonesterol in HDL [Mass/Vol]84 mg/dLCritically ndwd39-10NeuMercy Health Willard Hospital on above:Performed By: #### URIC, TSH, LIPID, CMP #### [facility] [address] [address] [address] Isaiah NevesCholesterol in LDL [Mass/Vol]144.4 mg/dLNoUniversity Hospitals Beachwood Medical CenterComment on above:Performed By: #### URIC, TSH, LIPID, CMP #### [facility] [address] [address] [address] Isaiah Houstonesterluan.total/Cholesterol in HDL [Mass ratio]2.8 {ratio} NormalThe [facility] HospitalCommunson healthcare [facility] hospital on above:Performed By: #### URIC, TSH, LIPID, CMP #### [facility] [address] [address] [address] Isaiah Escobedo NORMAL> or = 60 mg/dl - LOW CARDIOVASCULAR RISK <40 mg/dl - HIGH CARDIOVASCULAR RISKNoUniversity Hospitals Beachwood Medical CenterComment on above:Performed By: #### URIC, TSH, LIPID, CMP #### [facility] [address] [address] [address] Isaiah Horton CALC NORMALSEE BELOWMercy Health Perrysburg HospitalComment on above:Result Comment: <100 mg/dl OPTIMAL 100 - 129 mg/dl NEAR OR ABOVE OPTIMAL 130 - 159 mg/dl BORDERLINE HIGH 160 - 189 mg/dl HIGH >190 mg/dl VERY HIGH Performed By: #### URIC, TSH, LIPID, CMP #### [facility] [address] [address] [address] Isaiah NevesTriglyceride [Mass/Vol]48 mg/dLNormal<=150[facility] Comment on above:Performed By: #### URIC, TSH, LIPID, CMP #### [facility] [address] [address] [address] Isaiah NevesVLDL CALC9.6 mg/dLNoUniversity Hospitals Beachwood Medical CenterComment on above: Performed By: #### URIC, TSH, LIPID, CMP #### [facility] [address] [address] [address] Isaiah Torres 14(COMP METB)on 51-44-4691Azqxxta [Mass/Vol]3.9 g/dLNormal 3.4-5.0The [facility] HospitalComment on above:Performed By: #### URIC, TSH, LIPID, CMP #### [facility] [address] [place] [address] Dr. Isaiah NevesAlbumin/Globulin [Mass ratio]1.0 {ratio}NormalThe [facility] HospitalComment on above:Performed By: #### URIC, TSH, LIPID, CMP #### [facility] [address] [place] [address] Dr. Isaiah High [Catalytic activity/Vol]77 U/HHoltge40-842Ffq [facility] HospitalComment on above:Performed By: #### URIC, TSH, LIPID, CMP #### [facility] [address] [place] [address] Dr. Isaiah Guajardo [Catalytic activity/Vol]35 U/IMpkdzk27-53Uyc [facility] HospitalComment on above:Performed By: #### URIC, TSH, LIPID, CMP #### [facility] [address] [place] [address] Dr. Isaiah Leung gap [Moles/Vol]13.9 mmol/LNormalThe [facility] Comment on above:Performed By: #### URIC, TSH, LIPID, CMP #### [facility] [address] [place] [address] Dr. Isaiah Vanegas [Catalytic activity/Vol]25 U/UBhkrsh34-58Exa [facility] Medical Centerment on above:Performed By: #### URIC, TSH, LIPID, CMP #### [facility] [address] [place] [address] Dr. Isaiah NevesBilirubin [Mass/Vol]0.6 mg/dLNormal0.2-1.0The [facility] Comment on above:Performed By: #### URIC, TSH, LIPID, CMP #### [facility] [address] [place] [address] Dr. Isaiah NevesCalcium [Mass/Vol]8.9 mg/dLNormal8.5-10.1The [facility] Comment on above:Performed By: #### URIC, TSH, LIPID, CMP #### [facility] [address] [address] [address] Isaiah NevesChloride [Moles/Vol]102 mmol/MAckiwp26-167Kts [facility] Comment on above:Performed By: #### URIC, TSH, LIPID, CMP #### [facility] [address] [address] [address] Isaiah NevesCO2 [Moles/Vol]26.1 mmol/TFbfela91.0-32.0The [facility] Comment on above:Performed By: #### URIC, TSH, LIPID, CMP #### [facility] [address] [place] [address] Dr. Isaiah NevesCreatinine [Mass/Vol]0.67 mg/dLNormal0.55-1.02The [facility] HospitalComment on above:Performed By: #### URIC, TSH, LIPID, CMP #### [facility] [address] [place] [address] Dr. Isaiah GoodrichGFR-AF SWAZI>60Normal>=60The [facility] HospitalComment on above:Performed By: #### URIC, TSH, LIPID, CMP #### [facility] [address] [place] [address] Dr. Isaiah GoodrichGFR-NON AF SWAZI>60Normal>=60The [facility] HospitalComment on above:Performed By: #### URIC, TSH, LIPID, CMP #### [facility] [address] [place] [address] Dr. Isaiah NevesGlobulin (S) [Mass/Vol]3.9 g/dLNormalThe [facility] HospitalComment on above:Performed By: #### URIC, TSH, LIPID, CMP #### [facility] [address] [place] [address] Dr. Isaiah NevesGlucose [Mass/Vol]99 mg/pYXcbrbx09-574Rel [facility] Comment on above:Performed By: #### URIC, TSH, LIPID, CMP #### [facility] [address] [address] [address] Isaiah NevesPotassium [Moles/Vol]4.0 mmol/LNormal3.5-5.1The [facility] Comment on above:Performed By: #### URIC, TSH, LIPID, CMP #### [facility] [address] [place] [address] Dr. Isaiah NevesProtein [Mass/Vol]7.8 g/dLNormal6.4-8.2The [facility] Comment on above:Performed By: #### URIC, TSH, LIPID, CMP #### [facility] [address] [place] [address] Dr. Isaiah Leonardodium [Moles/Vol]138 mmol/LBytcko113-956Kmk [facility] Comment on above:Performed By: #### URIC, TSH, LIPID, CMP #### [facility] [address] [place] [address] Dr. Isaiah NevesUrea nitrogen [Mass/Vol]15.0 mg/dLNormal7.0-18.0[facility] HospitalComment on above:Performed By: #### URIC, TSH, LIPID, CMP #### [facility] [address] [place] [address] Dr. Isaiah Bergman nitrogen/Creatinine [Mass ratio]22.4 mg/mgNoUniversity Hospitals Beachwood Medical CenterComment on above:Performed By: #### URIC, TSH, LIPID, CMP #### [facility] [address] [place] [address] Dr. Isaiah Torres 20-88-0682RIU7.900 uIU/mLCritically high0.358-3.740Av[facility] HospitalComment on above:Performed By: #### URIC, TSH, LIPID, CMP #### [facility] [address] [place] [address] Dr. Isaiah LUCIA BELOWMercy Health Perrysburg HospitalComment on above: Result Comment: <0.34 UIU/ml HYPERTHYROID 0.34-5.60 UIU/ml EUTHYROID >5.60 UIU/ml HYPOTHYROIDPerformed By: #### URIC, TSH, LIPID, CMP #### [facility] [address] [address] [address] Isaiah Peoples RANDOM W/MICROSCOPICon 32-77-1919QPJIMARDXFNEROlumahflZURK SEENAvita Health System Galion HospitalComment on above:Performed By: #### CBC #### [facility] [address] [address] [address] Isaiah NevesBilirubin Ql (U)NegativeNormalNEGATIVESelect Medical Specialty [facility] on above:Performed By: #### CBC #### [facility] [address] [address] [address] Isaiah NevesCASTSEENAbnormalNONE SEENAvita Health System Galion HospitalComment on above: Performed By: #### CBC #### [facility] [address] [address] [address] Isaiah NevesClarity (U)CLEARNormalCLEARAvita Health System Galion HospitalComment on above: Performed By: #### CBC #### [facility] [address] [address] [address] Isaiah NevesColor (U)YELLOWNormalYELLOWAvita Health System Galion HospitalComment on above: Performed By: #### CBC #### [facility] [address] [address] [address] Isaiah NevesCrystals LM Nom (Urine sed)NONE SEENNormalNONE SEENAvita Health System Galion HospitalComment on above:Performed By: #### CBC #### [facility] [address] [address] [address] Colon ChangEpithelial cells LM Ql (Urine sed)RARENormalNONE SEEN /RAREAvita Health System Galion HospitalComment on above:Performed By: #### CBC #### [facility] [address] [address] [address] Isaiah NevesGlucose Ql (U)NegativeNormalNEGATIVEAvita Health System Galion HospitalComment on above:Performed By: #### CBC #### [facility] [facility] [address] [address] [address] Isaiah NevesHemoglobin Ql (U)NegativeNormalNEGATIVEAvita Health System Galion Hospital Comment on above:Performed By: #### CBC #### [facility] [address] [address] [address] Isaiah NevesHYALINE CASTRARENormalThe [facility]ier HospitalComment on above: Performed By: #### CBC #### [facility] [address] [address] [address] Isaiah Carreraones Ql (U)NegativeNormalNEGATIVEAvita Health System Galion HospitalComment on above:Performed By: #### CBC #### [facility] [address] [address] [address] Isaiah NevesLEUKOCYTESNegativeNormalNEGATIVEThe [facility] HospitalComment on above:Performed By: #### CBC #### [facility] [address] [address] [address] Isaiah NevesMUCOUSSMALLAbnormalNONE SEENAvita Health System Galion HospitalComment on above:Performed By: #### CBC #### [facility] [address] [address] [address] Isaiah Mazariegostrite Ql (U)NegativeNormalNEGATIVEAvita Health System Galion HospitalComment on above:Performed By: #### CBC #### [facility] [address] [address] [address] Isaiah NevespH (U)6.0 [pH]Normal5-9[facility] HospitalComment on above: Performed By: #### CBC #### [facility] [address] [address] [address] Isaiah NevesRBCNONE SEENAbnormal0-2The [facility] HospitalComment on above: Performed By: #### CBC #### [facility] [address] [address] [address] Isaiah NevesSPEC GRAVITY1.757Jdehun7.005-<=1.025The [facility] HospitalComment on above:Performed By: #### CBC #### [facility] [address] [address] [address] Isaiah NevesUA PROTEINNegativeNormalNEGATIVE/ TRACEThe [facility] Comment on above:Performed By: #### CBC #### [facility] [address] [address] [address] Isaiah NevesUrobilinogen Qn (U)0.2 {Julien'U}/dLNormal0.2 - 1.0The [facility] HospitalComment on above:Performed By: #### CBC #### [facility] [address] [address] [address] Isaiah NevesWBC0-2AbnormalNONE SEENThe [facility] HospitalComment on above: Performed By: #### CBC #### [facility] [address] [place] [address] Dr. Isaiah NevesURIC ACID SERUMon [id number] [Mass/Vol]5.9 mg/dLNormal 2.6-6.0The [facility] HospitalComment on above:Performed By: #### URIC, TSH, LIPID, CMP #### [facility] [address] [place] [address] Dr. Isaiah NevesLipid Profileon 08-11-1732Zzubbhmybse [Mass/Vol]257 mg/dLHigh<[address] John Medical CenterComment on above:Result Comment: Cholesterol Guidelines: <200 Desirable 200-240 Borderline >240 UndesirablePerformed By: #### CDP, LIP, CMPX #### [facility] [address] [place] [address] [place] [address] Software Applications Developer: Isael Riojas, CLAREholesterol in HDL [Mass/Vol]88 mg/dLNormal>[address] [facility] CenterCommunson healthcare grayling hospital on above:Result Comment: HDL Guidelines: <40 Undesirable 40-59 Borderline >59 DesirablePerformed By: #### CDP, LIP, CMPX #### [facility] [address] [place] [address] Software Applications Developer: CLARE Spragueholesterol in LDL [Mass/Vol]158 mg/dLHigh0-[address] [facility] Medical CenterCommunson healthcare grayling hospital on above:Result Comment: LDL Guidelines: <100 Desirable 100-129 Near to/above Desirable 130-159 Borderline >159 Undesirable Direct (measured) LDL and calculated LDL are not interchangeable tests.Performed By: #### CDP, LIP, CMPX #### [facility] [address] [place], [place] [id number] Software Applications Developer: Kathryn Spraguestkaitlynn.total/Cholesterol in HDL [Mass ratio] 2.9 {ratio}Normal<5Mercy Veblen HospitalComment on above:Performed By: #### CDP, LIP, CMPX #### [facility] [address] [place], [place] [id number] Software Applications Developer: Isael Riojas MDTriglyceride [Mass/Vol]54 mg/dLNormal<150Mer[facility] Bristol HospitalComment on above:Result Comment: Triglyceride Guidelines: <150 Desirable 150-199 Borderline 200-499 High >499 Very high Based on AHA Guidelines for fasting triglyceride, February 2012.Performed By: #### CDP, LIP, CMPX #### [address] [place], [place] [id number] Software Applications Developer: CLARE Spragueholesterol in VLDL [Mass/Vol]NOT REPORTEDNormal 1-30Mercy Bristol HospitalComment on above:Performed By: #### CDP, LIP, CMPX #### [facility] [address] [place] [address] Software Applications Developer: Isael Riojas [facility] DIGITAL SCREEN W OR WO CAD BILATERALon [id number] DIGITAL SCREEN W OR WO CAD BILATERALEXAMINATION: [...] for developing breast cancer is 25.6%. The [place] [employer] considers women with a 20% [...] strategies. Assistance, if requested, is available through [facility]'s High-Risk Breast Program at [phone] or by placing an [facility] Ambulatory referral to the High-Risk Breast Clinic. BIRADS: BIRADS - CATEGORY 1 Negative, no evidence of malignancy. Normal interval follow-up is recommended in 12 months. OVERALL ASSESSMENT - NEGATIVE A letter of notification will be sent to the patient regarding the results. The [employer] recommends annual mammograms for women 40 years and older. Interpreted by: Momo Darby MD Signed by: Momo Darby MD 01/30/19 Final resultNormalDunlap Memorial Hospital w/reflex to FT4on [id number] Qn 13.09 m[IU]/LHigh0.30-5.00[facility] John Medical CenterComment on above:Performed By: #### JACQUELINE JAOSN, CMPX #### [facility] [address] [place] [address] Software Applications Developer: Isael Riojas MDThyroxine, Freeon [id number], Free0.87 ng/dLLow0.93-1.70[facility] John Medical CenterComment on above:Performed By: #### CASIE LIP, CMPX #### [facility] [address] [place] [address] Software Applications Developer: LYDIA SpragueR CHEST (2 VW)on [id number] CHEST (2 VW) EXAMINATION: TWO XRAY VIEWS [...] Signed by: Andrey Sin MD 01/30/19 Final resultNoUniversity Hospitals Cleveland Medical Center Auto Differentialon 01-04-2019 Basophils (Bld) [#/Vol]0.05 10*3/[facility] [place], KYBasophils/100 WBC (Bld)1 %0 - 2 %[facility], KYDifferential TypeNOT REPORTEDKettering Health [facility] [place], [place] Eosinophils (Bld) [#/Vol]0.17 10*3/[facility] [place], KYEosinophils/100 WBC (Bld)3 %1 - 4 %[facility]- [place], KYErythrocyte distribution width (RBC) [Ratio] 12.9 %11.8 - 14.4 %[facility], KYHematocrit (Bld) [Volume fraction]43.1 % 36.3 - 47.1 %[facility], KYHemoglobin (Bld) [Mass/Vol]14.5 g/dL11.9 - 15.1 g/dLCoshocton Regional Medical Center, KYImmature granulocytes (Bld) [#/Vol]0 %0[facility] [place], KYImmature granulocytes (Bld) [#/Vol]10*3/[facility] [place], KYLymphocytes (Bld) [#/Vol]2.19 10*3/[facility] [place], KYLymphocytes/100 WBC (Bld)38 %24 - 43 %[facility], KYMCH (RBC) [Entitic mass]32.7 pg25.2 - 33.5 pgKettering Health – Soin Medical [facility] [place], KYMCHC (RBC) [Mass/Vol]33.6 g/dL28.4 - 34.8 g/dLChillicothe Va [facility]- [place], [place] MCV (RBC) [Entitic vol]97.1 fL82.6 - 102.9 fLCoshocton Regional Medical Center, KYMonocytes (Bld) [#/Vol]0.37 10*3/[facility] [place], KYMonocytes/100 WBC (Bld)7 %3 - 12 %[facility], MANJINDERPlatelet mean volume (Bld) [Entitic vol]9.6 fL8.1 - 13.5 fLCoshocton Regional Medical Center, KYPlatelets (Bld) [#/Vol]NOT REPORTEDFancy Gap, KYPlatelets (Bld) [#/Vol]279 10*3/uLCoshocton Regional Medical Center, VTRBC (Bld) [#/Vol]4.44 10*6/uL3.95 - 5.11 m/[facility], VTRBC morphology finding Nom (Bld)NOT REPORTEDCoshocton [facility], VTSegmented neutrophils/100 WBC (Bld)51 %36 - 65 %[facility], MANJINDERSegs Absolute2.92[facility], VTWBC (Bld) [#/Vol]5.7 10*3/uLCoshocton Regional Medical Center, VTWBC (Bld) [#/Vol]0.0 10*3/uL0.0 per 100 WBCCoshocton Regional Medical Center, KYWBC MorphologyNOT REPORTEDCoshocton [facility], VTCBC with Diffon [id number]. Basophil0.05 k/uLNormal0.00-0.20[facility] HospitalComment on above:Performed By: #### CDP, LIP, CMPX #### [address] [place] [address] Software Applications Developer: Lázaro Sprague.Imm.Granulocyte<0.58Toflag0.00-0.30[facility] HospitalComment on above:Performed By: #### CDP, LIP, CMPX #### [address] [place] [id number] Software Applications Developer: Lázaro Sprague.Neutrophil (Seg)2.92 k/uLNormal1.50-8.10[facility] HospitalComment on above:Performed By: #### CDP, LIP, CMPX #### [address] [place] [phone] Software Applications Developer: Isael Shine, MDBasophils/100 WBC (Bld)1 %Normal0-2Mer[facility] Veblen HospitalComment on above:Performed By: #### CDP, LIP, CMPX #### [address] [place] [address] Software Applications Developer: Isael Riojas MDEosinophils (Bld) [#/Vol]0.17 10*3/uLNormal 0.00-0.44MerWVUMedicine Barnesville Hospital HospitalComment on above:Performed By: #### CDP, LIP, CMPX #### [address] [place] [address] Software Applications Developer: JESSE Spragueosinophils/100 WBC (Bld)3 %Normal1-4[facility] HospitalComment on above:Performed By: #### CDP, LIP, CMPX #### [address] [place] [address] Software Applications Developer: Isael Riojas MDErythrocyte distribution width (RBC) [Ratio]12.9 %Poxlvq53.8-14.4[facility] HospitalComment on above:Performed By: #### CDP, LIP, CMPX #### [address] [place] [address] Software Applications Developer: Isael Riojas MDHematocrit (Bld) [Volume fraction]43.1 %Normal 36.3-47.1Mer[facility] Veblen HospitalComment on above:Performed By: #### CDP, LIP, CMPX #### [address] [place] [address] Software Applications Developer: Isael Riojas MDHemoglobin (Bld) [Mass/Vol]14.5 g/dLNormal 11.9-15.1Mer[facility]bl[facility] HospitalComment on above:Performed By: #### CDP, LIP, CMPX #### [address] [place], [facility]83 Software Applications Developer: Isael Riojas MDImmature granulocytes (Bld) [#/Vol]0 %Normal[address] John Medical CenterComment on above:Performed By: #### CDP, LIP, CMPX #### [address] [place], [place] [id number] Software Applications Developer: Akbar Spraguemphocytes (Bld) [#/Vol]2.19 10*3/uLNormal 1.10-3.70[facility] HospitalComment on above:Performed By: #### CDP, LIP, CMPX #### [address] [place] [address] Software Applications Developer: Alejandrina Spraguehocytes/100 WBC (Bld)38 %Exjhhp43-82Bqxpn [facility] HospitalComment on above:Performed By: #### CDP, LIP, CMPX #### [address] [place], [facility]83 Software Applications Developer: KATHY Sprague (RBC) [Entitic mass]32.7 ykFfowif57.2-33.5 [facility] HospitalComment on above:Performed By: #### CDP, LIP, CMPX #### [address] [place] [address] Software Applications Developer: KATHY SpragueC (RBC) [Mass/Vol]33.6 g/jMQyadpq24.4-34.8 [facility] HospitalComment on above:Performed By: #### CDP, LIP, CMPX #### [address] [place], [place] [id number] Software Applications Developer: ROHIT Sprague (RBC) [Entitic vol]97.1 gPQuapgp37.6-102.9 [facility] HospitalComment on above:Performed By: #### CDP, LIP, CMPX #### [address] [place], [facility]83 Software Applications Developer: BETZY Spragueonocytes (Bld) [#/Vol]0.37 10*3/uLNormal 0.10-1.20[facility] HospitalComment on above:Performed By: #### CDP, LIP, CMPX #### [address] [place], [facility]83 Software Applications Developer: BETZY Spragueonocytes/100 WBC (Bld)7 %Normal3-12[facility] HospitalComment on above:Performed By: #### CDP, LIP, CMPX #### [address] [place] [address] Software Applications Developer: Dung Sprague (Seg)51 %Fsfiop01-21Maxkz [facility] HospitalComment on above:Performed By: #### CDP, LIP, CMPX #### [address] [place], [place] [address] Software Applications Developer: TUTU Sprague Automated0.0 per 100 WBCNormal0.0[facility] HospitalComment on above:Performed By: #### CDP, LIP, CMPX #### [address] [place] [address] Software Applications Developer: Yesenia Sprague mean volume (Bld) [Entitic vol]9.6 fL Normal8.1-13.5[facility] John Medical CenterComment on above:Performed By: #### CDP, LIP, CMPX #### [address] [place], [facility]83 Software Applications Developer: SHERI Spraguelatelets (Bld) [#/Vol]279 10*3/mPYmhdja561-837 [facility] HospitalComment on above:Performed By: #### CDP, LIP, CMPX #### [address] [place], [facility]83 Software Applications Developer: HERB Sprague (Bld) [#/Vol]4.44 10*6/uLNormal3.95-5.11[facility]bl[facility] HospitalComment on above:Performed By: #### CDP, LIP, CMPX #### [facility] Lab [address] [place] [address] Software Applications Developer: CORY Sprague (Bld) [#/Vol]5.7 10*3/uLNormal3.5-11.3[facility] HospitalComment on above:Performed By: #### CDP, LIP, CMPX #### [facility] [address] [place] [address] Software Applications Developer: Cora Sprague PerformedNOT REPORTEDNormalMercy Veblen HospitalComment on above:Performed By: #### CDP, LIP, CMPX #### [address] [place] [address] Software Applications Developer: Laura Spraguetelets (d) [#/Vol]NOT REPORTEDNormalMercy Veblen HospitalComment on above:Performed By: #### CDP, LIP, CMPX #### [facility] [address] [place] [address] Software Applications Developer: HERB Sprague morphology finding Nom (Bld)NOT REPORTED NormalMercy Veblen HospitalComment on above:Performed By: #### CDP, LIP, CMPX #### [facility] [address] [place] [address] Software Applications Developer: CORY Sprgaue MorphologyNOT REPORTEDNormalMercy Veblen HospitalComment on above:Performed By: #### CDP, LIP, CMPX #### [facility] [address] [place], [place] [id number] Software Applications Developer: CLARE Spragueomp Metabolic Pr/rfx MGon [id number] [Catalytic activity/Vol]29 U/LNormal<32[facility] HospitalComment on above: Performed By: #### CDP, LIP, CMPX #### [facility] [address] [place], [place] [address] Software Applications Developer: Isael Riojas MD(cont.)[facility] HospitalComment on above:Result Comment: Average GFR for 50-59 years old: 93 mL/min/1.73sq m Chronic Kidney Disease: <60 mL/min/1.73sq m Kidney failure: <15 mL/min/1.73sq m eGFR calculated using average adult body mass. Additional eGFR calculator available at: http://www.[employer]/multiple_crcl_2012.htmPerformed By: #### CDP, LIP, CMPX #### [address] [place], [facility]83 Software Applications Developer: Isael Riojas MDAlbumin [Mass/Vol]4.4 g/dLNormal3.5-5.2MMercy Health Allen HospitalComment on above:Performed By: #### CDP, LIP, CMPX #### [address] [place], [facility]83 Software Applications Developer: Isael Riojas MDAlbumin/Globulin [Mass ratio]1.3 {ratio}Normal 1.0-2.5[facility] John Medical CenterComment on above:Performed By: #### CDP, LIP, CMPX #### [address] [place], [facility]83 Software Applications Developer: Karma Spraguekaline Phos80 U/ZLwhnmt47-967UdowxUniversity Hospitals St. John Medical CenterComment on above:Performed By: #### CDP, LIP, CMPX #### [address] [place] [address] Software Applications Developer: Isael Riojas MDALT [Catalytic activity/Vol]22 U/LNormal5-33[facility] John Medical CenterComment on above:Performed By: #### CDP, LIP, CMPX #### [facility] [address] [place] [address] Software Applications Developer: Isael Riojas MDAnion gap [Moles/Vol]14 mmol/LNormal9-17[facility] John Medical CenterComment on above:Performed By: #### CDP, LIP, CMPX #### [address] [place], [place] [id number] Software Applications Developer: Isael Riojas MDBilirubin Ql (U)0.25 mg/dLLow0.3-1.2MercProMedica Toledo Hospital HospitalComment on above:Performed By: #### CDP, LIP, CMPX #### [address] [place] [address] Software Applications Developer: Isael Riojas MDBUN/CRE Cvxvf44Bhfzxf9-33Jtzln [facility] Comment on above:Performed By: #### CDP, LIP, CMPX #### [address] [place] [address] Software Applications Developer: CLARE Spraguealcium [Mass/Vol]9.3 mg/dLNormal8.6-10.4[facility] John Medical CenterComment on above:Performed By: #### CDP, LIP, CMPX #### [address] [place] [address] Software Applications Developer: CLARE Spraguehloride [Moles/Vol]97 mmol/JUrk96-626Xdfcu [facility] HospitalComment on above:Performed By: #### CDP, LIP, CMPX #### [address] [place] [address] Software Applications Developer: CLARE SpragueO2 [Moles/Vol]24 mmol/OJeiadb89-93Vtgzg [facility] HospitalComment on above:Performed By: #### CDP, LIP, CMPX #### [address] [place], [place] [address]83 Software Applications Developer: CLARE Spraguereatinine [Mass/Vol]0.59 mg/dLNormal0.50-0.90 [facility] HospitalComment on above:Performed By: #### CDP, LIP, CMPX #### [address] [place] [address] Software Applications Developer: Isael Riojas MDGFR, Amer>60Normal>60MerWVUMedicine [facility] Hospital Comment on above:Performed By: #### CDP, LIP, CMPX #### [address] [place] [address] Software Applications Developer: CASI Sprague,non Amer>60Normal>60[facility] HospitalComment on above:Performed By: #### CDP, LIP, CMPX #### [address] [place], [place] [id number] Software Applications Developer: Isael Riojas MDGlucose [Mass/Vol]102 mg/xWNcvt39-29Hwlbm Veblen HospitalComment on above:Performed By: #### CDP, LIP, CMPX #### [address] [place], [place] [id number] Software Applications Developer: Isael Riojas MDPotassium [Moles/Vol]4.9 mmol/LNormal3.7-5.3[facility] HospitalComment on above:Performed By: #### CDP, LIP, CMPX #### [address] [place] [address] Software Applications Developer: Isael Riojas, MDProtein [Mass/Vol]7.9 g/dLNormal6.4-8.3[facility] HospitalComment on above:Performed By: #### CDP, LIP, CMPX #### [address] [place] [address] Software Applications Developer: Isael Riojas MDSodium [Moles/Vol]135 mmol/FGyydcw201-942Cljwq [facility] HospitalComment on above:Performed By: #### CDP, LIP, CMPX #### [facility] [address] [place] [address] Software Applications Developer: Isael Riojas [facility] – MOOREtaging:[facility] HospitalComment on above:Result Comment: Stage 1: Some kidney damage normal GFR Stage 2: Mild kidney damage GFR 60-89 Stage 3: Moderate kidney damage GFR 30-59 Stage 4: Severe kidney damage GFR 15-29 Stage 5: Severe kidney damage GFR <15 ESRD - chronic treatment by dialysis or transplantPerformed By: #### CDP, LIP, CMPX #### [facility] [address] [place] [address] Software Applications Developer: Isael Riojas MDUrea nitrogen [Mass/Vol]12 mg/dLNormal6-20[facility] John Medical CenterComment on above:Performed By: #### CDP, LIP, CMPX #### [facility] [address] [place] [address] Software Applications Developer: Isael Riojas [facility] – ADAomprehensive Metabolic Panel w/ Reflex to MGon [id number] [Mass/Vol]4.4 g/dL3.5 - 5.2 g/dLCoshocton Regional Medical Center, [place] Albumin/Globulin [Mass ratio]1.3 {ratio}[facility], KYALP [Catalytic activity/Vol]80 U/L35 - 104 U/[facility], KYALT [Catalytic activity/Vol] 22 U/L5 - 33 U/[facility], KYAnion gap [Moles/Vol]14 mmol/L9 - 17 mmol/L [facility], KYAST [Catalytic activity/Vol]29 U/L<32[facility], [place] Bilirubin Ql (U)0.25 mg/dLLow0.3 - 1.2 mg/dLCoshocton Regional Medical Center, KYBun/Cre Ratio20 [facility], KYCalcium [Mass/Vol]9.3 mg/dL8.6 - 10.4 mg/dLCoshocton Regional Medical Center, KYChloride [Moles/Vol]97 mmol/LLow98 - 107 mmol/LMSumma Health, KYCO2 [Moles/Vol]24 mmol/L20 - 31 mmol/[facility], KYCreatinine [Mass/Vol]0.59 mg/dL0.5 - 0.9 mg/dLCoshocton Regional Medical Center, KYGFR >60>60 mL/minCoshocton Regional Medical Center, KYGFR Non->60>60 mL/minCoshocton Regional Medical Center, KYGlucose [Mass/Vol]102 mg/sIVfvv13 - 99 mg/dLCoshocton Regional Medical Center, KYInterpretation and review of laboratory resultsAbnormalCoshocton Regional Medical Center, KYPotassium [Moles/Vol]4.9 mmol/L3.7 - 5.3 mmol/LMSumma Health, KYProtein [Mass/Vol]7.9 g/dL6.4 - 8.3 g/dLCoshocton Regional Medical Center, KYSodium [Moles/Vol]135 mmol/L135 - 144 mmol/[facility], KYUrea nitrogen [Mass/Vol]12 mg/dL6 - 20 mg/dLCoshocton Regional Medical Center, KYD- Dimer Teston [id number]-Dimer Test0.32 mg/L FEUNormal0.19-0.50[facility] John Medical CenterComment on above:Result Comment: Elevated levels of D [...] of 98%).Performed By: #### JOANA ROSARIO #### [facility] [address] [place] [address] Software Applications Developer: Isael Riojas, MDD-Dimer, Quantitativeon [id number]-Dimer, Quant 0.32[facility], KYComment on above: Elevated levels [...] PE (negative predictive value of 98%). Lipaseon 22-01-0130Jfcitg [Catalytic activity/Vol]41 U/DDfygra53-47OofzzUniversity Hospitals St[address] John Medical CenterComment on above:Performed By: #### CDP, LIP, CMPX #### [facility] [address] [place] [address] Software Applications Developer: Isael Riojas MDLipase [Catalytic activity/Vol]41 U/L13 - 60 U/L [facility], VTMetabolic Panelon 66-46-8646GGW/1.73 sq M predicted among non-blacks MDRD (S/P/Bld) [Vol rate/Area][facility], VTComment on above: Average GFR for 50-59 years old: 93 mL/min/1.73sq m Chronic Kidney Disease: <60 mL/min/1.73sq m Kidney failure: <15 mL/min/1.73sq m eGFR calculated using average adult body mass. Additional eGFR calculator available at: http://www.Unafinance/multiple_crcl_2012.htm Stage 1: Some kidney damage normal GFR Stage 2: Mild kidney damage GFR 60-89 Stage 3: Moderate kidney damage GFR 30-59 Stage 4: Severe kidney damage GFR 15-29 Stage 5: Severe kidney damage GFR <15 ESRD - chronic treatment by dialysis or transplant Microscopic Urinalysison 50-76-0202Vcnwxwzuv, UANOT REPORTEDOhioHealth [facility]field Hospital, KYBacteria, UATRACEAbnormFairfield Medical Center, KYCasts UANOT REPORTED/LPF [facility], KYCrystals UANOT REPORTEDNone /HPFCoshocton Regional Medical Center, [place] Epithelial Cells UA5 TO 10[facility], KYInterpretation and review of laboratory resultsAbnormSelect Medical [facility], [place], KYMucus, UANOT REPORTEDNonCleveland Clinic [facility], KYOther Observations UANOT REPORTEDNOT REQ.[facility], KYRBC (U) [#/Vol][facility] [place], KYRenal Epithelial, UrineNOT REPORTED0 /HPF [facility] Center, KYTrichomonas, UANOT REPORTEDNoneMeVeterans Health Administration, KYWBC, UA2 TO 5[facility], KYYeast, UANOT REPORTEDNoneMeVeterans Health Administration, [place]-[facility], KYTroponinon 07-50-8905Zhfnndeq I.cardiac [Mass/Vol]ng/mLNormal<0.[address] John Medical CenterComment on above:Result Comment: Troponin T results cannot be compared to Troponin-I results.Performed By: #### JOANA ROSARIO #### [facility] [address] [place] [address] Software Applications Developer: Nadine Sprague I.cardiac [Mass/Vol][facility]ansfield HospitalComment on above:Result Comment: Reference Range: <0.03 [...] for diagnosis.Performed By: #### JOANA ROSARIO #### [facility] [address] [place], [place] [id number] Software Applications Developer: Nadine Sprague I.cardiac [Mass/Vol]NOT REPORTEDNormal 0-14[facility]als St. John Medical CenterComment on above:Performed By: #### TROPSANJEEV FamE #### [facility] [address] [place], [place] [id number] Software Applications Developer: Nadine Sprague I.cardiac [Mass/Vol][facility], [place] Comment on above:Reference Range: [...] additional information for diagnosis. Troponin T.cardiac [Mass/Vol]ug/L<0.03 ng/mLFancy Gap, KYComment on above:Troponin T results cannot be compared to Troponin-I results.Troponin, High SensitivityNOT REPORTED0 - 14 ng/LMDuncan, KYUA w/Reflex Cultureon 66-60-3262Jxehbsrrmnz Acid,UrNegativeNormalNEGMerStamford HospitalComment on above:Performed By: #### UAX, UMICAO #### [facility] [address] [place], [facility]83 Software Applications Developer: Isael Riojas MDBilirubin, SemiQt,UrNegativeNormalNEGMerStamford HospitalComment on above:Performed By: #### UAX, UMICAO #### [facility] [address] [place], [facility]83 Software Applications Developer: CLARE Spragueolor (U)YELLOWNormalYMercy Health St. [facility] Hospital Comment on above:Performed By: #### UAX, UMICAO #### [address] [place], [facility]83 Software Applications Developer: Isael Riojas MDGlucose Ql (U)NegativeNormalNEGUniversity Hospitals St. John Medical CenterComment on above:Performed By: #### UAX, UMICAO #### [facility] [address] [place], [facility]83 Software Applications Developer: Isael Riojas MDHemoglobin, UrNegativeNormalNEGUniversity Hospitals St. John Medical CenterComment on above:Performed By: #### UAX, UMICAO #### [facility] [address] [place], [facility]83 Software Applications Developer: Isael Riojas MDLeukocyte esterase Test strip Ql (U)Negative NormalNEGUniversity Hospitals St. John Medical CenterComment on above:Performed By: #### UAX, UMICAO #### [facility] [address] [place], [place] [address]783 Software Applications Developer: Aminta Sprgaue,UrNegativeNormOhioHealth Pickerington Methodist Hospital Comment on above:Performed By: #### UAX, UMICAO #### [facility] [address] [place], [place] [id number] Software Applications Developer: Sheri SpragueH (U)7.5 [pH]Normal5.0-9.0[facility] Comment on above:Performed By: #### UAX, UMICAO #### [facility] [address] [place], [place] [id number] Software Applications Developer: SHERI Spraguerotein Ql (U)NegativeNormalDoctors HospitalComment on above:Performed By: #### UAX, UMICAO #### [facility] [address] [place], [place] 2417[address] Software Applications Developer: EVA Spraguepecific gravity (U) [Rel density]1.010Normal 1.010-1.020[facility] St. John Medical CenterComment on above:Performed By: #### UAX, UMICAO #### [facility] [address] [place], [place] 780[address]83 Software Applications Developer: TYRON SpragueurbidityCLEARNormalCLEARUniversity Hospitals St. John Medical Center Comment on above:Performed By: #### UAX, UMICAO #### [facility] [address] [place], [place] 54[address]783 Software Applications Developer: oTni Sprague,UrNormalNormalProMedica Flower HospitalComment on above:Performed By: #### UAX, UMICAO #### [facility] [address] [place], [place] 3334[address] Software Applications Developer: Sadia SpragueNOT REPORTEDMansfield Hospital Comment on above:Performed By: #### UAX, UMICAO #### [facility] [address] [place] [address] Software Applications Developer: Isael Riojas MDUrinalysis Reflex to Cultureon 01-04-2019 Bilirubin UrineNegativeNEGATIVEMercy Health- [place], KYColor, UAYELLOWYELLOWMercy Health- [place], KYGlucose, UrNegativeNEGATIVEMercy Health- [place], KYKetones Ql (U) NegativeNEGATIVEMercy Health- [place], KYLeukocyte esterase Test strip Ql (U)Negative NEGATIVEMercy Health- [place], KYNitrite, UrineNegativeNEGATIVEMercy Health- [place], [place] pH, UA7.5[facility]- [place], KYProtein (U) [Mass/Vol]NegativeNEGATIVEMercy Health- [place], KYSpecific Morven, UA1.010[facility]- [place], KYTurbidity UACLEARCLEARMercy Health- [place], KYUrinalysis CommentsNOT REPORTEDMercy Health- [place], KYUrine Hgb NegativeNEGATIVEMercy Health- [place], KYUrobilinogen, UrineNormalNormalMercy Health- [place], KYUrinalysis,Microon 01-04-2019-----NormalMercy Veblen HospitalComment on above:Performed By: #### UAX, UMICAO #### [facility] Lab [address] [place] [address] [place] [address] Software Applications Developer: Isael Riojas MDBacteria LM.HPF (Urine sed) [#/Area]TRACEAbnormal NONEMercy Veblen HospitalComment on above:Performed By: #### UAX, UMICAO #### [facility] [address] [place] [address] Software Applications Developer: Isael Riojas MDEpithelial cells LM.HPF (Urine sed) [#/Area]5 TO 18Ytduzv4-20Cwpkx Veblen HospitalComment on above:Performed By: #### UAX, UMICAO #### [facility] [address] [place] [address] Software Applications Developer: GINNA SpragueBC (U) [#/Vol]NoneNormal0-2[facility] Comment on above:Performed By: #### UAX, UMICAO #### [address] [place] [address] Software Applications Developer: Isael Riojas MDWBC (U) [#/Vol]2 TO 4Gciwhd0-4Xirzi Veblen HospitalComment on above:Performed By: #### UAX, UMICAO #### [address] [place], [place] [address] Software Applications Developer: Bernadette Sprague sediment LM Ql (Urine sed)NOT REPORTED NormalNONEMey Veblen HospitalComment on above:Performed By: #### UAX, UMICAO #### [address] [place] [address] Software Applications Developer: Beatriz Sprague LM.LPF (Urine sed) [#/Area]NOT REPORTED NormalMercy Veblen HospitalComment on above:Performed By: #### UAX, UMICAO #### [address] [place] [address] Software Applications Developer: Allison Sprague LM Nom (Urine sed)NOT REPORTEDNormalNONE [facility] HospitalComment on above:Performed By: #### UAX, UMICAO #### [address] [place], [place] [address] Software Applications Developer: Isael Riojas MDEpithelial, RenalNOT ZLVIDGZTPdzmts5Betwt Veblen HospitalComment on above:Performed By: #### UAX, UMICAO #### [address] [place] [address] Software Applications Developer: BETZY Spragueucus StrandsNOT REPORTEDNormalNONEMercy Veblen HospitalComment on above:Performed By: #### UAX, UMICAO #### [address] [place] [address] Software Applications Developer: Isael Riojas MDOther ObservationsNOT REPORTEDNormalNREQWayne Hospital HospitalComment on above:Performed By: #### UAX, UMICAO #### [facility] Lab [address] [place] [address] [place] [address] Software Applications Developer: Isael Riojas MDTrichomonasNOT REPORTEDNormalNONEMeNorth Mississippi Medical Center HospitalComment on above:Performed By: #### UAX, UMICAO #### [facility] [address] [place] [address] Software Applications Developer: Isael Riojas MDYeast LM Ql (Urine sed)NOT REPORTEDNormalNONE [facility] HospitalComment on above:Performed By: #### UAX, UMICAO #### [address] [place] [address] Software Applications Developer: Isael Riojas MDXR CHEST (2 VW)on 07-68-9630DW CHEST (2 VW) EXAMINATION: TWO XRAY VIEWS [...] Signed by: Momo Darby MD 01/04/[address] John Medical CenterXR CHEST STANDARD (2 VW)on 01-04-2019 EXAMINATION: TWO [...] obvious acute fracture. Included joints maintain anatomic alignment.[facility] MANJINDERMinimal airspace opacity in the posterior base of at least one lower lobe, favored to represent atelectasis or scarring over pneumonia or aspiration.[facility] CenterMiranda Mhpn Incoming Radiant Results From [employer] - 01/04/2019 8:22 AM EDT EXAMINATION: TWO [...] atelectasis or scarring over pneumonia or aspiration. [facility] MANJINDER Vital Signs Date TimeVital SignValuePerforming FdqapiyyzJimxouta09-94-8203 10:37-0500Body gzjozr011.1 Alina Loredo [employer] Work Phone: [phone] [place], [place] 1884411-11-2025 10:37-0500 Body mass index (BMI) [Ratio]34.9 kg/m2Alexia Loredo [employer] Work Phone: [phone] [place], [place] 3774811-11-2025 10:37-0500 Body sxlkymztlgc05.5 [degF]Alexia Gertrude [employer] Work Phone: [phone]-[facility]11-11-2025 10:37-0500 Body shuppk62.31 kgAlexia Loredo [employer] Work Phone: [phone]-[facility]11-11-2025 10:37-0500 Diastolic blood nskqdtij28 mm[Hg]Alexia Loredo [employer] Work Phone: [facility]11-11-2025 10:37-0500 Heart rate72 /Yimi Hiltonholz [employer] Work Phone: [facility]11-11-2025 10:37-0500 Respiratory rate18 /minAlexia Hiltonholz [employer] Work Phone: [facility]11-11-2025 10:37-0500 SaO2% (BldA) [Mass fraction]98 %Alexia Palomoz [employer] Work Phone: [facility]11-11-2025 10:37-0500 Systolic blood gqphnhag227 mm[Hg]Alexia Palomoz [employer] Work Phone: [facility]10-16-2019 15:00-0400 BP Rukyecetm43 mm[Hg][facility], SG68-49-9735 15:00-0400BP Bjorzuyp904 mm[Hg][facility], SL07-88-5676 15:00-0400Pulse (Heart Rate)74 /[facility], RU91-72-2809 15:00-0400Pulse Cungilgu29 %[facility], EY70-70-7703 15:00-0400Respiratory Rate16 /[facility], CC23-66-1112 14:52-0400Body Vxvxmxytmhm74 [degF][facility], XL56-50-4016 13:37-0400BMI (Body Mass Index)32.28 kg/t8ArbyvsUniversity Hospitals Health System, NG50-37-3980 13:37-0400Body uljqoa92.72 kgUniversity Hospitals Health System, UZ51-89-3697 13:37-9668Qrtzdp527.6 [facility], KR53-95-6158 09:05-0400BP Alwsrtgcp91 mm[Hg]Farhat WhitakerUniversity Hospitals E[facility], XB05-88-3265 09:05-0400BP Cwkajplh228 mm[Hg]Farhat JohnsonCoshocton Regional [facility], JX02-87-9014 09:05-0400Pulse (Heart Rate)64 /minFarhat [facility], LQ79-11-1101 09:05-0400Pulse Nzcgdtyv22 %Farhat [facility], TL33-66-2243 09:05-0400Respiratory Rate 16 /minFarhat [facility], HR83-97-8336 07:35-0400Body Oitywlicvia92.1 [degF]Farhat [facility], TO84-31-3880 07:35-0400Body .18 kg Farhat JohnsonCoshocton Regional [facility] Center, [place] Encounters Encounter DateEncounter TypeCare ProviderFacilityStart: 03-18-2025 End: 30-81-7611ktwddcubhuYuiu Jairo Lroedo [employer] Work Phone: -[facility] ClydeStart: 03-18-2025 End: 15-46-7884Ocgtgkq encounter procedureLisa Jairo Torreshjack [employer]-[facility] Work Phone: Start: 97-47-5183Zazqcac encounter procedureLisa Gertrude [employer] Work Phone: [facility]art: 90-76-2092Pox- patient / Non-visitLisa Jairo Torreshholaudra [employer]-[facility] Work Phone: Start: 05-25-2022 End: 25-17-0031yfyeppddguPB MICHAEL E GRILLISFacility:T7Bzbov: 05-23-2022 End: 94-67-9553oedrkfdrgbFW MICHAEL E GRILLISFacility:X7Hfneo: 03-28-2022 End: 06-02-8148Hzmlhxtohz and management of inpatientDR MOMO GOLDMAN Facility:F1Katnr: 11-16-2021 End: 20-39-6078ojyulityuyTT Maurice WestFacility:M0Ksijx: 11-04-2021 End: 39-02-6707kcranrynqtNA Maurice WestFacility:L3Uothf: 10-19-2021 End: 68-23-5032xmibbntxclUZC ALEXIA HILTONJACKFacility:A4Fvphw: 10-11-2021 End: 57-11-2125wzzsdxoyngNGM ALEXIA CELINEBIGGFacility:T7Vksgp: 15-71-6771Ruldxazvr for general adult medical examination without abnormal findingsCNP ALEXIA CELINEHarshaJACK [facility] HospitalStart: 09-29-2021 End: 02-68-7355eefhustauyLSS ALEXIA CELINEBIGGFacility:D4Ghrvm: 09-29-2021 End: 06-95-3584Hszvvhwcp for general adult medical examination without abnormal findingsCNP ALEXIA CELINEBIGGFacility:V6Klpde: 02-20-2019 End: 78-11-7835Kohgntp encounter procedureSCINDY [facility] Start: 02-20-2019 End: 05-75-8374Pmdzlcozsj hospital visit by Lilliam Gould Work Phone: mthz ORStart: 01-30-2019 End: 85-70-6702Gehimnb encounter [facility] HospitalVELIAM[facility] Start: 01-30-2019 End: 33-31-2960Bgyqpvb encounter [facility] Start: 01-04-2019 End: 03-95-9946Fepaqbbkk department patient visitSMADDY [facility] HospitalStart: 01-04-2019 End: 40-33-2907Awciaaifc department patient visitFarhat Johnson Work Phone: [facility] EDComment on above:Pneumonia due to organism (Primary Dx) Procedures DateProcedureProcedure DetailPerforming ClinicianStart: 84-33-2369JGXFQHPSD PATIENTSHAWN DEATSStart: 91-79-0492YUTSGI PERIPHERAL IVSHRELLN DEATSStart: 44-98-1710Xoxxnleac mammography bi 2-view breast inc cadOILVILLEN DEATSStart: 23-82-3337Ooirx of free thyroxineOILVILLEGail DEATSStart: 57-56-3782Mxjgv of thyroid stimulating hormone tshSHAWN DEATSStart: 32-73-2432Ehumc panelSHAWN DEATSStart: 95-19-2478Mxgofbhpjt exam chest 2 viewsSHAWN DEATSStart: 58-55-1150Cithkyhtyo microscopic onlySHAWN DEATSStart: 99-41-7124Qwqml dip stick/tablet rgnt auto w/o microscopySHAWN DEATSStart: 57-53-0046Exnrrijoum exam chest 2 viewsAWN DEATS Start: 56-89-3203Cuwrl of lipaseSHAWN DEATSStart: 78-66-9910Aysga of troponin quantitativeSHAWN DEATSStart: 34-64-6244Toyck count complete auto&auto difrntl wbcSHAWN DEATSStart: 66-36-2375Hhyers dgradj products d-dimer quantitativeSHAWN DEATSStart: 18-94-9417Alv routine ecg w/least 12 lds w/i&rSHAWN DEATSStart: 86-23-0232Fcvdnxiqmd microscopic onlyTyler Sandy Work Phone: Start: 40-43-1398Qyzkm dip stick/tablet rgnt auto w/o microscopyTyler Sandy Work Phone: Start: 16-61-9729Vptroaxlfx exam chest 2 viewsTyler Sandy Work Phone: Start: 98-86-3362Chfaf of lipaseTyler Sandy Work Phone: Start: 46-81-5337Prfch of troponin quantitativeTyler Sandy Work Phone: Start: 40-56-1555Oehrv count complete auto&auto difrntl wbcTyler Sandy Work Phone: Start: 87-16-6940Qsfjnc dgradj products d-dimer quantitativeTyler Sandy Work Phone: Start: 13-43-7436Gqr routine ecg w/least 12 lds w/i&r Farhat Sandy Work Phone: Plan of Treatment DateCare ActivityDetailAuthorStart: 64-86-5237Chdwk screenLipid screenCoshocton Regional Medical Center, KYStart: 50-65-9987Xhpydi cancer screenBreast cancer screenCoshocton Regional Medical Center, KYStart: 81-71-2553Cjota Cancer Screen FIT/FOBTColon Cancer Screen FIT/FOBTCoshocton Regional Medical Center, KYStart: 52-45-8882FER testingTSH testingCoshocton Regional Medical Center, KYStart: 09-88-4491Ylmsljsg cancer screenCervical cancer screenCoshocton Regional Medical Center, MANJINDERComment on above:Postponed from 09/27/1980 (Patient Refused)Start: 42-97-6610EVaT/Tdap/Td vaccine (1 - Tdap)DTaP/Tdap/Td vaccine (1 - Tdap)[facility] VTComment on above:Postponed from 09/27/1978 (Patient Refused)Start: 03-50-4910Gwfkkgbmn C screenHepatitis C [facility], MANJINDERComment on above:Postponed from 1959 (Patient Refused)Start: 94-66-0333ZPR screenHIV [facility], VTComment on above:Postponed from 09/27/1974 (Patient Refused)Start: 08-78-8736Jsgsauhx Vaccine (1 of 2)Shingles Vaccine (1 of 2)[facility], VTComment on above:Postponed from 09/27/2009 (Patient Refused) Start: 61-93-9198Okipwksyk vaccinationFlu vaccine (#1)[facility] CenterMANJINDER Comment on above:Postponed from 01/06/2019 (Unavailable)Start: 02-28-2019 End: 94-06-3088Opagzd Visit02/28/2019 Office Visit Primary Care Torrey Snow APRN - AGRICULTURAL PLOW OPERATOR [address] [place] [address] [phone] [facility] CenterfinStart: 01-30-2019 End: 71-26-9483Bagchbstzqf22/25/2019 Appointment [facility] Start: 01-17-2019 End: 61-46-7737Sasjat Visit01/17/2019 Office Visit Primary Care Torrey Snow APRN - AGRICULTURAL PLOW OPERATOR [address] [place] [address] [phone] [facility] Care [facility] Centerart: 80-15-2890Riiowlntq vaccinationFlu vaccine (#1) [facility]: 81-59-9237Sakbsf cancer screenBreast cancer screen [facility]: 28-93-6828Zfela cancer screen colonoscopyColon cancer screen colonoscopyKettering Health Behavior[facility] Medical Center: 86-68-2886Rjeoaxld Vaccine (1 of 2)Shingles Vaccine (1 of 2)[facility]: 80-40-0170Tkjemmlq screen Diabetes screenKettering Health Behavioral Medical Center: 73-85-5008Vnpbn screenLipid screen [facility]: 56-45-9923Zrnmggpr cancer screenCervical cancer screenKettering Health Behavioral Medical Center: 13-88-1956HQuS/Tdap/Td vaccine (1 - Tdap) DTaP/Tdap/Td vaccine (1 - Tdap)[facility]: 34-65-7386UFC screen HIV screenKettering Health Behavioral Medical Center: 85-91-3773Tsecqgivjudc 0-64 years Vaccine (1 of 1 - PPSV23)Pneumococcal 0-64 years Vaccine (1 of 1 - PPSV23)[facility]: 32-70-6038Szyxgllut C screenHepatitis C [place], [place] Comprehensive metabolic 2000 panel - Serum or PlasmaMedina HospitalEKG 12 LeadEKG 12 Lead ECG STAT 01/04/2019 7:38 AM EDTMDuncan, [place] MG Breast - bilateral ScreeningMedina HospitalXR Knee - left 3 ViewsMelbourne Regional Medical Center Payers DatePayer CategoryPayerPolicy [id number] [employer] - EXCHANGE xxxxxxxxxxxx 2018-Present [phone] [address], [place] [address]sicnccueqpzl [id number] [id number] 2.16.840.1.976029.[id number] 2.16.840.1.684435.3.57[id number] 2.16.840.1.544153.3.57[id number] 2.16.840.1.825889.3.57[id number] 2..840.1.456128.3.57[id number] 2.16.840.1.280186.3.57[id number] 2.840.1.867839.3.57[id number] 2.16.840.1.820021.3.57[id number] 2.16.840.1.875664.3.57[id number] 2..840.1.819969.3.57[id number] 2.16840.1.767778.3.57[id number] 2.16840.1.559832.3.57[id number] 2.16840.1.786793.3.57[id number] 2.16840.1.661747.3.579.2.593 [id number] [id number] Social History DateTypeDetailFacilityStart: 01-04-2019 End: 89-11-5572Ipbhnmt smoking status NHISFormer smokerK[facility]tering Health [facility] [place], [place] History of tobacco useCigarette SmokerCoshocton Regional Medical Center, KYSex Assigned At Not on fileCoshocton Regional Medical Center, KYStart: 14-30-4801Bsdkubl intakeYesMSumma Health, KYTobacco smoking status NHISUnknown if ever smokedAvita Health System Work Phone: SexFemale (finding)[facility] Start: 45-71-4535Zea Assigned At BirthFeC[facility] Clinic [facility] Evaluation note Note Date & TypeNoteFacilityEvaluation note* Diagnosis Onset Date Resolution Status Admit Date Elevated blood pressure reading acuteNovember 2024 10:24amEncounter for initial annual wellness visit (AWV) in Medicare patientacuteNovember 2024 10:24amEncounter for screening mammogram for malignant neoplasm of breastacuteNovember 2024 10:24am Epigastric painacuteNovember 2024 10:24amHiatal herniaacuteNovember 2024 10:24amKnee pain, leftacuteNovember 2024 10:24amMixed hyperlipidemia acuteNovember 2024 10:24am [facility] Work Phone: Reason for referral (narrative) Note Date & TypeNoteFacilityReason for referral (narrative)No reason for referral information availableAvita Health System Work Phone: Discharge Instructions * Attachments The following attachments cannot be sent through Care Everywhere. * Pneumonia (Ukrainian) * Chest Pain (Ukrainian) documented in this encounter* Instructions* Hayley Browning [...] RecordedPatient RepresentativeExplanationAdvance Directives and Living WillPower of X Ray Service Technician Advance Directive Response Recorded Date/ Time Advance [...] of colon SCREENING, COLON CANCER SCREENING Procedures AR COLON CA SCRN NOT HI RSK IND COLORECTAL CANCER SCREENING, NOT HIGH RISK Micaela Gould MD [address] [place] [address] [place] [address] [facility] INFORMATION SOURCE (unrecogn ized section and content) DATE CREATED AUTHOR 02/20/[address] [facility] DATE CREATED AUTHOR AUTHOR'S ORGANIZ ATION 05/26/2022 [facility] Care Teams (unrecognized sec tion and [...] BE BASED ON THE PRIMARY CLINICAL RECORDS. [facility]. provides no warranty or guarantee of the accuracy or completeness of information in this document.
--- OUTSIDE RECORDS SUMMARY | 2025-04-16 07:05 | XMS_ITS | Clinical Summary ---
Author Organization [facility] Address [address] [place] [address] Care Team Providers Care Information Technology Officer Name Role Phone Aakash Hoffmann MD Primary Care Provider [phone] Alexia Loredo NP Unavailable [phone] Alexia Loredo NP Unavailable [phone] Allergies No known active allergies Active Problems ProblemNoted DateDiagnosed DateEncounter for screening mammogram for malignant neoplasm of zywrhv5605/15/2023 Family History Medical HistoryRelationNameCommentsHypertensionFatherHypertensionMotherRelation NameStatusCommentsFatherMother Social History Tobacco UseTypesPacks/DayYears UsedDateSmoking Tobacco: Every DayCigarettes Tobacco Cessation:Ready to Q uit: Not Asked; Counseling Given: Not Answered Alcohol UseStandard Drinks/XgvlCwgrjlufKph98 (1 standard drink = 0.6 oz pure alcohol)CommentsUnknownSex and Gender InformationValueDate RecordedSex Assigned at BirthNot on fileLegal EyzCzdwcz02/14/2023 12:34 PM EDTGender IdentityNot on fileSexual OrientationNot on file Last Filed Vital Signs Vital SignReadingTime TakenCommentsBlood Sxgjcumj397/70005/10/2023 1:42 PM EST Lhjuq825405/10/2023 1:42 PM JAOKhzskrgxnzn74.6 ??C (97.8 ??F)05/10/2023 1:42 PM ESTRespiratory Phvo262405/10/2023 1:42 PM ESTOxygen Saturation--Inhaled Oxygen Concentration--Hdhapp56.5 kg (204 lb)05/10/2023 1:42 PM EDDBdfibj888.6 cm (5' 6 )05/10/2023 1:42 PM ESTBody Mass Index32.9301 1:42 PM EST Plan of Treatment Health MaintenanceDue DateLast DoneCommentsCT Gecjvdpvutrn60/23/1960FIT-DNA 1959FIT1959FOBT1959Medicare Annual Wellness (AWV)1960 Rqpccwdljrxsw90/23/1960Pneumococcal Vaccine: 65+ Years (1 of 2 - PCV)09/27/1978 HPV/Hldvcp0409/27/19893121Szddztbht27/06/202412/10/2022, 01/30/2019Cervical Cancer Eljiwynjx56/06/2025Pap Smear/2COVID-19 Vaccine ( season)504/11/2021, 03/18/2021, 06/08/2020, Additional history exists Influenza Vaccine (#1)/05/2021, 01/25/2020, 02/21/2019, Additional history vstoqqZugglzamhtf62/18/083270/, 3Colorectal Cancer Dfkemofzt60/18/2033 Procedures Procedure NamePriorityDate/TimeAssociated DiagnosisCommentsMM TOMOSYNTHESIS SCREENING BI04/12/2023 9:26 AM EST from Last 3 Months or Most Recently Relevant to Health Maintenance Results * MM TOMOSYNTHESIS SCREENING BI (04/12/2023 9:26 AM EST)Anatomical Region LateralityModalityOtherSpecimen (Source)Anatomical Location / Laterality Collection Method / VolumeCollection TimeReceived Time04/12/2023 9:26 AM EST Narrative 04/12/2023 9:27 AM EST [facility] ?[address] ? [place] [address] ? Mammography Report ? Signed ? Patient: Lincoln,Deshawn L ?MR#: [id number] ?? : 1960 ?Acct:[id number] ?? Age/Sex: 62 / F ?ADM Date: 12/05/23 ?? Loc: MAMMO ? Attending : Alexia Loredo [employer] ? Ordering Physician: Gertrude,Alexia [employer] ?Results: ? Date of Service: 04/11/23 ?Follow Up: ? Procedure(s): MM tomosynthesis screening BI ?? Accession Number(s): [id number] ? cc: Alexia Loredo NP ? Patient Name: ? DESHAWN GAVINO ? MR#: [id number] ? : 1960 ? Exam Date: 04/11/2023 ?? Ordering Doctor: IRAM Loredo CNP ? RADIOLOGY REPORT ? PROCEDURE: ? MM TOMOSYNTHESIS SCREENING BI ? COMPARISON: ? MG STEREO CORE NDL W CLIP LT, 11/16/2021. ??MAMMO POST BIOPSY ?? LEFT, 11/16/2021. ? INDICATIONS: ? Screening Mammogram ? Calculator Name ? NCI Breast Cancer Risk Assessment Tool ?? 5 Year Breast Cancer Risk ? 1.70% ?? Lifetime Breast Cancer Risk ? 7.20% ?? Personal Breast Cancer ?No ?? Personal Ovarian Cancer ? No ?? Treatments ? None ?? Family Cancers ? None ? LOCATION: ? [facility] ? BREAST COMPOSITION: ? Heterogeneously dense,which may obscure small masses. ? FINDINGS: ? DIAGNOSTIC CATEGORY 2--BENIGN FINDING. NO CHANGE FROM COMPARISON. ??Scattered ?? benign-appearing calcifications are present. ??Scattered benign-appearing lymph ?? nodes are present. ? RIGHT BREAST: ??No significant suspicious finding. ? LEFT BREAST: ??No significant suspicious finding. ??Stable areas of focal ?? asymmetry and two micro clip markers upper outer quadrant. ? RECOMMENDATIONS: ? ROUTINE MAMMOGRAM AND CLINICAL EVALUATION IN 12 MONTHS. ? PLEASE NOTE: ??A NORMAL MAMMOGRAM DOES NOT EXCLUDE THE POSSIBILITY OF BREAST ?? CANCER. ??A CLINICALLY SUSPICIOUS PALPABLE LUMP SHOULD BE BIOPSIED. ? Dictated by: William Melchor MD on 04/12/2023 at 09:23 ? Approved by: William Melchor MD on 04/12/2023 at 09:26 ? Dictated By: ?William Melchor M.D. ? Signed By: ?04/12/23 09 ? DD/ 0926 ? TD/TT: ? Decorating Consultant: Procedure Note Radiology, Radiologist, MD - 04/12/2023 [place] [address] Mammography Report Signed Patient: Deshawn Mancia LMR#: [id number] : 1960Acct:[id number] Age/Sex: 62 / FADM Date: 04/11/23 Loc: MAMMO Attending Dr: Alexia Loredo NP Ordering Physician: Alexia Loredo NPResults: Date of Service: 04/11/23Follow Up: Procedure(s): MM tomosynthesis screening BI Accession Number(s): [id number] cc: Alexia Loredo NP Patient Name: DESHAWN MANCIA MR#: [id number] : 1960 Exam Date: 04/11/2023 Ordering Doctor: IRMA Loredo EXERCISER RADIOLOGY REPORT PROCEDURE: MM TOMOSYNTHESIS SCREENING BI COMPARISON: MG STEREO CORE NDL W CLIP LT, 11/16/2021. MAMMO POSTBIOPSY LEFT, 11/16/2021. INDICATIONS: Screening Mammogram Calculator Name NCI Breast Cancer Risk Assessment Tool 5 Year Breast Cancer Risk 1.70% Lifetime Breast Cancer Risk 7.20% Personal Breast Cancer No Personal Ovarian Cancer No Treatments None Family Cancers None LOCATION: [facility] BREAST COMPOSITION: Heterogeneously dense,which may obscure smallmasses. FINDINGS: DIAGNOSTIC CATEGORY 2--BENIGN FINDING. NO CHANGE FROM COMPARISON.Scattered benign-appearing calcifications are present. Scattered benign-appearinglymph nodes are present. RIGHT BREAST: No significant suspicious finding. LEFT BREAST: No significant suspicious finding. Stable areas of focal asymmetry and two micro clip markers upper outer quadrant. RECOMMENDATIONS: ROUTINE MAMMOGRAM AND CLINICAL EVALUATION IN 12 MONTHS. PLEASE NOTE: A NORMAL MAMMOGRAM DOES NOT EXCLUDE THE POSSIBILITY OFBREAST CANCER. A CLINICALLY SUSPICIOUS PALPABLE LUMP SHOULD BE BIOPSIED. Dictated by: William Melchor MD on 04/12/2023 at 09:23 Approved by: William Melchor MD on 04/12/2023 at 09:26 Dictated By: William Melchor M.D. Signed By:04/12/23926 DD/ 5 TD/TT: Decorating Consultant: Authorizing ProviderResult TypeResult StatusLisa Loredo NPCLINISYNC IMAGING Final Result from Last 3 Months or Most Recently Relevant to Health Maintenance Insurance Care Teams Team MemberRelationshipSpecialtyStart DateEnd Date Aakash Hoffmann MD [facility] - [facility] Alexia Loredo NP [address] [place] [address] PCP - [facility]03/08/25 Alexia Loredo NP Referring PhysicianNurse Practitioner11/18/22
== END 2025-04-16 07:02 | disposition home or self-care (01) ==
LOC: MAMMO 07:02
PROVIDERS: PCP Nurse Practitioner; Visit Provider Nurse Practitioner
DX: Z12.31 Encounter for screening mammogram for malignant neoplasm of breast (principal)
CPT/HCPCS: 77063; 77067